=== PATIENT | female | born 1955 | race Caucasian/White ===

== ENCOUNTER → 2016-12-31 | Outpatient (CLI) | payer OTHER ==
[~2016-12-31] MED LIST: ALBUAER2 INH; ATOR-24 PO; CALC150C PO; CITA40TA12 PO; CMD5 PO; DULA1INJ INJ; ENAL20TA PO; INSU100I23 SQ; LSX20 PO; MAGN400T5 PO; MAGN500T15 PO; NVLG SQ; NVLGI SC; NVLGI SQ; OMEG10007 PO; OMEP40CA41 PO; OXYC-57 PO; PRED50TA PO; TRAM-10 PO; TRC145 PO; VNTHFA/IN INH; VST5 PO; WARF10TA4 PO; WARF5TAB7 PO
[2016-12-31 17:41] LABS: INR 2.6 (0.9-1.1); PROTHROMBIN TIME (PATIENT) 28.7 SECONDS (9.0-12.0)
== END | disposition home or self-care (01) ==
LOC: C.LABPBG 13:17
PROVIDERS: ATTEND Internal Medicine
DX: Z51.81 Encounter for therapeutic drug level monitoring (principal); Z79.01 Long term (current) use of anticoagulants

== ENCOUNTER → 2017-01-13 | Outpatient (CLI) | payer OTHER ==
--- NOTE | 2017-01-13 11:25 | DIAGNOSTIC IMAGING REPORT ---
THYROID ULTRASOUND HISTORY: E04.2 Multinodular [id number] COMPARISON: Thyroid ultrasound 09/07/2015. FINDINGS: Right lobe: 9.1 x 4.6 x 5.3 cm. Heterogeneous containing multiple nodules. Dominant nodule measures 5.7 x 6.6 x 4.2 cm. This is similar in size to the prior study. There is a second hyperechoic 3.4 x 4.2 x 3.3 cm nodule. Left lobe: 6.6 x 2.8 x 2.9 cm. Stable 17 x 16 x 15 mm hypoechoic nodule. This may contain a few cystic spaces rather than calcification. This is also similar in size compared to the prior study. IMPRESSION: Enlarged multinodular thyroid gland as described above. Bilateral thyroid nodules are similar to the prior study. Electronically signed by: Tylor Phillip M.D. 01/13/2017 11:24 AM Dictated Date/Time: 01/13/2017 11:20 AM
== END | disposition home or self-care (01) ==
LOC: C.ULTR 10:36
PROVIDERS: ATTEND Neuromusculoskeletal Medicine & OMM
DX: E04.2 Nontoxic multinodular goiter (principal); K11.20 Sialoadenitis, unspecified

== ENCOUNTER → 2017-01-14 | Outpatient (CLI) | payer OTHER ==
[2017-01-14 12:45] LABS: CHOLESTEROL/HDL RATIO 4.1
== END | disposition home or self-care (01) ==
LOC: C.LABPBG 08:53
PROVIDERS: ATTEND Neuromusculoskeletal Medicine & OMM
DX: E11.65 Type 2 diabetes mellitus with hyperglycemia (principal)

== ENCOUNTER → 2017-04-05 | Outpatient (CLI) | payer OTHER ==
[2017-04-05 17:34] LABS: BLOOD UREA NITROGEN 22 mg/dl (7-18); BUN/CREATININE RATIO 20.1 (10-20); CALCIUM 9.2 mg/dl (8.5-10.1); CARBON DIOXIDE 33 mmol/L (21-32); CHLORIDE 101 mmol/L (98-107); GLUCOSE 268 mg/dl (70-99); POTASSIUM 4.3 mmol/L (3.5-5.1); SODIUM 138 mmol/L (136-145)
[2017-04-05 18:32] LABS: RATIO 61.6 mcg/mg (0-30.0)
[2017-04-06 06:06] LABS: ESTIMATED AVERAGE GLUCOSE 209 mg/dl; HA1C FLAG Normal (Normal)
== END | disposition home or self-care (01) ==
LOC: C.LABPBG 14:03
PROVIDERS: ATTEND Nurse Practitioner Family
DX: E11.65 Type 2 diabetes mellitus with hyperglycemia (principal)

== ENCOUNTER → 2017-05-12 | Outpatient (CLI) | payer OTHER ==
--- NOTE | 2017-05-13 05:23 | PAP/PSG TECHNICIAN REPORT ---
[facility] Physical Chemist Polysomnogram Report Study name: None Report date: 05/13/2017 Study date: 05/12/2017 Referring Physician: Dr. Darren Van Name: URIEL ARMIJO Interpreting Physician: Andrae Baum M.D. Date of : 1955 Physical Chemist: KRISTIE Zepeda. Sex: Female Age: 61 StudyType: PSG PAP Weight: 298 lbs Height: 61 years, Height 5' 7" Neck Circum:21inches BMI: 46.67 Medications: Jantoven 10mg, Warfarin 10mg, Citalopram 40mg, Lantus 100unit/ml, Novolog 100unit/ml, Omeprazole 40mg, Enalapril 20mg, Furosemide 20mg, Clindamycin 300mg, Dexamethasone 0.75mg, Lipitor 40mg, Claritin 10mg, Patient History Study started on room air with 4cwp cpap in room #8. 61 yr old female here tonight for a new titration study. She had a HST that had an average CHEVY of 22. Her neck circ=21 inches. She failed cpap years ago but is willing to try again. Parameters Monitored NPSG: E1-M2, E2-M1, Fp1-M2, Fp2-M1, F3-M2, F4-M2, F4-M1, C3-M2, C4-M2, C4-M1, O1-M2, O2-M2, O2-M1, T3-M2, T4-M1, P3-M2, P4-M1, CHIN1, CHIN2, HR, EKG, Legs, PFLOW, SNOR, FLOW, CFLOW, Tidal Volume, THOR, ABDO, SpO2, PLTH, CPRESS, ETCO2 Wave, ETCO2, pH Sleep Architecture Sleep Stages Time at Lights Off 10:36:43 PM STAGES Time (min.) TST (%) Time at Lights On 5:00:13 AM Wake 109.5 -- Total Recording Time (TRT) 383.50 min. N1 17.0 6 Total Sleep Period (TSP) 324.0 min. N2 183.5 67 Total Sleep Time (TST) 274.0min. N3 73.5 27 Awake Time 109.5 min. REM 0.0 0 Wake after Sleep Onset 66.0 min. Sleep Efficiency (SE) 71 % Sleep Onset Latency (SALAS) 43.5 min. Number of Stage 1 Shifts None Awakenings 19 Stage Changes 76 Number of REM periods N/A REM 0.0 0 REM Latency NONE min. NREM 274.0 100 Body Position Analysis Supine Right Left Side Prone Vertical Total Sleep Time (min.) 99.8 0.0 239.5 239.50 0.0 0.0 Total Sleep Time (%) 13% 0% 87% 87 0% N/A% Total Sleep Time REM (min.) 0.0 0.0 0.0 None 0.0 0.0 Total Sleep Time NREM (min.) 34.5 0.0 239.5 None 0.0 0.0 Intermittent Wake (min.) 65.3 0.0 44.2 None 0.0 0.0 Total Sleep Period (%) 14% None None None None None Arousals Myoclonus (PLM) * Events Count Index Events Count Index Spontaneous 9 2 Events Awake (PLMW) 200 109.6 Respiratory 13 2.6 Events Asleep w/ Arousal (PLMA) 18 3.9 PLM 18 4 Events Asleep w/o Arousal (PLMS) 459 100.5 Snoring 8 2 Total Asleep 477 104.5 Total 47 10 Total 677 106 Respiratory Analysis * CA OA MA CH H RERA Total Count 0 5 0 0 25 0 30 Index 0.0 1.1 0.0 0 5.5 0 6.6 Mean Duration 0.0 25.9 0.0 0.00 24.2 0.0 24.5 Longest Duration 0.0 40.8 0.0 0.00 0.0 0.0 42.5 Respiratory Event Summary Total Supine ~Supine Right Left Prone REM NREM Apneas Count 5 1 4 N/A 4 N/A N/A 5 Index 1.1 2 1 N/A 1.0 N/A N/A 1 Hypopneas (4% Desat) Count 25 2 23 N/A 23 N/A N/A 25 Index 5.5 3.5 6 N/A 5.8 N/A N/A 5.5 Apneas & All Hypopneas Count 30 3 27 N/A 27 N/A N/A 30 Index 6.6 5 7 N/A 7 N/A N/A 6.6 Respiratory Events (Service Officer+All Hyp+RERA) Count 30 3 27 N/A 27 N/A N/A 30 Index 6.6 5 7 N/A 6.8 N/A N/A 6.6 Respiratory Related Arousal Count 13 3 10 N/A 10 N/A N/A 12 Index 2.6 3 3 N/A 3 N/A N/A 3 Snoring Analysis Supine Right Left Prone REM NREM Total Snore duration 8.6 min Snores count 147 N/A 223 N/A N/A 370 370 Snore mean duration 1.4 Sec Snores index 256 N/A 56 N/A N/A 81.0 81.0 TST with snoring (%) 3.1% Desaturation Event Summary: Minimum %SpO2 Event Count Mean/Min/Max Duration(sec.) Desaturation Index % Time In Bed > 90 85 26.1 / 8.0 / 58.8 14.6 93.0 86 - 90 2 8.5 / 8.0 / 9.0 4.7 6.8 81 - 85 0 N/A 0.0 0.1 76 - 80 0 N/A 0.0 0.0 71 - 75 0 N/A 0.0 0.0 66 - 70 0 N/A 0.0 0.0 61 - 65 0 N/A 0.0 0.0 56 - 60 0 N/A 0.0 0.0 51 - 55 0 N/A 0.0 0.0 < 50 0 N/A 0.0 0.0 Total REM NREM Awake <50% 0.0 min. 0.0 min. 0.0 min. 0.0 min. 51 - 60% 0.0 min. 0.0 min. 0.0 min. 0.0 min. 61 - 70% 0.0 min. 0.0 min. 0.0 min. 0.0 min. 71 - 80% 0.0 min. 0.0 min. 0.0 min. 0.0 min. 81 - 90% 26.1 min. 0.0 min. 11.7 min. 14.4 min. 91 - 100% 348.6 min. 0.0 min. 262.3 min. 86.3 min. Average 93 0 93 92 Minimum SpO2 81 N/A 87 81 Desaturation Event Index 13.3 0.0 8.8 25.2 # Desat. Events below 89% 19 N/A 8 11 Time(%) with Saturation below 89% 0.7 0.0 0.2 0.5 Time(min.) with Saturation below 89% 2.7 0.0 0.8 1.9 Time (mins) REM (mins) NREM (mins) % of TST SpO2 Below 90% 33 N/A N33 1.2 SpO2 Below 88% 3 0 0 0 Heart Rate Analysis Min (bpm) Max (bpm) Average (bpm) Awake 59 110 74 NREM 59 81 68 REM N/A N/A N/A Overall 59 81 68 Supplemental O2 Values Minimum O2 level: None Value Start Time End Time Physical Chemist Comments Mrs. Armijo slept in the left and supine positions. Cardiac arrhythmia and leg movements noted, please see print out. No bruxism noted. CPAP was initiated at +4 CMH2O and up-titrated to an optimal level of +10 CMH2O, which nearly eliminated all respiratory events and snoring. A small Quattro Air full face mask by [employer]umi was used during titration. She did not use the restroom during the night. She stated that she slept better than she thought she would. The final report will be interpreted and signed by a sleep physician. The completed physician report will then be placed in the patient medical record. Therapy Event: Therapy (cm H20) 4 5 6 7 8 9 10 Total Time at Pressure (min.) 55.4 48.4 8.5 14.9 138.0 53.7 64.5 TST at Pressure (min.) 9.5 35.8 8.5 14.9 113.0 46.2 46.0 # Periods 1 1 1 1 1 1 1 Sleep Onset (min.) 43.5 2.1 0.0 0.0 0.0 0.0 0.0 REM Onset (min.) N/A N/A N/A N/A N/A N/A N/A Sleep Efficiency % 17 73 100 100 81 86 71 Wakefulness (%) 82.8 26.1 0.0 0.0 18.1 14.0 28.7 Wakefulness (min.) 45.9 12.6 0.0 0.0 25.0 7.5 18.5 NREM 1 (%) 1.8 9.3 5.9 6.7 2.7 5.1 5.4 NREM 1 (min.) 1.0 4.5 0.5 1.0 3.8 2.7 3.5 NREM 2 (%) 15.4 64.6 94.1 81.7 33.7 64.2 65.9 NREM 2 (min.) 8.5 31.3 8.0 12.2 46.5 34.5 42.5 NREM 3 (%) 0.0 0.0 0.0 11.6 45.5 16.8 0.0 NREM 3 (min.) 0.0 0.0 0.0 1.7 62.8 9.0 0.0 REM (%) 0.0 0.0 0.0 0.0 0.0 0.0 0.0 REM (min.) 0.0 0.0 0.0 0.0 0.0 0.0 0.0 # Arousals 7 16 4 2 8 5 5 Arousal Index 44.2 26.8 28.3 8.0 4.2 6.5 6.5 # Snore 46 113 21 130 26 17 17 Snore Index 290.5 189.3 148.6 522.0 13.8 22.1 22.2 AHI 12.6 8.4 49.5 20.1 3.2 6.5 0.0 AHI Supine 12.6 2.4 N/A N/A N/A N/A N/A AHI Non-Supine N/A 22.2 49.5 20.1 3.2 6.5 0.0 NREM AHI 12.6 8.4 49.5 20.1 3.2 6.5 0.0 REM AHI N/A N/A N/A N/A N/A N/A N/A RDI 12.6 8.4 49.5 20.1 3.2 6.5 0.0 # Obstructive 0 1 0 0 3 1 0 # Central Ap 0 0 0 0 0 0 0 # Mixed 0 0 0 0 0 0 0 # Hypopneas 2 4 7 5 3 4 0 RERAS 0 0 0 0 0 0 0 Total Respiratory Events 2 5 7 5 6 5 0 Time Below SpO2 89.00% (min.) 0.0 0.1 0.2 0.0 0.3 0.2 0.0 Mean NREM SpO2 (%) 92 92 92 92 93 94 93 Mean REM SpO2 (%) N/A N/A N/A N/A N/A N/A N/A Mean Sleep SpO2 (%) 92 92 92 92 93 94 93 Min NREM SpO2 (%) 89 87 88 89 87 87 89 Min REM SpO2 (%) N/A N/A N/A N/A N/A N/A N/A Position Supine (min.) 9.5 25.0 0.0 0.0 0.0 0.0 0.0 Position Non-supine (min.) 0.0 10.8 8.5 14.9 113.0 46.2 46.0 LM Index Sleep 183.2 164.2 148.6 144.5 84.4 33.8 140.8 LM Index NREM 183.2 164.2 148.6 144.5 84.4 33.8 140.8 LM Index REM N/A N/A N/A N/A N/A N/A N/A Mean Heart Rate (bpm) 74 72 72 72 68 65 65 Min Heart Rate (bpm) 69 65 65 66 60 59 59
--- NOTE | 2017-05-17 06:57 | POLYSOMNOGRAPH REPORT ---
CLINICAL DATA: A 61-year-old female with BMI of 46.[address] Tal Van for a titration study. She had a home sleep study that showed moderate sleep apnea with an CHEVY of 22. She failed CPAP years ago, but was willing to try again. SLEEP ARCHITECTURE: Total sleep period was 324 minutes. Total sleep time was 274 minutes of all non-REM sleep. Sleep onset latency was delayed at 43.5 minutes. Sleep efficiency was 71%. Wake after sleep onset was 66 minutes. Sleep consisted of stage N1 6%, N2 67%, and N3 27%. AROUSAL DATA: 47 arousals were recorded for an index of 10 per hour. PERIODIC LIMB MOVEMENT DATA: Severely elevated limb movements during sleep were noted. There were 477 limb movements of sleep noted for an index of 104.5 per hour with arousal index of 3.9 per hour. RESPIRATORY DATA: The AHI was 6.6. There 5 obstructive apneic episodes. The longest apneic episode was 40.8 seconds. There were 25 hypopneic episodes. The mean duration of hypopnea was 24.2 seconds. OXIMETRY DATA: Transient hypoxemia was seen. Oxygen jamie was 87%. Mean saturation was 93%. Time below 88% was 3 minutes. EKG: Heart rates ranged from 59-81 beats per minute. No significant cardiac arrhythmias were noted. 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 Frequent leg movements were noted. The patient used a small Quattro Air full facemask by [employer]. She was titrated up to a final pressure of 10 cm water pressure. At that level, she slept for 46 minutes with an AHI of 0. IMPRESSION: Moderate sleep apnea corrected with CPAP 10 cm of water pressure, small Quattro full facemask by [employer]. RECOMMENDATIONS: The patient should be started on the above noted treatment regimen and seen back in followup within 90 days to document efficacy and compliance. [facility]
== END ==
LOC: C.NEUR 20:00
PROVIDERS: ATTEND Internal Medicine
DX: G47.30 Sleep apnea, unspecified (principal)

== ENCOUNTER → 2017-06-02 | Outpatient (CLI) | payer OTHER ==
[2017-06-02 17:22] LABS: BASO % 0.6 %; BASO ABS # 0.03 K/uL (0-0.2); COMPLETE YES; EOS % 2.8 %; HEMATOCRIT 44.3 % (37-47); IG% 0.2 %; LYMPH % 36.1 %; LYMPH ABS # 1.92 K/uL (1.2-3.4); MEAN CELL VOLUME 94.5 fL (80-100); MEAN CORPUSCULAR HEMOGLOBIN 31.3 pg (25-34); MEAN CORPUSCULAR HGB CONC 33.2 g/dl (32-36); MEAN PLATELET VOLUME 12.3 fL (7.4-10.4); MONO % 8.3 %; PLATELET COUNT 165 K/uL (130-400); RED BLOOD COUNT 4.69 M/uL (4.2-5.4); WHITE BLOOD COUNT 5.32 K/uL (4.8-10.8)
[2017-06-02 17:40] LABS: ALT/SGPT 44 U/L (12-78); AST/SGOT 35 U/L (15-37); BLOOD UREA NITROGEN 22 mg/dl (7-18); BUN/CREATININE RATIO 21.8 (10-20); CALCIUM 8.9 mg/dl (8.5-10.1); CARBON DIOXIDE 30 mmol/L (21-32); CHLORIDE 106 mmol/L (98-107); GLUCOSE 154 mg/dl (70-99); POTASSIUM 4.7 mmol/L (3.5-5.1); SODIUM 141 mmol/L (136-145)
[2017-06-02 17:43] LABS: ALB/GLOB RATIO 0.8 (0.9-2); ALKALINE PHOSPHATASE 54 U/L (45-117)
[2017-06-02 18:03] LABS: CHOLESTEROL/HDL RATIO 2.7
[2017-06-02 18:07] LABS: RATIO 38.1 mcg/mg (0-30.0)
[2017-06-02 18:49] LABS: ESTIMATED AVERAGE GLUCOSE 183 mg/dl; HA1C FLAG Normal (Normal)
== END | disposition home or self-care (01) ==
LOC: C.LABPBG 10:59
PROVIDERS: ATTEND Nurse Practitioner Family
DX: R06.02 Shortness of breath (principal); E11.65 Type 2 diabetes mellitus with hyperglycemia

== ENCOUNTER → 2017-07-14 | Outpatient (CLI) | payer OTHER ==
[2017-07-14 12:44] LABS: CHOLESTEROL/HDL RATIO 3.3
== END | disposition home or self-care (01) ==
LOC: C.LABPBG 09:50
PROVIDERS: ATTEND Internal Medicine
DX: M25.40 Effusion, unspecified joint (principal)

== ENCOUNTER 2017-07-24 09:59 | Emergency (ER) | payer OTHER ==
[~2017-07-24] VITALS: Ht 170.2 cm; Wt 136.7 kg
[~2017-07-24 09:59] MED LIST changes: -CALC150C PO; -DULA1INJ INJ; -ENAL20TA PO; -INSU100I23 SQ; -MAGN500T15 PO; -NVLG SQ; -OMEG10007 PO; -OMEP40CA41 PO; -OXYC-57 PO; -PRED50TA PO; -TRAM-10 PO; -TRC145 PO; -VNTHFA/IN INH; -WARF10TA4 PO; -WARF5TAB7 PO
[2017-07-24 10:04] VITALS: TEMP 36.4; Ht 170.2 cm; Wt 136.7 kg
[2017-07-24] MEDS ORDERED: CYCLOBENZAPRINE HCL 5 MG TAB PO STA (10:24)
[2017-07-24] MEDS ORDERED: METHYLPREDNISOLONE 125 MG VIAL IV STA (10:24)
[2017-07-24] MEDS ORDERED: ACETAMINOPHEN 500 MG TAB PO STA (10:24)
--- NOTE | 2017-07-24 10:28 | EMERGENCY ROOM VISIT NOTE ---
History Report prepared by Miranda: Giana Klein Under the Supervision of: Dr. Soto Petit M.D. 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 The patient states that she has been having right hip pain that radiates into her buttock and down her right leg. She notes that she was recently diagnosed with sciatica and has seen a chiropractor without relief of her symptoms. She reports that she has also been trying to use ice, heat, and Tylenol for her pain without relief as well. The patient states that her mother is sick and she has been doing more lifting to help her recently. Positive numbness in the right leg. She reports that she has been stumbling more recently secondary to the numbness. Negative groin numbness or tingling, SOB, fever, chills, weight loss, recent travel, recent trauma, alcohol use, drug use. She states that she is on Warfarin and her levels checked monthly have been good. Source of History: patient Onset: a few weeks ago Position: leg (right) Quality: numbness Timing: constant Modifying Factors (Relieving): other (none) Associated Symptoms: + numbness, No fevers, No chills, No SOB Note: Negative groin numbness or tingling, weight loss, recent travel, recent trauma, alcohol use, drug use. Review of Systems See HPI for pertinent positives and negatives. A total of ten systems were reviewed and were otherwise negative. Past Medical & Surgical Medical Problems: (1) Adrenal Disorder Nec (2) Celiac disease (3) Diab Kelsy Wo Compl, Type Ii Or Unspec Type, Not Uncntrld (4) Factor V disorder (5) Heart disease (6) HTN (hypertension) (7) Lyme disease (8) Pericarditis (9) Pulmonary embolism Surgical Problems: (1) H/O cardiac catheterization (2) H/O total adrenalectomy (3) History of hysterectomy (4) Pacemaker Family History Diabetes mellitus FH: cancer FH: gallbladder disease Hypertension Kidney disease Kidney stones Stroke Social History Smoking Status: Never Smoker Alcohol Use: none Drug Use: none Marital Status: Housing Status: lives with significant other Occupation Status: employed Current/Historical Medications Scheduled Albuterol (Ventolin Hfa), 2 PUFFS INH Q4 Atorvastatin (Lipitor), 40 MG PO DAILY Calcium Citrate (Angelo-Citrate), 600 MG PO TID Citalopram Hydrobromide (Celexa), 40 MG PO QPM Dulaglutide (Trulicity), 0.75 MG INJ WK Enalapril Maleate (Enalapril Maleate), 20 MG PO BID Fish Oil (Milton-3), 1 CAP PO DAILY Furosemide (Furosemide), 40 MG PO DAILY Insulin Aspart (Novolog), 30-45 UNITS SQ TID Insulin Glargine (Basaglar Kwikpen), 60 UNITS SQ QAM Insulin Glargine (Basaglar Kwikpen), 75 UNITS SQ QPM Magnesium (Magnesium), 500 MG PO DAILY Prednisone (Prednisone), 50 MG PO DAILY Warfarin Sod (Jantoven), 5 MG PO DIRECTED Warfarin Sod (Jantoven), 10 MG PO DIRECTED Scheduled PRN Tramadol (Ultram), 25 MG PO Q8H PRN for Pain Allergies Coded Allergies: Benzocaine (Verified Allergy, Unknown, water blisters, 07/24/17) Penicillins (Verified Allergy, Unknown, unknown, 07/24/17) Fenofibrate (Unverified Adverse Reaction, Unknown, diarrhea, 07/24/17) Morphine (Verified Adverse Reaction, Unknown, vomiting, 07/24/17) Physical Exam Vital Signs Date Time Temp Pulse Resp B/P (MAP) Pulse Ox O2 Delivery O2 Flow Rate FiO2 07/24/17 13:00 72 16 132/75 94 Room Air 07/24/17 12:00 89 16 137/77 94 Room Air 07/24/17 10:04 36.4 85 18 156/80 98 Room Air Physical Exam GENERAL: Awake, alert, obese, well-appearing, NAD HENT: Normocephalic, atraumatic. EYES: Normal conjunctiva. Sclera non-icteric. NECK: Supple. No nuchal rigidity. FROM. RESPIRATORY: CTAB, no rhonchi, wheezing, crackles CARDIAC: RRR, no MRG, distant sounds secondary to body habitus 2/2 ABDOMEN: Soft, NTND, BS+ MSK: No chest wall TTP, no LE edema, has some reproducible right lower back pain , lower lumbar vertical incisional scar, pain with internal and external rotation of hip. Mild right calf pain, no erythema, calor, or asymmetry NEURO: GCS 15, CN 2-12 intact, moves all 4s on command +SLR -opposite SLR - ROSE MARY test, neuro intact distally, no saddle anesthesia SKIN: No rash or jaundice noted. Medical Decision & Procedures ER Provider Diagnostic Interpretation: Radiology results as stated below per my review and radiologist interpretation: RIGHT LOWER EXTREMITY VENOUS DOPPLER FINDINGS: The right common femoral, superficial femoral and popliteal veins were compressible. Augmentation was normal. Flow was shown within the deep calf vessels. IMPRESSION: No evidence of deep venous thrombus within the right lower extremity. Electronically signed by: Gm Pittman M.D. 07/24/2017 11:46 AM Dictated Date/Time: 07/24/2017 11:46 AM Laboratory Results 07/24/17 10:50 Red Blood Count 4.79, Mean Corpuscular Volume 93.5, Mean Corpuscular Hemoglobin 30.3, Mean Corpuscular Hemoglobin Concent 32.4, Mean Platelet Volume 11.3, Neutrophils (%) (Auto) 56.4, Lymphocytes (%) (Auto) 32.3, Monocytes (%) (Auto) 7.2, Eosinophils (%) (Auto) 3.3, Basophils (%) (Auto) 0.6, Neutrophils # (Auto) 3.04, Lymphocytes # (Auto) 1.74, Monocytes # (Auto) 0.39, Eosinophils # (Auto) 0.18, Basophils # (Auto) 0.03 07/24/17 10:50 Test 07/24/17 10:50 White Blood Count 5.39 K/uL (4.8-10.8) Red Blood Count 4.79 M/uL (4.2-5.4) Hemoglobin 14.5 g/dL (12.0-16.0) Hematocrit 44.8 % (37-47) Mean Corpuscular Volume 93.5 fL (80-100) Mean Corpuscular Hemoglobin 30.3 pg (25-34) Mean Corpuscular Hemoglobin Concent 32.4 g/dl (32-36) Platelet Count 191 K/uL (130-400) Mean Platelet Volume 11.3 fL (7.4-10.4) Neutrophils (%) (Auto) 56.4 % Lymphocytes (%) (Auto) 32.3 % Monocytes (%) (Auto) 7.2 % Eosinophils (%) (Auto) 3.3 % Basophils (%) (Auto) 0.6 % Neutrophils # (Auto) 3.04 K/uL (1.4-6.5) Lymphocytes # (Auto) 1.74 K/uL (1.2-3.4) Monocytes # (Auto) 0.39 K/uL (0.11-0.59) Eosinophils # (Auto) 0.18 K/uL (0-0.5) Basophils # (Auto) 0.03 K/uL (0-0.2) RDW Standard Deviation 48.1 fL (36.4-46.3) RDW Coefficient of Variation 14.1 % (11.5-14.5) Immature Granulocyte % (Auto) 0.2 % Immature Granulocyte # (Auto) 0.01 K/uL (0.00-0.02) Prothrombin Time 23.9 SECONDS (9.0-12.0) Prothromb Time International Ratio 2.2 (0.9-1.1) Anion Gap 5.0 mmol/L (3-11) Est Creatinine Clear Calc Drug Dose 71.2 ml/min Estimated GFR () 56.5 Estimated GFR (Non- 48.7 BUN/Creatinine Ratio 21.0 (10-20) Calcium Level 9.4 mg/dl (8.5-10.1) Laboratory results reviewed by me Medications Administered Medications (Trade) Dose Ordered Sig/Juan David Route Start Time Stop Time Status Last Admin Dose Admin Methylprednisolone Sodium Succinate (Solu-Medrol IV) 125 mg NOW STAT IV 07/24/17 10:24 07/24/17 10:27 DC 07/24/17 10:32 125 MG Cyclobenzaprine HCl (Flexeril Tab) 10 mg QAM STAT PO 07/24/17 10:24 07/24/17 10:27 DC 07/24/17 10:32 10 MG Acetaminophen (Tylenol Tab) 1,000 mg NOW STAT PO 07/24/17 10:24 07/24/17 10:27 DC 07/24/17 10:33 1,000 MG Sodium Chloride 500 ml @ 999 mls/hr Q31M STAT IV 07/24/17 11:30 07/24/17 12:00 DC 07/24/17 12:08 999 MLS/HR ED Course 1009: The patient was evaluated in room A12B. A complete history and physical exam was performed. 1102: I reevaluated the patient. She is resting comfortably. 1209: I reevaluated and updated the patient. 1221: I reevaluated the patient. Discussed results and discharge instructions: She verbalized understanding and agreement. The patient is ready for discharge. 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 Differential diagnosis: Etiologies such as musculoskeletal, disc herniation, fracture, aortic disease, metastatic disease, cord compression, discitis, infection, renal colic, gastrointestinal, acute exacerbation of chronic back pain, sciatica, cauda equina, as well as others were entertained. Patient was seen and evaluated at the bedside. Patient had signs and symptoms concerning with a possible radiculopathy versus sciatica. Patient did not have any unexplained weight loss, bowel or bladder incontinence, saddle anesthesia or lower extremity weakness. Patient also did not have any history of IV drug abuse or chronic steroids or immunosuppressive therapy. Patient had blood work that was fairly unremarkable. Patient also had an ultrasound given her history of factor V Leiden which was negative for acute thrombus. Patient's INR was also therapeutic. Patient's pain mildly improved. Patient did have mild elevation compared to previous and her kidney functions issues given some fluids. Patient was given strict follow-up for discharge, return precautions as well as reasons to return emergently into the ER. Patient was also told she needs to continue physical therapy and exercises as well as diet and weight loss and more conservative therapy. Patient was told to return if she has numbness saddle anesthesia bowel or bladder incontinence or weakness. Patient agreed with plan of care and patient was safely discharged home. Medication Reconcilliation Current Medication List: was personally reviewed by me Blood Pressure Screening Patient's blood pressure: Elevated blood pressure Blood pressure disposition: Elevated BP felt to be situational Impression Primary Impression: Sciatica of right side Additional Impression: Back pain Scribe Attestation The scribe's documentation has been prepared under my direction and personally reviewed by me in its entirety. I confirm that the note above accurately reflects all work, treatment, procedures, and medical decision making performed by me. Departure Information Dispostion Home / Self-Care Prescriptions Tramadol (Ultram) 50 Mg Tab 25 MG PO Q8H Y for Pain, #14 TAB Prov: Soto Petit M.D. 07/24/17 Prednisone (Prednisone) 50 Mg Tab 50 MG PO DAILY for back pain for 4 Days, TAB Prov: Soto Petit M.D. 07/24/17 Referrals Tal Van M.D. (PCP) Forms HOME CARE DOCUMENTATION FORM, IMPORTANT VISIT INFORMATION Patient Instructions ED Sciatica, Exercises Back Release, Exercises Back Seated Rotation, Exercises Back Side Stretch, Exercises Lower Back Rotation, My [facility] [place] [employer] Additional Instructions Please return to the emergency department if you have worsening or recurrent symptoms not amenable to at-home treatment. Please call for a follow-up appointment with her primary care physician. Please take your medications as prescribed. If you have other concerns and/or complaints please feel free to also call your primary care physician's office or return the ED for further evaluation, management, and treatment. Please take Tylenol 1000mg every 6 hours over the next two days for pain. Please take your prednisone and tramadol as prescribed. Tramadol can make you sleepy so please take when not needing to be alert, operate heavy machinery, and /or drive. Please return if you have numbness to the groin, lower extremity weakness, or bowel/bladder incontinence. You have been examined and treated today on an emergency basis only. This is not a substitute for, or an effort to provide, complete comprehensive medical care. It is impossible to recognize and treat all injuries or illnesses in a single emergency department visit. It is therefore important that you follow up closely with [facility]. Call as soon as possible for an appointment. Problem Qualifiers Additional Impression: Back pain Back pain location: low back pain Chronicity: acute Back pain laterality: right Sciatica presence: with sciatica Sciatica laterality: sciatica of right side Qualified Codes: M54.41 - Lumbago with sciatica, right side
[2017-07-24] MEDS ORDERED: TRC145 PO (10:50)
[2017-07-24] MEDS ORDERED: DULA1INJ INJ (10:50)
[2017-07-24] MEDS ORDERED: OMEP40CA41 PO (10:50)
[2017-07-24 10:59] LABS: BASO % 0.6 %; BASO ABS # 0.03 K/uL (0-0.2); COMPLETE YES; EOS % 3.3 %; HEMATOCRIT 44.8 % (37-47); IG% 0.2 %; LYMPH % 32.3 %; LYMPH ABS # 1.74 K/uL (1.2-3.4); MEAN CELL VOLUME 93.5 fL (80-100); MEAN CORPUSCULAR HEMOGLOBIN 30.3 pg (25-34); MEAN CORPUSCULAR HGB CONC 32.4 g/dl (32-36); MEAN PLATELET VOLUME 11.3 fL (7.4-10.4); MONO % 7.2 %; NEUT % 56.4 %; PLATELET COUNT 191 K/uL (130-400); RED BLOOD COUNT 4.79 M/uL (4.2-5.4); WHITE BLOOD COUNT 5.39 K/uL (4.8-10.8)
[2017-07-24 11:07] LABS: INR 2.2 (0.9-1.1); PROTHROMBIN TIME (PATIENT) 23.9 SECONDS (9.0-12.0)
[2017-07-24 11:16] LABS: CALCIUM 9.4 mg/dl (8.5-10.1); CREATININE 1.2 mg/dl (0.60-1.20); POTASSIUM 4.5 mmol/L (3.5-5.1)
[2017-07-24] MEDS ORDERED: MAGN500T15 PO (11:22)
[2017-07-24] MEDS ORDERED: OMEG10007 PO (11:22)
[2017-07-24] MEDS ORDERED: ENAL20TA PO (11:22)
[2017-07-24] MEDS ORDERED: CALC150C PO (11:22)
[2017-07-24] MEDS ORDERED: INSU100I23 SQ ×2 (11:22)
[2017-07-24] MEDS ORDERED: NVLG SQ (11:22)
[2017-07-24] MEDS ORDERED: WARF10TA4 PO (11:25)
[2017-07-24] MEDS ORDERED: WARF5TAB7 PO (11:25)
[2017-07-24] MEDS ORDERED: SODIUM CHLORIDE 0.9% 500ML 500 ML IV STA (11:30)
--- NOTE | 2017-07-24 11:48 | DIAGNOSTIC IMAGING REPORT ---
RIGHT LOWER EXTREMITY VENOUS DOPPLER CLINICAL HISTORY: Factor V, on coumadin, leg pain. COMPARISON STUDY: Bilateral lower extremity venous Doppler September 19, 2015. TECHNIQUE: Sonography of the deep venous system of the right lower extremity was performed. Compression and augmentation were evaluated. FINDINGS: The right common femoral, superficial femoral and popliteal veins were compressible. Augmentation was normal. Flow was shown within the deep calf vessels. IMPRESSION: No evidence of deep venous thrombus within the right lower extremity. Electronically signed by: Gm Pittman M.D. 07/24/2017 11:46 AM Dictated Date/Time: 07/24/2017 11:46 AM
[2017-07-24] MEDS ORDERED: PRED50TA PO (12:24)
[2017-07-24] MEDS ORDERED: TRAM-10 PO (12:24)
[2017-07-24 13:00] VITALS: BP 132/75; PULSE 72; O2SAT 94
== END 2017-07-24 13:42 | disposition home or self-care (01) ==
LOC: C.EDB 10:00 → C.EDA 13:42
DX: M54.41 Lumbago with sciatica, right side (principal); E78.5 Hyperlipidemia, unspecified; I10 Essential (primary) hypertension; D68.51 Activated protein C resistance; E11.9 Type 2 diabetes mellitus without complications; Z86.711 Personal history of pulmonary embolism; Z95.0 Presence of cardiac pacemaker; K90.0 Celiac disease; Z79.01 Long term (current) use of anticoagulants; Z90.710 Acquired absence of both cervix and uterus; Z83.3 Family history of diabetes mellitus; Z82.49 Family history of ischemic heart disease and other diseases of the circulatory system; Z84.1 Family history of disorders of kidney and ureter; Z82.3 Family history of stroke; Z79.899 Other long term (current) drug therapy; Z79.4 Long term (current) use of insulin

== ENCOUNTER 2017-08-02 09:50 | Observation (INO) | payer OTHER ==
[~2017-08-02] VITALS: Ht 170.2 cm; Wt 140.5 kg
[~2017-08-02 09:50] MED LIST changes: +CALC150C PO; -CMD5 PO; +DULA1INJ INJ; +ENAL20TA PO; +INSU100I23 SQ; -MAGN400T5 PO; +MAGN500T15 PO; +NVLG SQ; -NVLGI SC; -NVLGI SQ; +OMEG10007 PO; +TRAM-10 PO; -VST5 PO; +WARF10TA4 PO; +WARF5TAB7 PO
[2017-08-02] MEDS ORDERED: VNTHFA/IN INH (10:30)
[2017-08-02] MEDS ORDERED: FENTANYL CITRATE INJ 50 MCG/1 ML 2 ML VIAL IV STA ×2 (10:56→12:16)
--- NOTE | 2017-08-02 11:57 | DIAGNOSTIC IMAGING REPORT ---
RIGHT HUMERUS MIN 2 VIEWS ROUTINE CLINICAL HISTORY: right arm pain, deformity s/p fall Right trauma COMPARISON: None. DISCUSSION: Several compromise exam is a patient had difficulty cooperating for the study. Potential linear fracture radial head. Mild deformity of right humeral head and neck. This may be degenerative although a posttraumatic etiology is not excluded. The humeral shaft is intact. There is no evidence for soft tissue swelling. IMPRESSION: 1. Somewhat limited exam with the humeral shaft appear intact. 2. Degenerative change versus a fracture humeral head. 3. Potential linear nondisplaced hairline fracture radial head The above report was generated using voice recognition software. It may contain grammatical, syntax or spelling errors. Electronically signed by: Prakash Cruz M.D. 08/02/2017 11:55 AM Dictated Date/Time: 08/02/2017 11:53 AM
--- NOTE | 2017-08-02 13:10 | DIAGNOSTIC IMAGING REPORT ---
RIGHT SHOULDER CT CT DOSE: 711.35 mGy.cm HISTORY: Right shoulder pain. humerus, radial head fracture, poor quality x-ray Right TECHNIQUE: Multiaxial CT images of the shoulder were performed and reformatted in the sagittal and coronal plane without the use of contrast. A dose lowering technique was utilized adhering to the principles of ALARA. COMPARISON: Right humerus 08/02/2017. FINDINGS: There is a slightly comminuted right humeral neck fracture which extends to the greater tuberosity of the humeral head. The humeral neck fracture slightly impacted. The greater tuberosity fracture is displaced/angulated laterally. No dislocation. As also a slightly depressed fracture within the anterior inferior glenoid consistent with an osseous Bankart lesion. This is also distracted up to 2 mm. The visualized clavicles intact. There is a small bone island at the base of the coracoid process. Mild surrounding soft tissue swelling within the right shoulder. IMPRESSION: 1. Slightly comminuted and impacted right humeral neck fracture which extends into the greater tuberosity of the humeral head. 2. There is also a slightly depressed and slightly distracted fracture at the anterior inferior glenoid consistent with an osseous Bankart lesion. 3. No dislocation. Electronically signed by: Tylor Phillip M.D. 08/02/2017 1:08 PM Dictated Date/Time: 08/02/2017 1:04 PM
[2017-08-02] MEDS ORDERED: HYDROmorphone INJ 1 MG/ML SYR IV STA (13:36)
--- NOTE | 2017-08-02 15:05 | EMERGENCY ROOM VISIT NOTE ---
History First contact with patient: 10:24 Chief Complaint: FALL Stated Complaint: ARM FRACTURE History of Present Illness The patient is a 61 year old female who presents to the Emergency Room, ALS, with complaints of right arm pain. The patient states she was getting things out of her vehicle this morning, when her foot slipped in the mud. She states she fell into the grass, landing on her right upper arm. The patient denies any loss consciousness, head injury, head, neck, back pain, or other associated symptoms. The patient complains of right upper arm pain from just distal to the shoulder to the proximal elbow. The patient denies any history of injury to the right arm or history of falls. Patient states she was on the ground for approximately 30 minutes prior to EMS arrival. The patient states while in route, she was given fentanyl 100 g, but states it did not help with the pain. EMS did place the arm and [place] splint and a sling. Patient is on warfarin, 5 mg daily for a history of blood clots and Factor V Leiden. The patient rates the pain 7/10, and describes it as sharp. She has been unable to tolerate movement of the arm, as this significantly worsens the pain. Review of Systems A complete 10 point review of systems was reviewed with the patient with pertinent positives and negatives as per history of present illness. All else were negative. Past Medical/Surgical History Medical Problems: (1) Adrenal Disorder Nec (2) Celiac disease (3) Diab Kelsy Wo Compl, Type Ii Or Unspec Type, Not Uncntrld (4) Factor V disorder (5) Heart disease (6) HTN (hypertension) (7) Lyme disease (8) Pericarditis (9) Pulmonary embolism Surgical Problems: (1) H/O cardiac catheterization (2) H/O total adrenalectomy (3) History of hysterectomy (4) Pacemaker Family History Diabetes mellitus FH: cancer FH: gallbladder disease Hypertension Kidney disease Kidney stones Stroke Social History Smoking Status: Never Smoker Alcohol Use: none Drug Use: none Marital Status: Housing Status: lives with significant other Occupation Status: employed Current/Historical Medications Scheduled Atorvastatin (Lipitor), 40 MG PO DAILY Calcium Citrate (Angelo-Citrate), 600 MG PO TID Citalopram Hydrobromide (Celexa), 40 MG PO QPM Dulaglutide (Trulicity), 0.75 MG INJ WK Enalapril Maleate (Enalapril Maleate), 20 MG PO BID Fish Oil (Etna-3), 1 CAP PO DAILY Furosemide (Furosemide), 40 MG PO DAILY Insulin Aspart (Novolog), 30-45 UNITS SQ TID Insulin Glargine (Basaglar Kwikpen), 60 UNITS SQ QAM Insulin Glargine (Basaglar Kwikpen), 75 UNITS SQ QPM Magnesium (Magnesium), 500 MG PO DAILY Warfarin Sod (Jantoven), 5 MG PO DIRECTED Warfarin Sod (Jantoven), 10 MG PO DIRECTED Scheduled PRN Albuterol Hfa (Ventolin Hfa), 2 PUFFS INH Q4H PRN for SOB/Wheezing Physical Exam Vital Signs Date Time Temp Pulse Resp B/P (MAP) Pulse Ox O2 Delivery O2 Flow Rate FiO2 08/02/17 14:22 77 18 141/77 98 Room Air 08/02/17 13:46 93 Room Air 08/02/17 13:03 76 18 153/82 96 Room Air 08/02/17 12:01 73 18 144/76 93 Room Air 08/02/17 10:07 36.7 80 20 183/90 94 Room Air Physical Exam VITALS: Vitals are noted on the nurse's note and reviewed by myself. Vital signs stable. GENERAL: This is a 61-year-old obese female, in no acute distress, but appears in pain, nondiaphoretic, well-developed well-nourished. SKIN: The skin was without rashes, erythema, edema, or bruising. There is no tenting of the skin. Capillary reflex less than 2 seconds. HEAD: Normocephalic atraumatic. EARS: External auditory canals clear, tympanic membranes pearly guzman without erythema or effusion bilaterally. EYES: Pupils equal round and reactive to light and accommodation. Conjunctivae without injection, sclerae without icterus. Extraocular movements intact. NOSE: Patent, turbinates without inflammation or discharge. No sinus tenderness. MOUTH: Mucous membranes moist. Tonsils are not enlarged. Pharynx without erythema or exudate. Uvula midline. Airway patent. Tongue does not deviate. NECK: Supple without nuchal rigidity. No lymphadenopathy. No thyromegaly. Cervical spine is nontender. No JVD. HEART: Regular rate and rhythm without murmurs gallops or rubs. LUNGS: Clear to auscultation bilaterally without wheezes, rales or rhonchi. No dullness to percussion. No retractions or accessory muscle use. ABDOMEN: Positive bowel sounds x 4. Normal tympanic percussion. Soft, nontender, without masses or organomegaly. Mendenhall sign negative. No guarding or rebound tenderness. MUSCULOSKELETAL: Very mild deformity of the right humerus. This could be positional. The patient has significant point tenderness on the proximal right humerus. The patient is unable to tolerate movement of the shoulder or elbow due to pain in the upper arm. The patient denies any elbow pain. She denies any numbness or tingling. Capillary refill less than 2 seconds. The patient is able to pronate and supinate, however this is significantly limited due to pain. Otherwise, no muscle atrophy, erythema, or edema noted. Full range of motion without joint tenderness in all extremities. No tenderness to palpation. Normal gait. Strength 5/5 throughout. NEURO: Patient was alert and oriented to person place and time. Normal sensation to light and sharp touch. Deep tendon reflexes 2+ throughout. No focal neurological deficits. Medical Decision & Procedures ER Provider Diagnostic Interpretation: X-Ray Right Humerus: DISCUSSION: Several compromise exam is a patient had difficulty cooperating for the study. Potential linear fracture radial head. Mild deformity of right humeral head and neck. This may be degenerative although a posttraumatic etiology is not excluded. The humeral shaft is intact. There is no evidence for soft tissue swelling. IMPRESSION: 1. Somewhat limited exam with the humeral shaft appear intact. 2. Degenerative change versus a fracture humeral head. 3. Potential linear nondisplaced hairline fracture radial head CT Scan Right Upper Arm: FINDINGS: There is a slightly comminuted right humeral neck fracture which extends to the greater tuberosity of the humeral head. The humeral neck fracture slightly impacted. The greater tuberosity fracture is displaced/angulated laterally. No dislocation. As also a slightly depressed fracture within the anterior inferior glenoid consistent with an osseous Bankart lesion. This is also distracted up to 2 mm. The visualized clavicles intact. There is a small bone island at the base of the coracoid process. Mild surrounding soft tissue swelling within the right shoulder. IMPRESSION: 1. Slightly comminuted and impacted right humeral neck fracture which extends into the greater tuberosity of the humeral head. 2. There is also a slightly depressed and slightly distracted fracture at the anterior inferior glenoid consistent with an osseous Bankart lesion. 3. No dislocation. Medications Administered Medications (Trade) Dose Ordered Sig/Juan David Route Start Time Stop Time Status Last Admin Dose Admin Fentanyl Citrate (Fentanyl Inj) 100 mcg NOW STAT IV 08/02/17 10:56 08/02/17 10:57 DC 08/02/17 11:06 100 MCG Fentanyl Citrate (Fentanyl Inj) 100 mcg NOW STAT IV 08/02/17 12:16 08/02/17 12:17 DC 08/02/17 12:36 100 MCG Hydromorphone HCl (Dilaudid Inj) 1 mg NOW STAT IV 08/02/17 13:36 08/02/17 13:38 DC 08/02/17 13:46 1 MG Medical Decision The patient presented status post mechanical fall with right upper arm injury. X-ray was unclear due to the patient's hesitation regarding movement of the arm. CT scan did show humeral neck fracture into the greater tuberosity as well as a displaced, distracted fracture of the anterior inferior glenoid. The patient has received 300 g of fentanyl total, 2 doses by me, one dose by EMS, as well as 1 mg of Dilaudid. Her pain has not been easily controlled, and she states the narcotic pain medications have not helped much. Patient does not feel comfortable going home and managing her pain, as she does live approximately one hour from the hospital. The pain finally let up when the arm is placed in a sling and she was given the Dilaudid. I did discuss the case with Beto Silva, who did speak with his attending. He states that the fracture is not surgical, and requested that if the patient needed to be admitted, with her comorbidities, that she be admitted under the medicine service. He said he would consult with the patient tomorrow. I spoke with Dr. Conde, who will accept the admission. Differential Diagnosis includes: Fracture, contusion, hemorrhage, dislocation, and others. Medication Reconcilliation Current Medication List: was personally reviewed by me Blood Pressure Screening Patient's blood pressure: Elevated blood pressure Blood pressure disposition: Elevated BP felt to be situational Impression Primary Impression: Fall Additional Impressions: Fracture of neck of humerus Glenoid fracture of shoulder Radial head fracture Departure Information Dispostion Admitted as an inpatient Condition GOOD Referrals Tal Van M.D. (PCP) Forms HOME CARE DOCUMENTATION FORM, IMPORTANT VISIT INFORMATION Patient Instructions My [facility] Health Problem Qualifiers Primary Impression: Fall Encounter type: initial encounter Qualified Codes: W19.XXXA - Unspecified fall, initial encounter Additional Impressions: Fracture of neck of humerus Encounter type: initial encounter Fracture type: closed Laterality: right Qualified Codes: S42.211A - Unspecified displaced fracture of surgical neck of right humerus, initial encounter for closed fracture Glenoid fracture of shoulder Encounter type: initial encounter Fracture type: closed Laterality: right Qualified Codes: S42.141A - Displaced fracture of glenoid cavity of scapula, right shoulder, initial encounter for closed fracture; S42.151A - Displaced fracture of neck of scapula, right shoulder, initial encounter for closed fracture Radial head fracture Encounter type: initial encounter Fracture type: closed Fracture alignment : nondisplaced Laterality: right Qualified Codes: S52.124A - Nondisplaced fracture of head of right radius, initial encounter for closed fracture
[2017-08-02] MEDS ORDERED: ALBUTEROL HFA 8 GM INHALER INH PRN (15:45)
[2017-08-02] MEDS ORDERED: MAGNESIUM HYDROXIDE SUSP 30 ML UDC PO PRN (15:45)
[2017-08-02] MEDS ORDERED: ACETAMINOPHEN 325 MG TAB PO PRN (15:45)
--- NOTE | 2017-08-02 15:52 | History and Physical ---
History & Physical Date & Time of Service: Aug 02, 2017 at 15:44 Chief Complaint: Arm Fracture Primary Care Physician: Tal Van M.D. History of Present Illness Source: patient 61 y/o F c/o R arm pain. Pt states she was having a usual day for herself when she slipped and fell in the mud while getting into her car. Pt was evaluated in the ED and found to have a R humeral fracture. Ortho was contacted by the ED physician and based upon imaging does not feel that pt will require OR. Pt was offered d/c to home, however she feels that her pain is too intense and she does not feel comfortable to d/c to home as she lives an hour away. Dilauded has helped somewhat, but pain is back to a 7/10 already. Pt denies fever, SOB, chest pain, abd pain, n/v/c/d, LE pain or swelling. Past Medical/Surgical History Medical Problems: (1) Adrenal Disorder Nec Status: Resolved (2) Celiac disease Status: Chronic (3) Diab Kelsy Wo Compl, Type Ii Or Unspec Type, Not Uncntrld Status: Chronic (4) Factor V disorder Status: Chronic (5) Heart disease Status: Chronic (6) HTN (hypertension) Status: Chronic (7) Lyme disease Status: Chronic (8) Pericarditis Status: Resolved (9) Pulmonary embolism Status: Chronic Surgical Problems: (1) H/O cardiac catheterization Status: Resolved (2) H/O total adrenalectomy Status: Resolved (3) History of hysterectomy Status: Resolved (4) Pacemaker Status: Resolved Family History Diabetes mellitus FH: cancer FH: gallbladder disease Hypertension Kidney disease Kidney stones Stroke Denies [place], CVA Social History Smoking Status: Never Smoker Alcohol Use: none Drug Use: none Marital Status: Housing status: lives with significant other Occupational Status: employed Multi-Drug Resistant Organisms History of MDRO: No Allergies Coded Allergies: Benzocaine (Verified Allergy, Unknown, water blisters, 08/02/17) Penicillins (Verified Allergy, Unknown, unknown, 08/02/17) Fenofibrate (Unverified Adverse Reaction, Unknown, diarrhea, 08/02/17) Morphine (Verified Adverse Reaction, Unknown, vomiting, 08/02/17) Home Medications Scheduled Atorvastatin (Lipitor), 40 MG PO DAILY Calcium Citrate (Angelo-Citrate), 600 MG PO TID Citalopram Hydrobromide (Celexa), 40 MG PO QPM Dulaglutide (Trulicity), 0.75 MG INJ WK Enalapril Maleate (Enalapril Maleate), 20 MG PO BID Fish Oil ([place]annister-3), 1 CAP PO DAILY Furosemide (Furosemide), 40 MG PO DAILY Insulin Aspart (Novolog), 30-45 UNITS SQ TID Insulin Glargine (Basaglar Kwikpen), 60 UNITS SQ QAM Insulin Glargine (Basaglar Kwikpen), 75 UNITS SQ QPM Magnesium (Magnesium), 500 MG PO DAILY Warfarin Sod (Jantoven), 5 MG PO DIRECTED Warfarin Sod (Jantoven), 10 MG PO DIRECTED Scheduled PRN Albuterol Hfa (Ventolin Hfa), 2 PUFFS INH Q4H PRN for SOB/Wheezing Physical Exam Vital Signs Date Time Temp Pulse Resp B/P (MAP) Pulse Ox O2 Delivery O2 Flow Rate FiO2 08/02/17 14:22 77 18 141/77 98 Room Air 08/02/17 13:46 93 Room Air 08/02/17 13:03 76 18 153/82 96 Room Air 08/02/17 12:01 73 18 144/76 93 Room Air 08/02/17 10:07 36.7 80 20 183/90 94 Room Air General Appearance: no apparent distress, + obese Head: normocephalic, atraumatic Eyes: normal inspection, EOMI ENT: hearing grossly normal Neck: supple Respiratory/Chest: normal breath sounds, no respiratory distress Cardiovascular: regular rate, rhythm, no edema Abdomen/GI: non tender, soft Extremities/Musculoskelatal: no calf tenderness, no pedal edema, + pertinent finding (R UE in sling) Neurologic/Psych: alert, normal mood/affect Skin: normal color, warm/dry Diagnostics Diagnostic Radiology Humeral XR: IMPRESSION: 1. Somewhat limited exam with the humeral shaft appear intact. 2. Degenerative change versus a fracture humeral head. 3. Potential linear nondisplaced hairline fracture radial head UE CT: IMPRESSION: 1. Slightly comminuted and impacted right humeral neck fracture which extends into the greater tuberosity of the humeral head. 2. There is also a slightly depressed and slightly distracted fracture at the anterior inferior glenoid consistent with an osseous Bankart lesion. 3. No dislocation. Impression Assessment and Plan 61 y/o F who was admitted for observation on 08/02 for uncontrolled pain s/p R humeral fx R humeral fx: non-operative per ortho Encouraged pt to try PO pain meds first, but dilaudid will be available if pain is ongoing Other management as per ortho, c/s pending DM: stable, continue home regimen Factor V with hx of PE: continue home coumadin dosing Pt states she rotates between 10, 10, 5mg. She is due for 10mg tonight, 5mg tomorrow, 10mg the next day Will continue coumadin given no OR status and with Factor V and hx of PE, pt is high risk for holding this medication HTN: continue home meds Labile in the setting of pain, monitor Level of Care Med/Surg Resuscitation Status FULL RESUSCITATION VTE Prophylaxis VTE Risk Assessment Done? Y/N: Yes Risk Level: Low
[2017-08-02] MEDS ORDERED: IV FLUIDS COMPLETED PRN (16:00)
[2017-08-02 18:17] VITALS: BP 150/70; PULSE 76; TEMP 36.7; O2SAT 91; Ht 170.2 cm; Wt 140.5 kg
[2017-08-02 18:20] VITALS: BP 150/80; PULSE 76; TEMP 36.7; O2SAT 91
[2017-08-02] MEDS ORDERED: GLUCOSE 10 TABS/TUBE PO PRN (18:30)
[2017-08-02] MEDS ORDERED: GLUCAGON FOR INJ 1 MG VIAL SQ PRN (18:30)
[2017-08-02] MEDS ORDERED: DEXTROSE 50% 50 ML SYR IV PRN (18:30)
[2017-08-02] MEDS ORDERED: GLUCOSE 40% GEL 15 GM TUBE PO PRN (18:30)
[2017-08-02 18:51] LABS: INR 2.2 (0.9-1.1); PROTHROMBIN TIME (PATIENT) 24.8 SECONDS (9.0-12.0)
[2017-08-02] MEDS: OXYCODONE/ACETAMINOPHEN 5-325 TAB PO PRN ×2 (18:55→23:28)
[2017-08-02] MEDS ORDERED: NURSING VERBAL MED ORDER ONE (19:00)
[2017-08-02] MEDS: TRULICITY~ORDER AWAITING ACTION SCH ×2 (20:20→23:29)
[2017-08-02] MEDS: INSULIN ASPART 100 UNITS/ML 3 ML PEN SQ SCH (20:23)
[2017-08-02] MEDS: WARFARIN SOD 10 MG TAB PO SCH (20:29)
[2017-08-02] MEDS: CITALOPRAM 40 MG TAB PO SCH (21:57)
[2017-08-02] MEDS: ENALAPRIL MALEATE 10 MG TAB PO SCH (21:57)
[2017-08-02] MEDS: INSULIN GLARGINE SQ SCH (22:06)
[2017-08-02 23:03] VITALS: BP 120/67; PULSE 74; TEMP 36.9; O2SAT 94
[2017-08-03] MEDS: HYDROmorphone INJ 0.5 MG/0.5 ML SYR IV PRN ×3 (02:36→20:49)
[2017-08-03] MEDS ORDERED: COUGH DROP (SUGAR FREE) LOZ 24 LOZ/1 BOX PO PRN (06:45)
[2017-08-03] MEDS ORDERED: NURSING DECISION MEDICATION ORDER SCH (06:45)
[2017-08-03 06:52] VITALS: BP 160/67; PULSE 88; TEMP 36.7; O2SAT 90
[2017-08-03 07:27] LABS: INR 2.3 (0.9-1.1)
[2017-08-03] MEDS: OXYCODONE/ACETAMINOPHEN 5-325 TAB PO PRN ×3 (07:31→17:56)
[2017-08-03] MEDS: TRULICITY~ORDER AWAITING ACTION SCH ×2 (08:00→16:00)
[2017-08-03] MEDS: MAGNESIUM OXIDE 400 MG TAB PO SCH (08:32)
[2017-08-03] MEDS: OMEGA-3 (PURIFIED FISH OIL) 1 GM CAP PO SCH (08:32)
[2017-08-03] MEDS: ATORVASTATIN 40 MG TAB PO SCH (08:32)
[2017-08-03] MEDS: CALCIUM CARBONATE 1250MG TAB PO SCH ×3 (08:32→17:09)
[2017-08-03] MEDS: FUROSEMIDE 20 MG TAB PO SCH (08:33)
[2017-08-03] MEDS: ENALAPRIL MALEATE 10 MG TAB PO SCH ×2 (08:34→20:50)
[2017-08-03] MEDS: INSULIN ASPART 100 UNITS/ML 3 ML PEN SQ SCH ×3 (08:42→18:39)
[2017-08-03] MEDS: INSULIN GLARGINE SQ SCH ×2 (08:43→21:44)
[2017-08-03] MEDS ORDERED: OXYC-57 PO ×2 (14:32→15:18)
--- NOTE | 2017-08-03 14:36 | Discharge Instructions ---
Discharge Instructions Date of Service Aug 03, 2017. Admission Reason for Admission: Fracture Of Neck Of Humerus Discharge Discharge Diagnosis / Problem: R Humerus Fracture Discharge Goals Goal(s): Decrease discomfort, Improve function, Increase independence Activity Recommendations Activity Limitations: as noted below Lifting Limitations: until after follow-up appointment Exercise/Sports Limitations: until after follow-up appointment Shower/Bathe: no limitations Driving or Machine Use: resume 3 days after discharge (do not drive when using pain medication) . Instructions / Follow-Up Instructions / Follow-Up Right Arm Fracture: - Continue to utilize the sling to support your arm. Avoid lifting objects with that arm - You will be provided pain medication and please take as prescribed. - Follow-up with orthopedics for further recommendations and monitoring. Current Hospital Diet Patient's current hospital diet: Diabetes Type 2 Diet, AHA Diet (Heart Healthy) , Gluten Free Diet Discharge Diet Recommended Diet: Diabetes Type 2 Diet, Gluten Free Diet Pending Studies Studies pending at discharge: no Laboratory Results Hemoglobin A1c Test 06/02/17 11:03 Range/Units Estimated Average Glucose 183 mg/dl Hemoglobin A1c 8.0 H 4.5-5.6 % Lipid Panel Test 07/14/17 09:54 Range/Units Triglycerides Level 218 H 0-150 mg/dl Cholesterol Level 133 0-200 mg/dl HDL Cholesterol 40 mg/dl Cholesterol/HDL Ratio 3.3 LDL Cholesterol, Calculated 49 mg/dl Medical Emergencies . Who to Call and When: Medical Emergencies: If at any time you feel your situation is an emergency, please call 911 immediately. . Non-Emergent Contact Non-Emergency issues call your: Primary Care Provider Call Non-Emergent contact if: you have a fever, your pain is concerning you, you have any medication questions . . "Provider Documentation" section prepared by Belinda Krishna. . VTE Core Measure Inpt VTE Proph given/why not?: [facility] Drug Monitoring Program Search Results: patient reviewed within database, no issues identified
[2017-08-03 15:15] VITALS: BP 128/58; PULSE 82; TEMP 36.7; O2SAT 91
[2017-08-03] MEDS: WARFARIN SOD 10 MG TAB PO SCH (17:09)
[2017-08-03 17:13] VITALS: O2SAT 90
--- NOTE | 2017-08-03 17:24 | Hospitalist Progress Note ---
Hospitalist Progress Note Date of Service Aug 03, 2017. (Belinda Krishna PA-C) Subjective Pt evaluation today including: conversation w/ patient, physical exam, chart review, lab review, review of studies, review of inpatient medication list Patient seen and evaluated. Still having pain that is helped by oral medications but still requiring additional IV dosing. Verbalizes no other needs or complaints. Will continue to adequately control her pain overnight. Plan for D/C in AM Constitutional: No fever, No chills Respiratory: No shortness of breath Cardiovascular: No chest pain Abdomen: No pain, No nausea, No vomiting Musculoskeletal: + joint pain (R arm) Female : No dysuria Heme: No abnormal bleeding/bruising (Belinda Krishna PA-C) Medications Current Inpatient Medications Medications (Trade) Dose Ordered Sig/Juan David Route Start Time Stop Time Status Last Admin Dose Admin Acetaminophen (Tylenol Tab) 650 mg Q4H PRN PO 08/02/17 15:45 09/01/17 15:44 Magnesium Hydroxide (Milk Of Magnesia Susp) 30 ml Q6H PRN PO 08/02/17 15:45 09/01/17 15:44 Ondansetron HCl (Zofran Inj) 4 mg Q6H PRN IV 08/02/17 15:45 09/01/17 15:44 Oxycodone/ Acetaminophen (Percocet 5-325mg Tab) 2 tab Q4H PRN PO 08/02/17 15:45 08/16/17 15:44 08/03/17 11:29 2 TAB Hydromorphone HCl (Dilaudid Inj) 0.5 mg Q4H PRN IV 08/02/17 15:45 08/16/17 15:44 08/03/17 13:14 0.5 MG Albuterol (Ventolin Hfa Inhaler) 2 puffs Q4H PRN INH 08/02/17 15:45 09/01/17 15:44 Atorvastatin Calcium (Lipitor Tab) 40 mg DAILY PO 08/03/17 09:00 09/02/17 08:59 08/03/17 08:32 40 MG Citalopram Hydrobromide (celeXA TAB) 40 mg QPM PO 08/02/17 21:00 09/01/17 20:59 9/12/17 21:57 40 MG Fish Oil ([place]-3 (Purified Fish Oil) Cap) 1 gm DAILY PO 08/03/17 09:00 09/02/17 08:59 08/03/17 08:32 1 GM Furosemide (Lasix Tab) 40 mg DAILY PO 08/03/17 09:00 09/02/17 08:59 08/03/17 08:33 40 MG Insulin Aspart (novoLOG ASPART) TIDM SQ 08/02/17 19:00 09/01/17 18:59 08/03/17 13:22 6 UNITS Insulin Glargine (Lantus Vial) 60 units QAM SQ 08/03/17 09:00 09/02/17 08:59 08/03/17 08:43 60 UNITS Insulin Glargine (Lantus Vial) 75 units QPM SQ 08/02/17 21:00 09/01/17 20:59 08/02/17 22:06 75 UNITS Calcium Carbonate (oS-Angelo 500 TAB) 1,250 mg TIDM PO 08/03/17 08:30 09/02/17 08:29 08/03/17 13:15 1,250 MG Miscellaneous Information (Order Awaiting Action) 1 ea QS N/A 08/02/17 18:30 09/01/17 18:29 Enalapril Maleate (Vasotec Tab) 20 mg BID PO 08/02/17 21:00 09/01/17 20:59 08/03/17 08:34 20 MG Magnesium Oxide (Mag-Ox Tab) 400 mg DAILY PO 08/03/17 09:00 09/02/17 08:59 08/03/17 08:32 400 MG Warfarin Sodium (Coumadin Tab) 10 mg DAILY@16 PO 08/02/17 19:30 09/01/17 19:29 08/02/17 20:29 10 MG Miscellaneous (Iv Fluids Completed) 1 ea PRN PRN N/A 08/02/17 16:00 08/02/18 15:59 Glucose (Glucose 40% Gel) 15-30 GRAMS 15 GRAMS... UD PRN PO 08/02/17 18:30 09/01/17 18:29 Glucose (Glucose Chew Tab) 4-8 Tablets 4 Tabl... UD PRN PO 08/02/17 18:30 09/01/17 18:29 Dextrose (Dextrose 50% 50ML Syringe) 25-50ML OF 50% DW IV FOR... UD PRN IV 08/02/17 18:30 09/01/17 18:29 Glucagon (Glucagon Inj) 1 mg UD PRN SQ 08/02/17 18:30 09/01/17 18:29 Menthol (Nice Meghan) 1 meghan PRN PRN PO 08/03/17 06:45 09/02/17 06:44 08/03/17 06:38 1 MEHGAN (Belinda Krishna PA-C) Objective Vital Signs Date Time Temp Pulse Resp B/P (MAP) Pulse Ox O2 Delivery O2 Flow Rate FiO2 08/03/17 15:15 36.7 82 18 128/58 (81) 91 Room Air 08/03/17 08:00 Room Air 08/03/17 06:52 36.7 88 18 160/67 (98) 90 Room Air 08/02/17 23:30 Room Air 08/02/17 23:03 36.9 74 16 120/67 (84) 94 Room Air 08/02/17 18:20 36.7 76 16 150/80 (103) 91 Room Air 08/02/17 18:17 36.7 76 18 150/70 91 Room Air 08/02/17 17:28 36.7 78 20 141/80 91 (Belinda Krishna, PA-C) Physical Exam General Appearance: WD/WN, no apparent distress Eyes: sclerae normal ENT: hearing grossly normal Neck: supple, no JVD, trachea midline Respiratory/Chest: lungs clear, normal breath sounds, no respiratory distress, no accessory muscle use Cardiovascular: regular rate, rhythm, no gallop, no murmur Abdomen: normal bowel sounds, non tender, soft Extremities: no pedal edema, no calf tenderness, + pertinent finding (R arm in sling; pulses 2+; cap refill immediate; motor function of hand/fingers intact) Neurologic/Psychiatric: alert, oriented x 3 Skin: normal color, warm/dry (Belinda Krishna, PA-C) Laboratory Results Last 24 Hours Test 08/02/17 18:05 08/02/17 18:26 08/02/17 20:57 08/03/17 06:32 Bedside Glucose 156 mg/dl 157 mg/dl Prothrombin Time 24.8 SECONDS 25.0 SECONDS Prothromb Time International Ratio 2.2 2.3 Test 08/03/17 08:06 08/03/17 12:18 Bedside Glucose 170 mg/dl 205 mg/dl (Belinda Krishna PA-C) Assessment and Plan 61 y/o F who was admitted for observation on 08/02 for uncontrolled pain s/p R humeral fx R Humeral Fx: Non-Operative - Pain management with Percocet with IV medication for breakthrough pain - encourage oral intake - Orthopedics following - recommendations appreciated and outpatient follow-up DM: stable, continue home regimen 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 Will continue coumadin given no OR status and with Factor V and hx of PE, pt is high risk for holding this medication HTN: Wax and Wanes - Continue Lasix and Enalapril Disposition: - Appreciate orthopedics recommendations and follow-up - Plan for D/C tomorrow morning Continued [facility] stay due to: multiple IV medications needed Discharge planning: home (Belinda Krishna PA-C) Reviewed: Pt Seen/Exam by Me (Scarlet Hou DO) History Ongoing pain control. Hesitant to leave hospital without seeing ortho due to distance between hospital and her home. Tolerating PO. Feels her breathing is a bit tight. She generally uses an inhaler at home and forgot to report this on admission. Agree with HPI/ROS as noted. (Scarlet Hou, ) General Appearance: no apparent distress, obese Respiratory: normal breath sounds, no respiratory distress Cardiovascular: normal peripheral pulses, regular rate, rhythm Gastrointestinal: non tender, soft Extremities: non-tender, no pedal edema Neurologic/Psychiatric: alert, oriented x 3 Skin Characteristics: normal color, warm/dry (Scarlet Hou DO) Assessment/Plan 61 y/o F who was admitted for observation on 08/02 for uncontrolled pain s/p R humeral fx R humeral fx: non-operative per ortho Encouraged pt to try PO pain meds first, but dilaudid will be available if pain is ongoing Other management as per ortho, c/s pending as ortho had several add-on cases today and could not see pt prior to family leaving for the night DM: stable, continue home regimen Factor V with hx of PE: continue home coumadin dosing HTN: continue home meds Labile in the setting of pain, monitor Add inhaler (Scarlet Hou, DO)
[2017-08-03] MEDS: ONDANSETRON INJ 2 MG/ML 2 ML VIAL IV PRN (20:49)
[2017-08-03] MEDS: CITALOPRAM 40 MG TAB PO SCH (20:50)
[2017-08-03 20:54] VITALS: BP 132/65; PULSE 82
[2017-08-03 23:14] VITALS: BP 145/78; PULSE 87; TEMP 37.2; O2SAT 92
[2017-08-04] VITALS (7 sets, daily range): BP systolic 115–171; BP diastolic 61–81; PULSE 83–85; TEMP 36.9–37.4; O2SAT 82–98
--- NOTE | 2017-08-04 00:55 | ORTHOPEDIC CONSULTATION ---
DATE OF CONSULTATION: 08/03/2017 HISTORY OF PRESENT ILLNESS: The patient is a 61-year-old female, who slipped and fell and injured her right humerus. She is admitted for pain control. She has multiple medical problems, including adrenal disorder, celiac disease, diabetes, factor V disorder, heart disease, hypertension, Lyme disease, pericarditis, pulmonary embolism, history of cardiac catheterization, total duodenectomy, hysterectomy, pacemaker, bilateral carpal tunnel surgery. MEDICATIONS: Multiple medicines including insulin, furosemide, enalapril, Trulicity, Celexa calcium citrate, Lipitor, magnesium and warfarin. She also has Ventolin p.r.n. PHYSICAL EXAMINATION: GENERAL: Demonstrates she is morbidly obese. EXTREMITIES: The right shoulder does not have any present ecchymosis. Does have some swelling, no major deformity. NEUROLOGICAL: Distal neurological exam is intact. She is in a sling. IMAGING DATA: X-rays demonstrate a proximal humerus fracture with a valgus impacted humeral articular surface that goes into the femoral neck type fracture, but has some fracturing of the greater tuberosity and lesser tuberosity without significant displacement on plain films. On the CT scan, there is a comminution of the greater tuberosity in 2 fragments, a fracture of the lesser tuberosity neck fracture that extends up into the tuberosities and with some valgus impaction of that fracture and also a minimally displaced, comminuted, anterior glenoid fracture. The elbow had a questionable nondisplaced hairline fracture of the radius, which was felt likely not to be true fracture based on clinical evaluation. ASSESSMENT: Complex humerus and glenoid fracture of the shoulder and possible radial head fracture. With regard to the radial head fracture, this will be treated in a sling with early range of motion, so it would not affect any of our treatment for that with the treatment plan for the shoulder. In regards to the shoulder, she has a very complex fracture. To try to go in, and then do an ORIF may result in inability to anatomically reduce the fracture due to significant comminution requiring replacement surgery and this replacement surgery could be compromised by the comminuted glenoid fracture and fixation there could be compromised. Due to this fact and the fact that she has multiple medical problems including a pacemaker, and on anticoagulation, she is very high risk for any surgery, so the best treatment at this time would be to treat her in a sling immobilizer. She is in a standard sling at this time, but the sling with a swathe around her belly will be helpful, but her belly is quite large and this may not be feasible, but may give her more stability if it is able to get the appropriate size sling for her. Other than that, I would have her just be in immobilized. She can take her arm out of the sling to dress and bath only, but keep her arm at the side. She can extend and flex her elbow periodically to prevent elbow stiffness as comfort allows with the humerus at the side only. She can do no weightbearing with that extremity. She can do no lifting with that extremity. PLAN: Will be to check x-rays on a weekly basis and if there is significant displacement, then surgical treatment could be considered. At this time, I am going to recommend conservative management. I would recommend she come back to my clinic 1 week from Tuesday, at which time, we will obtain x-rays. Otherwise, she can be discharged on Percocet for pain and would hold off on OxyContin or any other medication due to potential respiratory issues. Thank you for this consultation. FRANKLIN
[2017-08-04] MEDS: OXYCODONE/ACETAMINOPHEN 5-325 TAB PO PRN (07:41)
[2017-08-04] MEDS: TRULICITY~ORDER AWAITING ACTION SCH ×3 (08:00→16:00)
[2017-08-04] MEDS: ATORVASTATIN 40 MG TAB PO SCH (10:37)
[2017-08-04] MEDS: ENALAPRIL MALEATE 10 MG TAB PO SCH ×2 (10:37→20:18)
[2017-08-04] MEDS: OMEGA-3 (PURIFIED FISH OIL) 1 GM CAP PO SCH (10:38)
[2017-08-04] MEDS: CALCIUM CARBONATE 1250MG TAB PO SCH ×3 (10:39→17:55)
[2017-08-04] MEDS: FUROSEMIDE 20 MG TAB PO SCH (10:40)
[2017-08-04] MEDS: MAGNESIUM OXIDE 400 MG TAB PO SCH (10:40)
[2017-08-04] MEDS: INSULIN ASPART 100 UNITS/ML 3 ML PEN SQ SCH ×3 (10:45→18:46)
[2017-08-04] MEDS: INSULIN GLARGINE SQ SCH ×2 (10:46→21:35)
[2017-08-04] MEDS: ONDANSETRON INJ 2 MG/ML 2 ML VIAL IV PRN (10:47)
[2017-08-04] MEDS: HYDROmorphone INJ 0.5 MG/0.5 ML SYR IV PRN (10:47)
--- NOTE | 2017-08-04 16:24 | Hospitalist Progress Note ---
Hospitalist Progress Note Date of Service Aug 04, 2017. (Belinda Krishna, ISHANC) Subjective Pt evaluation today including: conversation w/ patient, physical exam, chart review, lab review, review of studies, review of inpatient medication list Patient seen and evaluated. Reporting better control on pain but reporting feeling stiff and hurting all over. Orthopedics planning for weekly XR and conservative treatment at this time. Will obtain PT/OT evaluations given patients fear of limited functionality. Is to remain non-weightbearing and no lifting with R arm. Will adjust medication and emphasize oral medication and D/C Dilaudid Constitutional: No fever, No chills Respiratory: No shortness of breath Cardiovascular: No chest pain Abdomen: + nausea, No pain, No vomiting, No diarrhea, No constipation Musculoskeletal: + joint pain (R shoulder) Female : No dysuria (Belinda Krishna, ISHANC) Medications Current Inpatient Medications Medications (Trade) Dose Ordered Sig/Juan David Route Start Time Stop Time Status Last Admin Dose Admin Acetaminophen (Tylenol Tab) 650 mg Q4H PRN PO 08/02/17 15:45 09/01/17 15:44 Magnesium Hydroxide (Milk Of Magnesia Susp) 30 ml Q6H PRN PO 08/02/17 15:45 09/01/17 15:44 Ondansetron HCl (Zofran Inj) 4 mg Q6H PRN IV 08/02/17 15:45 09/01/17 15:44 08/04/17 10:47 4 MG Albuterol (Ventolin Hfa Inhaler) 2 puffs Q4H PRN INH 08/02/17 15:45 09/01/17 15:44 08/03/17 17:08 2 PUFFS Atorvastatin Calcium (Lipitor Tab) 40 mg DAILY PO 08/03/17 09:00 09/02/17 08:59 08/04/17 10:37 40 MG Citalopram Hydrobromide (celeXA TAB) 40 mg QPM PO 08/02/17 21:00 09/01/17 20:59 08/03/17 20:50 40 MG Fish Oil ([place]-3 (Purified Fish Oil) Cap) 1 gm DAILY PO 08/03/17 09:00 09/02/17 08:59 08/04/17 10:38 1 GM Furosemide (Lasix Tab) 40 mg DAILY PO 08/03/17 09:00 09/02/17 08:59 08/04/17 10:40 40 MG Insulin Aspart (novoLOG ASPART) TIDM SQ 08/02/17 19:00 09/01/17 18:59 08/04/17 13:23 2 UNITS Insulin Glargine (Lantus Vial) 60 units QAM SQ 08/03/17 09:00 09/02/17 08:59 08/04/17 10:46 60 UNITS Insulin Glargine (Lantus Vial) 75 units QPM SQ 08/02/17 21:00 09/01/17 20:59 08/03/17 21:44 75 UNITS Calcium Carbonate (oS-Angelo 500 TAB) 1,250 mg TIDM PO 08/03/17 08:30 09/02/17 08:29 08/04/17 13:24 1,250 MG Miscellaneous Information (Order Awaiting Action) 1 ea QS N/A 08/02/17 18:30 09/01/17 18:29 Enalapril Maleate (Vasotec Tab) 20 mg BID PO 08/02/17 21:00 09/01/17 20:59 08/04/17 10:37 20 MG Magnesium Oxide (Mag-Ox Tab) 400 mg DAILY PO 08/03/17 09:00 09/02/17 08:59 08/04/17 10:40 400 MG Miscellaneous (Iv Fluids Completed) 1 ea PRN PRN N/A 08/02/17 16:00 08/02/18 15:59 Glucose (Glucose 40% Gel) 15-30 GRAMS 15 GRAMS... UD PRN PO 08/02/17 18:30 09/01/17 18:29 Glucose (Glucose Chew Tab) 4-8 Tablets 4 Tabl... UD PRN PO 08/02/17 18:30 09/01/17 18:29 Dextrose (Dextrose 50% 50ML Syringe) 25-50ML OF 50% DW IV FOR... UD PRN IV 08/02/17 18:30 09/01/17 18:29 Glucagon (Glucagon Inj) 1 mg UD PRN SQ 08/02/17 18:30 09/01/17 18:29 Menthol (Nice Meghan) 1 meghan PRN PRN PO 08/03/17 06:45 09/02/17 06:44 08/03/17 06:38 1 MEGHAN Warfarin Sodium (Coumadin Tab) 5 mg DAILY@16 PO 08/04/17 16:00 08/05/17 16:30 Oxycodone/ Acetaminophen (Percocet 5-325mg Tab) 3 tab Q4H PRN PO 08/04/17 19:45 08/16/17 15:44 UNV (Belinda Krishna PA-C) Objective Vital Signs Date Time Temp Pulse Resp B/P (MAP) Pulse Ox O2 Delivery O2 Flow Rate FiO2 08/04/17 15:44 37.1 84 18 130/67 (88) 96 Nasal Cannula 3.0 08/04/17 07:30 Room Air 08/04/17 06:56 36.9 85 17 131/72 (91) 98 Room Air 08/03/17 23:14 37.2 87 18 145/78 (100) 92 Nasal Cannula 2.0 08/03/17 20:54 82 132/65 (87) 08/03/17 20:27 Room Air 2.0 Nasal Cannula 08/03/17 17:13 90 Room Air (Belinda Krishna, PA-C) Physical Exam General Appearance: WD/WN, no apparent distress, + obese Eyes: sclerae normal ENT: hearing grossly normal Respiratory/Chest: lungs clear, normal breath sounds, no respiratory distress, no accessory muscle use Cardiovascular: regular rate, rhythm, no gallop, no murmur Abdomen: normal bowel sounds, non tender, soft Extremities: + pertinent finding (pulses 2+; motor function intact; sensation intact; cap refill immediate in RUE) Neurologic/Psychiatric: alert, oriented x 3 Skin: normal color, warm/dry (Belinda Krishna, ANTONIA-C) Laboratory Results Last 24 Hours Test 08/03/17 17:09 08/03/17 21:01 08/04/17 07:56 Bedside Glucose 135 mg/dl 206 mg/dl 188 mg/dl (Belinda Krishna PA-C) Assessment and Plan 61 y/o F who was admitted for observation on 08/02 for uncontrolled pain s/p R humeral fx R Humeral Fx: Non-Operative - Pain management with Percocet - will increase to Percocet 15 mg PRN - Orthopedics following - recommending conservative therapy with weekly XR - wants to follow up TuesdayAug 12 with XR DM: stable, continue home regimen 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 -- Did get 10 mg yesterday instead of 5 mg - to compensate she will get 5 mg today and would be due for 5 mg tomorrow (08/05) and resume normal rotation HTN: Wax and Wanes - Continue Lasix and Enalapril Disposition: - Await PT/OT evaluations - Likely D/C tomorrow with outpatient services - will need Rx Continued [facility] stay due to: inadequate oral pain control Discharge planning: home (Belinda Krishna, PA-C) I examined patient. Physical Exam General Appearance: WD/WN, no apparent distress, + obese Eyes: sclerae normal ENT: hearing grossly normal Respiratory/Chest: lungs clear, normal breath sounds, no respiratory distress, no accessory muscle use Cardiovascular: regular rate, rhythm, no gallop, no murmur Abdomen: normal bowel sounds, non tender, soft Extremities: + pertinent finding (pulses 2+; motor function intact; sensation intact; cap refill immediate in RUE) Neurologic/Psychiatric: alert, oriented x 3 Skin: normal color, warm/dry I agree with analysis and plan after reviewing case with [facility]. (Saran Hernandez M.D.)
[2017-08-04] MEDS: WARFARIN SOD 5 MG TAB PO SCH (17:55)
[2017-08-04] MEDS: CITALOPRAM 40 MG TAB PO SCH (20:17)
[2017-08-04] MEDS: OXYCODONE HCL IR 5 MG TAB (IMMEDIATE RELEASE) PO PRN (20:21)
[2017-08-05] VITALS: O2SAT 93
[2017-08-05] MEDS: TRULICITY~ORDER AWAITING ACTION SCH ×3 (07:29→17:53)
[2017-08-05 07:30] VITALS: BP 133/66; PULSE 68; TEMP 36.7; O2SAT 100
[2017-08-05] MEDS: ENALAPRIL MALEATE 10 MG TAB PO SCH (09:12)
[2017-08-05] MEDS: MAGNESIUM OXIDE 400 MG TAB PO SCH (09:12)
[2017-08-05] MEDS: ATORVASTATIN 40 MG TAB PO SCH (09:12)
[2017-08-05] MEDS: CALCIUM CARBONATE 1250MG TAB PO SCH ×3 (09:13→17:45)
[2017-08-05] MEDS: OMEGA-3 (PURIFIED FISH OIL) 1 GM CAP PO SCH (09:13)
[2017-08-05] MEDS: FUROSEMIDE 20 MG TAB PO SCH (09:13)
[2017-08-05] MEDS: INSULIN ASPART 100 UNITS/ML 3 ML PEN SQ SCH ×3 (09:18→18:40)
[2017-08-05] MEDS: INSULIN GLARGINE SQ SCH (09:18)
[2017-08-05] MEDS: OXYCODONE HCL IR 5 MG TAB (IMMEDIATE RELEASE) PO PRN ×2 (13:02→17:53)
[2017-08-05 15:40] VITALS: BP 146/65; PULSE 87; TEMP 36.8; O2SAT 92
[2017-08-05] MEDS: WARFARIN SOD 5 MG TAB PO SCH (16:03)
[2017-08-05 16:30] VITALS: O2SAT 92
--- NOTE | 2017-08-05 16:51 | Discharge Instructions ---
Discharge Instructions Date of Service Aug 05, 2017. Admission Reason for Admission: Fracture Of Neck Of Humerus Discharge Discharge Diagnosis / Problem: Fracture of neck of humerus Discharge Goals Goal(s): Decrease discomfort, Improve function Activity Recommendations Activity Limitations: per Instructions/Follow-up section Lifting Limitations: none (right arm in sling), no more than 5 pounds Exercise/Sports Limitations: none May Resume Sexual Activity: when tolerated Shower/Bathe: no limitations KEEP RIGHT ARM IN SLING; OK TO REMOVE FOR SHOWERING. KEEP IT DRY. If arm becomes irritated ok to use baby powder . Instructions / Follow-Up Instructions / Follow-Up at 1:20pm with Prakash at [facility] Tuesday at 11:00 with PCP Current Hospital Diet Patient's current hospital diet: Diabetes Type 2 Diet, AHA Diet (Heart Healthy) , Gluten Free Diet Discharge Diet Recommended Diet: AHA Diet (Heart Healthy), Low Sodium Diet (2gm Na) Pending Studies Studies pending at discharge: no Laboratory Results Hemoglobin A1c Test 06/02/17 11:03 Range/Units Estimated Average Glucose 183 mg/dl Hemoglobin A1c 8.0 H 4.5-5.6 % Lipid Panel Test 07/14/17 09:54 Range/Units Triglycerides Level 218 H 0-150 mg/dl Cholesterol Level 133 0-200 mg/dl HDL Cholesterol 40 mg/dl Cholesterol/HDL Ratio 3.3 LDL Cholesterol, Calculated 49 mg/dl Medical Emergencies . Who to Call and When: Medical Emergencies: If at any time you feel your situation is an emergency, please call 911 immediately. . Non-Emergent Contact Non-Emergency issues call your: Primary Care Provider Call Non-Emergent contact if: your pain is not controlled . Past History Medical & Surgical History: (1) Glenoid fracture of shoulder (2) Fracture of neck of humerus (3) HTN (hypertension) (4) Diab Kelsy Wo Compl, Type Ii Or Unspec Type, Not Uncntrld . "Provider Documentation" section prepared by Saran Hernandez. . VTE Core Measure Inpt VTE Proph given/why not?: Ryan [facility]NIGHT Drug Monitoring Program Search Results: no issues identified Drug Monitoring Findings: will prescribe 21 tabs of tramadol 50 mg po qhprn for moderate pain oxycodone 15 mg PO Q6HPRN FOR SEVERE PAIN 21 TABS
[2017-08-05 17:55] VITALS: BP 146/65; PULSE 87; TEMP 36.8; O2SAT 92
--- NOTE | 2017-08-05 22:43 | Discharge Summary ---
Discharge Summary Date of Service Aug 05, 2017. Discharge Summary Admission Date: Aug 02, 2017 at 15:43 Discharge Date: Aug 04, 2017 Discharge Disposition: Home Principal Diagnosis: R humeral fracture Medication Reconciliation Continued Medications: Albuterol Hfa (Ventolin Hfa) 200 Puffs/85609 Mcg Aers 2 PUFFS INH Q4H PRN for SOB/Wheezing, #1 INHALER Atorvastatin (Lipitor) 40 Mg Tab 40 MG PO DAILY, TAB Calcium Citrate (Angelo-Citrate) 150 Mg Cap 600 MG PO TID Citalopram Hydrobromide (Celexa) 40 Mg Tab 40 MG PO QPM, TAB Dulaglutide (Trulicity) 0.75 Mg/0.5 Ml Inj 0.75 MG INJ WK, #2 Enalapril Maleate (Enalapril Maleate) 20 Mg Tab 20 MG PO BID, #60 Fish Oil ([place]-3) 1 Ea Cap 1 CAP PO DAILY, CAP Furosemide (Furosemide) 20 Mg Tab 40 MG PO DAILY, #60 Insulin Aspart (Novolog) 100 Units/Ml Inj 30-45 UNITS SQ TID, #50 35 UNITS IN AM, 40 UNITS AT NOON, AND 45 UNITS IN THE EVENING Insulin Glargine (Basaglar Kwikpen) 100 Unit/Ml Inj 60 UNITS SQ QAM, #45 Insulin Glargine (Basaglar Kwikpen) 100 Unit/Ml Inj 75 UNITS SQ QPM Magnesium (Magnesium) 500 Mg Tab 500 MG PO DAILY Warfarin Sod (Jantoven) 5 Mg Tab 5 MG PO DIRECTED, TAB Discontinued Medications: Warfarin Sod (Jantoven) 10 Mg Tab 10 MG PO DIRECTED, TAB TAKE 10MG TWO DAYS IN A ROW, THEN 5MG AND REPEAT Discharge Exam Review of Systems: Constitutional: No fever, No chills ENT: No hearing loss, No unusual epistaxis Respiratory: No cough, No sputum, No wheezing Cardiovascular: No chest pain, No orthopnea, No PND Abdomen: No pain Musculoskeletal: + joint pain, + muscle pain Genitourinary - Female: No dysuria, No urinary frequency, No urinary urgency Neurologic: No memory loss Endocrine: No fatigue, No excessive thirst Hematologic / Lymphatic: No abnormal bleeding/bruising, No clotting problems Integumentary: No rash, No itch Physical Exam: General Appearance: WD/WN, no apparent distress Neck: supple, no adenopathy Respiratory/Chest: chest non-tender, lungs clear, normal breath sounds Cardiovascular: regular rate, rhythm, no edema, no gallop, no JVD Abdomen / GI: normal bowel sounds, non tender, soft, no organomegaly Extremities: normal inspection, no calf tenderness Skin: normal color, warm/dry Hospital Course 61 y/o F c/o R arm pain. Pt states she was having a usual day for herself when she slipped and fell in the mud while getting into her car. Pt was evaluated in the ED and found to have a R humeral fracture. Ortho was contacted by the ED physician and based upon imaging does not feel that pt will require OR. Pt was offered d/c to home, however she feels that her pain is too intense and she does not feel comfortable to d/c to home as she [place] hour away. Dilaudid has helped somewhat, but pain is back to a 7/10 already. Pt denies fever, SOB, chest pain, abd pain, n/v/c/d, LE pain or swelling. Hospital Course After controlling her medication by oral pain medication, patient was discharged home. She had no complications during this hospital stay. Patient will f/u with ortho as an outpatient. Fractire care instructions were given to patient by ortho. Total Time Spent: Greater than 30 minutes This includes examination of the patient, discharge planning, medication reconciliation, and communication with other providers. Discharge Instructions Please refer to the electronic Patient Visit Report (Discharge Instructions) for additional information. Follow-Up F/U with ortho in one week F/U with PCP within next 2 weeks.
== END 2017-08-05 20:23 | disposition home or self-care (01) ==
LOC: EDBD 09:50 → C.EDB 09:52 → C.MSW 15:43 → ENRESERV 16:03
PROVIDERS: ADMIT Family Medicine; ATTEND Family Medicine
DX: S42.211A Unspecified displaced fracture of surgical neck of right humerus, initial encounter for closed fracture (principal); S42.141A Displaced fracture of glenoid cavity of scapula, right shoulder, initial encounter for closed fracture; S42.151A Displaced fracture of neck of scapula, right shoulder, initial encounter for closed fracture; S52.124A Nondisplaced fracture of head of right radius, initial encounter for closed fracture; W01.0XXA Fall on same level from slipping, tripping and stumbling without subsequent striking against object, initial encounter; G89.21 Chronic pain due to trauma; Z79.01 Long term (current) use of anticoagulants; Z79.4 Long term (current) use of insulin; Z79.899 Other long term (current) drug therapy; A69.20 Lyme disease, unspecified; K90.0 Celiac disease; D68.51 Activated protein C resistance; Z86.711 Personal history of pulmonary embolism

== ENCOUNTER → 2018-03-23 | Outpatient (CLI) | payer OTHER ==
[~2018-03-23] MED LIST changes: -ALBUAER2 INH; -TRAM-10 PO; +VNTHFA/IN INH; -WARF10TA4 PO
--- NOTE | 2018-03-23 16:42 | DIAGNOSTIC IMAGING REPORT ---
CT SCAN OF THE ABDOMEN AND PELVIS WITHOUT IV CONTRAST CLINICAL HISTORY: Right lower quadrant abdominal pain. COMPARISON STUDY: Abdominal CT dated 08/16/2016. TECHNIQUE: CT scan of the abdomen and pelvis is performed from the lung bases to the proximal femora. Images are reviewed in the axial, sagittal, and coronal planes. IV contrast was not administered for this examination as per the referring clinician. Note that the examination was performed in suboptimal fashion without IV contrast. Oral contrast was utilized. The examination is degraded by large body habitus, and streak artifact from the body wall abutting the CT gantry. A dose lowering technique was utilized adhering to the principles of ALARA. CT DOSE: 1830.11 mGy.cm FINDINGS: Lung bases: The heart is top normal in size and without pericardial effusion. Pacemaker leads are observed. There is a small hiatal hernia. Hyperdense pleural thickening is seen at the right lung base and suggests previous pleurodesis. No airspace consolidation or pleural effusion is identified. Suture material is noted at the anterior right lung base. Liver: The unenhanced liver is enlarged and steatotic. Nodularity of the hepatic surface contour suggests early change of cirrhosis. There is no intrahepatic biliary ductal dilatation. 9 mm cyst is noted in the left lobe. Gallbladder: Unremarkable. Spleen: Normal in size and attenuation. Pancreas: The unenhanced pancreas is mildly atrophic and grossly unremarkable. Adrenal glands: Unremarkable. Kidneys: The unenhanced kidneys are atrophic and without hydronephrosis. There are no renal calculi identified. A 4.2 cm cyst is noted in the right kidney. Abdominal vasculature: The abdominal aorta is normal in course and caliber noting moderate to advanced atherosclerotic calcification. Bowel: There is mild colonic diverticulosis without CT evidence of acute diverticulitis. No bowel obstruction is seen. There is laxity of the ventral abdominal wall with protrusion of abdominal contents. The appendix is well-visualized and normal. Peritoneum: There is no intraperitoneal free air or abdominal ascites. Lymphadenopathy: None. Pelvic viscera: The bladder is normal as visualized. The uterus is atrophic versus surgically absent. No adnexal lesion is seen. Skeletal structures: The skeletal structures are osteopenic. Advanced lumbosacral spondylosis is observed. A minimal superior end a compression deformity is suggested in L2. Findings suggest previous hemilaminectomy in the lower lumbar spine. No lytic or blastic lesions are seen. IMPRESSION: 1. There are no acute infectious or inflammatory findings in the abdomen or pelvis. 2. Mild colonic diverticulosis without CT evidence of acute diverticulitis. 3. Hyperdense pleural thickening and nodularity at the right lung base suggests previous pleurodesis. Clinical correlation will be required. 4. The liver is enlarged and steatotic. Nodularity of the hepatic surface contour suggests early change of cirrhosis. 5. Additional findings as above. Electronically signed by: Eron Modi M.D. 03/23/2018 4:41 PM Dictated Date/Time: 03/23/2018 4:33 PM
== END | disposition home or self-care (01) ==
LOC: C.CTS 15:51
PROVIDERS: ATTEND Family Medicine Adult Medicine
DX: R10.31 Right lower quadrant pain (principal); K57.92 Diverticulitis of intestine, part unspecified, without perforation or abscess without bleeding; R16.0 Hepatomegaly, not elsewhere classified; K76.0 Fatty (change of) liver, not elsewhere classified

== ENCOUNTER → 2018-04-07 | Outpatient (CLI) | payer OTHER ==
--- NOTE | 2018-04-07 10:11 | DIAGNOSTIC IMAGING REPORT ---
RIBS BILATERAL WITH PA CHEST CLINICAL HISTORY: 62 years-old Female presenting with R10.9 Right flank pain, right-sided flank pain, possible muscle spasm. TECHNIQUE: Frontal and oblique views of the bilateral ribs as well as PA view of the chest were obtained. COMPARISON: Chest x-ray from 10/05/2016. FINDINGS: Left subclavian pacer with leads to the right atrium and right ventricular apex. Atherosclerosis of the aortic arch. Cardiac silhouette mildly enlarged, unchanged. Prominence of pulmonary vasculature. No focal opacity. Blunting of the right costophrenic angle with pleural thickening on the right is unchanged. No large pneumothorax or pleural effusion. Degenerative changes of the spine. Surgical clip projects over the epigastrium. No displaced rib fracture. IMPRESSION: 1. Chronic pleural thickening on the right, unchanged. 2. No acute cardiopulmonary disease. 3. No displaced rib fracture. 4. Mild cardiomegaly. Electronically signed by: Tal Bal M.D. 04/07/2018 10:10 AM Dictated Date/Time: 04/07/2018 10:07 AM
== END | disposition home or self-care (01) ==
LOC: C.RADBC 09:48
PROVIDERS: ATTEND Nurse Practitioner Adult Health
DX: R10.9 Unspecified abdominal pain (principal); J92.9 Pleural plaque without asbestos; I51.7 Cardiomegaly

== ENCOUNTER → 2018-06-09 | Outpatient (CLI) | payer OTHER ==
[~2018-06-09] MED LIST changes: +BECL80AE7 INH; +ENOX1INJ11 SC; +FLUT1INH5 INH; +INSU100I SQ; +MAGN400T6 PO; -MAGN500T15 PO; -NVLG SQ
--- NOTE | 2018-06-10 06:27 | SPLIT NIGHT TECHNICIAN REPORT ---
[facility] Split Night Polysomnogram - Preschool Teacher Report Study date: 06/09/2018 Referring Physician: Dr. Darren Van Name: ANDREWURIEL MCPHERSON Preschool Teacher: KRISTIE Zepeda. Date of : 1955 Height: 62 years, Height 5' 7" Sex: Female Weight: 305 lbs Age: 62 Neck Circum:20.75in. BMI: Medications: 47.76 Warfarin 10mg, Budesonide 0.25mg/2ml, Qvar 80mcg/act, Ventolin , Citalopram 40mg, Basaglar Kwil Pen 100unit/ml, Humalog 100unit/ml, Trulicity 0.75mg/0.5ml, Enalapril 20mg, Furosemide 40mg, Lipitor 40mg, Warfarin 5mg Patient History Study started on room air with no ETCO2 monitoring in room #6. 62 yr old female here tonight for a possible split night study per protocol. She has a history of severe DAVID, HTN, diabetes and obesity. Her ESS=12/24. Neck circ=20.75inches Parameters Monitored NPSG: E1-M2, E2-M1, Fp1-M2, Fp2-M1, F3-M2, F4-M2, F4-M1, C3-M2, C4-M2, C4-M1, O1-M2, O2-M2, O2-M1, T3-M2, T4-M1, P3-M2, P4-M1, CHIN1, CHIN2, HR, EKG, Legs, PFLOW, SNOR, FLOW, CFLOW, Tidal Volume, THOR, ABDO, SpO2, PLTH, CPRESS, ETCO2 Wave, ETCO2, pH SLEEP SUMMARY DATA DIAGNOSTIC TREATMENT Lights Out: 10:16:09 PM 12:30:39 AM Lights On: 12:17:39 AM 6:04:09 AM Total Recording Time (TRT): 121.5 min. 333.5 min. Total Sleep Time (TST): 89.0 min. 288.0 min. NREM Time: 89.0 min. 243.0 min. REM Time: 0.0 min. 45.0 min. Sleep Period Time (SPT): 92.0 min. 299.5 min. Sleep Efficiency (SE): 73 % 86 % Sleep Latency: 29.5 min. 34.0 min. Arousal Index: 31.7 5.6 PAP Treatment Levels: 4, 6, 8, 10, 12, 14 * Optimal Pressure(s) SLEEP STAGING DATA DIAGNOSTIC TREATMENT Duration (min) TST % Duration (min) TST % Stage Wake: 32.5 min. -- 45.5 min. -- WASO: 3.0 min. -- 11.5 min. -- NREM: 89.0 min. 100 % 243.0 min. 84 % Stage N1: 10.5 min. 12 % 4.0 min. 1 % Stage N2: 78.5 min. 88 % 148.0 min. 51 % Stage N3: 0.0 min. 0 % 91.0 min. 32 % REM: 0.0 min. 0 % 45.0 min. 16 % POSITIONAL DATA Event Count Index Event Count Index Supine: N/A N/A N/A N/A Supine NREM: N/A N/A N/A N/A Supine REM: N/A N/A N/A N/A Non-Supine: 94 62.7 59 11.9 Non-Supine NREM: 94 62.7 58 13.8 Non-Supine REM: N/A N/A 1 1.3 AROUSAL SUMMARY DATA: Event Count Index Event Count Index Apnea Arousals: 3 2.0 3 1.7 Hypopnea Arousals: 22 14.8 11 2.3 Snore Arousals: 10 6.7 4 0.8 PLM Arousals: 4 2.7 2 0.4 Non-Specific Arousals: 11 7.4 4 0.8 Total Arousals: 47 31.7 27 5.6 MYOCLONUS (PLM) Event Count Index Event Count Index PLM: 72 48.5 71 14.8 PLM AROUSAL: 4 2.7 2 0.4 PLM W/O AROUSAL 72 48.5 69 14.4 PLM W/RESP EVENT 11 0.0 0 0.0 MYOCLONUS (PLM) Event Count Index Event Count Index LM: 1 14.8 34 7.1 LM AROUSAL: 1 0.7 1 0.2 LM W/O AROUSAL LM W/RESP EVENT LM NON SPECIFIC 67 45.2 89 18.5 HEART RATE DATA DIAGNOSTIC TREATMENT Sleep (bpm): 68 60 REM (bpm): N/A 95 NREM (bpm): 91 93 Tachycardia Count: 0 0 Tachycardia Duration: 0.00 0 Bradycardia Count: 0 0 Bradycardia Duration: 0.00 0 DIAGNOSTIC PORTION TREATMENT PORTION RESPIRATORY DATA Event Count Index Event Count Index AHI: -- 62.7 -- 11.9 RDI: -- 63.4 -- 12 Obstructive Apnea: 3 2.0 7 1.5 Central Apnea: 0 0.0 1 0.2 Mixed Apnea: 0 0.0 0 0.0 Hypopnea: 90 60.7 49 10.2 RERA: 1 0.7 2 0.4 Total Apneas: 3 2.0 8 1.7 RESPIRATORY DATA REM NREM SLEEP REM NREM SLEEP Supine Position: Obstructive Apneas: N/A N/A N/A N/A N/A N/A Central Apneas: N/A N/A N/A N/A N/A N/A Mixed Apneas: N/A N/A N/A N/A N/A N/A Hypopneas: N/A N/A N/A N/A N/A N/A RERA N/A N/A N/A N/A N/A N/A Total Supine Events: N/A N/A N/A N/A N/A N/A Supine AHI: N/A N/A N/A N/A N/A N/A Supine RDI: N/A N/A N/A N/A N/A N/A REM NREM SLEEP REM NREM SLEEP Non-Supine Position: Obstructive Apneas: N/A 3 3 0 7 7 Central Apneas: N/A 0 0 1 0 1 Mixed Apneas: N/A 0 0 0 0 0 Hypopneas: N/A 90 90 0 49 49 RERA N/A 1 1 0 2 2 Total Supine Events: N/A 94 94 1 58 59 Supine AHI: N/A 62.7 62.7 1.3 13.8 11.9 Supine RDI: N/A 63.4 63.4 1.3 14.3 12.3 OXYGEN DESTAURATION DATA: Event Count Index Event Count Index REM Desaturations: N/A N/A 0 0.0 NREM Desaturations: 132 89.0 49 12.1 SNORE DATA DIAGNOSTIC TREATMENT Snore Time: 16.8 1:04:39 AM Snore TST%: 11 3 Snore Arousal Count: 10 4 Snore Arousal Index: 6.7 0.8 Desaturation Event Summary: Minimum %SpO2 Event Count Mean/Min/Max Duration(sec.) Desaturation Index % Time In Bed > 90 190 17.4 / 6.5 / 50.5 31.6 79.9 86 - 90 28 13.6 / 7.0 / 35.3 18.9 19.7 81 - 85 0 N/A 0.0 0.4 76 - 80 0 N/A 0.0 0.0 71 - 75 0 N/A 0.0 0.0 66 - 70 0 N/A 0.0 0.0 61 - 65 0 N/A 0.0 0.0 56 - 60 0 N/A 0.0 0.0 51 - 55 0 N/A 0.0 0.0 < 50 0 N/A 0.0 0.0 OXYGEN SATURATION DATA DIAGNOSTIC TREATMENT SpO2 Mean Sleep: 91 % 93 % SpO2 Mean REM: N/A % 95 % SpO2 Mean NREM: 91 % 93 % SpO2 Minimum Sleep: 84 % 88 % SpO2 Minimum REM: N/A % 91 % SpO2 Minimum NREM: 84 % 88 % Time Below 90% (TST): 26.3 5.9 Time Below 88% (TST): 7.9 0.0 Total REM NREM Awake <50% 0.0 min. 0.0 min. 0.0 min. 0.0 min. 51 - 60% 0.0 min. 0.0 min. 0.0 min. 0.0 min. 61 - 70% 0.0 min. 0.0 min. 0.0 min. 0.0 min. 71 - 80% 0.0 min. 0.0 min. 0.0 min. 0.0 min. 81 - 90% 90.6 min. 0.0 min. 59.3 min. 31.3 min. 91 - 100% 361.0 min. 45.0 min. 271.9 min. 44.1 min. Average 92 95 92 91 Minimum SpO2 84 91 84 85 Desaturation Event Index 25.5 0.0 32.7 9.2 # Desat. Events below 89% 110 N/A 106 4 Time(%) with Saturation below 89% 4.7 0.0 3.7 1.0 Time(min.) with Saturation below 89% 21.3 0.0 16.7 4.6 Recording Preschool Teacher Comments: Mrs. Armijo slept in the left and supine positions. No cardiac arrhythmia noted. PLM's were noted. No bruxism noted. Snoring was noted and scored as a 4 on a scale of 1 through 5. (0=no snoring, 5=snoring loud enough to be heard through a closed door or down the [address]) At 12:30 AM she had met specific Split-Night criteria during the diagnostic portion of this study. CPAP was initiated at +4 CMH2O and up-titrated to a level of +14 CMH2O. A small Quattro Air full face mask by [employer] was used during titration. She did not use the restroom during the night. She stated that she slept well. The final report will be interpreted and signed by a sleep physician. The completed physician report will then be placed in the patient medical record. Therapy Event: Therapy (cm H20) 0 4 6 8 10 12 14 Total Time at Pressure (min.) 121.5 42.0 6.9 10.3 11.9 30.3 232.1 TST at Pressure (min.) 89.0 7.0 6.9 10.3 11.9 30.3 221.6 # Periods 1 1 1 1 1 1 1 Sleep Onset (min.) 29.5 34.0 0.0 0.0 0.0 0.0 0.0 REM Onset (min.) N/A N/A N/A N/A N/A N/A 187.1 Sleep Efficiency % 73 16 100 100 100 100 95 Wakefulness (%) 26.7 83.3 0.0 0.0 0.0 0.0 4.5 Wakefulness (min.) 32.5 35.0 0.0 0.0 0.0 0.0 10.5 NREM 1 (%) 8.6 2.4 0.0 9.7 0.0 0.0 0.9 NREM 1 (min.) 10.5 1.0 0.0 1.0 0.0 0.0 2.0 NREM 2 (%) 64.6 14.3 100.0 90.3 100.0 4.6 48.5 NREM 2 (min.) 78.5 6.0 6.9 9.3 11.9 1.4 112.5 NREM 3 (%) 0.0 0.0 0.0 0.0 0.0 95.4 26.8 NREM 3 (min.) 0.0 0.0 0.0 0.0 0.0 28.9 62.1 REM (%) 0.0 0.0 0.0 0.0 0.0 0.0 19.4 REM (min.) 0.0 0.0 0.0 0.0 0.0 0.0 45.0 # Arousals 47 4 2 8 2 1 10 Arousal Index 31.7 34.2 17.4 46.7 10.1 2.0 2.7 # Snore 512 7 14 49 110 108 82 Snore Index 345.2 59.9 121.9 286.0 552.9 213.9 22.2 AHI 62.7 34.2 121.9 110.9 45.2 5.9 2.2 AHI Supine N/A N/A N/A N/A N/A N/A N/A AHI Non-Supine 62.7 34.2 121.9 110.9 45.2 5.9 2.2 NREM AHI 62.7 34.2 121.9 110.9 45.2 5.9 2.4 REM AHI N/A N/A N/A N/A N/A N/A 1.3 RDI 63.4 34.2 121.9 116.8 50.3 5.9 2.2 # Obstructive 3 0 0 7 0 0 0 # Central Ap 0 0 0 0 0 0 1 # Mixed 0 0 0 0 0 0 0 # Hypopneas 90 4 14 12 9 3 7 RERAS 1 0 0 1 1 0 0 Total Respiratory Events 94 4 14 20 10 3 8 Time Below SpO2 89.00% (min.) 15.9 0.0 0.0 0.1 0.4 0.1 0.2 Mean NREM SpO2 (%) 91 92 92 92 92 92 93 Mean REM SpO2 (%) N/A N/A N/A N/A N/A N/A 95 Mean Sleep SpO2 (%) 91 92 92 92 92 92 93 Min NREM SpO2 (%) 84 89 89 88 88 88 88 Min REM SpO2 (%) N/A N/A N/A N/A N/A N/A 91 Position Supine (min.) 0.0 0.0 0.0 0.0 0.0 0.0 0.0 Position Non-supine (min.) 89.0 7.0 6.9 10.3 11.9 30.3 221.6 LM Index Sleep 63.4 17.1 26.1 29.2 55.3 71.3 13.0 LM Index NREM 63.4 17.1 26.1 29.2 55.3 71.3 16.0 LM Index REM N/A N/A N/A N/A N/A N/A 1.3 Mean Heart Rate (bpm) 68 61 62 63 63 61 60 Min Heart Rate (bpm) 58 60 60 60 59 60 59
--- NOTE | 2018-06-13 12:22 | POLYSOMNOGRAPH REPORT ---
CLINICAL DATA: A 62-year-old female with BMI of 47.8, referred by Dr. Tal Van for a possible split night study. She has a history of severe sleep apnea and obesity. Her Jay Em sleepiness score was 12/24. This was a split night study. SLEEP ARCHITECTURE: For the diagnostic portion of the study, sleep period time was 92 minutes. Total sleep time was 89 minutes, all non-REM sleep. Sleep latency was delayed at 29.5 minutes. Sleep efficiency was 73%. Sleep consisted of stage N1 12% and stage N2 88%. For the treatment portion of the study, sleep period time was 299.5 minutes. Total sleep time was 288 minutes divided between 243 minutes of non-REM sleep and 45 minutes of REM sleep. Sleep latency was 34 minutes. Sleep efficiency was 86%. Sleep consisted of stage N1 1%, stage N2 51%, stage N3 32%, and REM 16%. AROUSAL DATA: Prior to treatment, 47 arousals were recorded for an index of 31.7 per hour. During treatment, 27 arousals were recorded for an index of 5.6 per hour. PLM DATA: Prior to treatment, 72 limb movements during sleep were noted for an index of 48.5 per hour. During treatment, 89 limb movements during sleep were noted for an index of 18.5 per hour. EKG: Heart rates ranged from 60-95 beats per minute. No arrhythmias were noted. RESPIRATORY DATA: Severe sleep apnea was documented prior to treatment. The diagnostic AHI was 62.7. There were 3 obstructive apneic episodes and 90 hypopneic episodes prior to treatment. The average AHI with treatment was 11.9. There were 7 obstructive and 1 central apneic episodes and 49 hypopneic episodes during treatment. OXIMETRY DATA: Nocturnal hypoxemia was seen prior to treatment. Oxygen jamie was 84% during non-REM sleep prior to treatment. Mean saturation with treatment was 93%. CHECK EXAMINER'S COMMENTS AND TREATMENT SUMMARY: The patient slept in the left and supine position. Snoring was severe, rated 4 on a scale of 1-5. At 12:30 a.m., the patient met split night criteria. She used a small Quattro Air full facemask by [employer]. CPAP was started and was titrated up to 14 cm of water pressure. At her final pressure setting, she slept for 221.6 minutes with an AHI of 2.2. IMPRESSION: Severe sleep apnea/hypopnea with a diagnostic AHI of 62.7 corrected with CPAP 14 cm of water pressure, small Quattro full facemask by [employer] with a residual AHI of 2.2 and improvement in sleep architecture. RECOMMENDATIONS: The patient should be started on the above noted treatment regimen and seen back in followup within 90 days to document efficacy and compliance. MTDD
== END | disposition home or self-care (01) ==
LOC: C.NEUR 20:00
PROVIDERS: ATTEND Internal Medicine
DX: G47.30 Sleep apnea, unspecified (principal)

== ENCOUNTER → 2018-06-12 | Outpatient (CLI) | payer OTHER | END | disposition home or self-care (01) | LOC: C.LABPBG 09:52 | PROVIDERS: ATTEND Internal Medicine | DX: Z79.01 Long term (current) use of anticoagulants (principal); Z86.718 Personal history of other venous thrombosis and embolism; Z95.0 Presence of cardiac pacemaker ==

== ENCOUNTER → 2018-07-06 | Outpatient (CLI) | payer OTHER ==
[~2018-07-06] MED LIST changes: -ENOX1INJ11 SC
[2018-07-06 17:22] LABS: BLOOD UREA NITROGEN 29 mg/dl (7-18); CALCIUM 8.5 mg/dl (8.5-10.1); CARBON DIOXIDE 28 mmol/L (21-32); CHOLESTEROL 144 mg/dl (0-200); CREATININE 1.07 mg/dl (0.60-1.20); GLUCOSE 185 mg/dl (70-99); LDL CHOLESTEROL CALCULATED 58 mg/dl; POTASSIUM 4.7 mmol/L (3.5-5.1); SODIUM 139 mmol/L (136-145)
[2018-07-07 06:17] LABS: HEMOGLOBIN A1C 8.2 % (4.5-5.6)
== END | disposition home or self-care (01) ==
LOC: C.LABPBG 11:43
PROVIDERS: ATTEND Nurse Practitioner Family
DX: E11.65 Type 2 diabetes mellitus with hyperglycemia (principal); E55.9 Vitamin D deficiency, unspecified

== ENCOUNTER → 2018-07-13 | Outpatient (CLI) | payer OTHER ==
--- NOTE | 2018-07-13 10:41 | DIAGNOSTIC IMAGING REPORT ---
CT SCAN OF THE LUMBAR SPINE WITHOUT IV CONTRAST CLINICAL HISTORY: Lumbago. Chronic low back pain. COMPARISON STUDY: Radiographs of the lumbar spine dated 06/03/2016. Abdominal CT dated 05/28/2018. TECHNIQUE: CT scan of the lumbar spine is performed from the lower thoracic spine to the sacrum. Images are reviewed in the axial, sagittal, and coronal planes. IV contrast was not administered for this examination. A dose lowering technique was utilized adhering to the principles of ALARA. CT DOSE: 875.00 mGy.cm FINDINGS: The skeletal structures are osteopenic. There is no evidence of acute fracture or malalignment involving the lumbar spine. There is a mild chronic superior endplate compression deformity of L2, unchanged from prior studies. Vertebral body height is otherwise maintained throughout the lumbar spine. Alignment is preserved. Minimal lumbar levocurvature is noted centered at L3. Findings indicate previous right hemilaminectomy at L4-L5 and L5-S1. There are large anterior and lateral marginal osteophytes seen throughout. The transverse and spinous processes appear intact. There is no spondylolysis. No lytic or blastic lesion is seen. Moderate to advanced facet arthropathy is noted in the lower lumbar region. This causes bilateral neural foraminal stenosis at L4-L5 and L5-S1. There is advanced disc space narrowing at L3-L4 with vacuum phenomenon and significant endplate sclerosis. Moderate to advanced disc space narrowing is seen at the remaining lumbar levels. Large posterior disc-osteophyte complexes are seen at L2-L3, L3-L4, L4-L5, and L5-S1. There is likely mild multilevel acquired compromise of the central canal. There is no evidence of large disc herniation by CT. The visualized sacrum and bony pelvis appear intact. Degenerative change and vacuum phenomenon are noted in the sacroiliac joints. A bone island is partially imaged in the left ilium. The paraspinous soft tissues are normal in appearance. There is fatty atrophy of the paraspinous muscular tear. Moderate to advanced atherosclerotic calcification is noted in the abdominal aorta which is normal in caliber. IMPRESSION: 1. No acute bony abnormality is identified involving the lumbar spine. 2. Osteopenia with lumbosacral spondylosis, scoliosis, and postoperative change as detailed above. 3. There is a mild chronic compression deformity of L2, similar to prior studies. Dictated: 07/13/2018 9:35 AM Transcribed: 07/13/2018 10:41 AM [email or web address] Electronically signed by: Eron Modi M.D. 07/13/2018 10:45 AM Dictated Date/Time: 07/13/2018 9:35 AM
== END | disposition home or self-care (01) ==
LOC: C.CTS 09:05
PROVIDERS: ATTEND Physician Assistant
DX: M85.88 Other specified disorders of bone density and structure, other site (principal); M47.897 Other spondylosis, lumbosacral region; M41.26 Other idiopathic scoliosis, lumbar region; Z98.890 Other specified postprocedural states

== ENCOUNTER 2023-03-01 14:58 | Inpatient (IN) ==
--- NOTE | 2023-03-01 15:30 | ED Triage Note ---
Date of Service March 01, 2023 History of Present Illness This patient was briefly evaluated while in triage. An abbreviated physical exam was performed. This patient is a 67-year-old Female with PMHx of PE currently anticoagulated on Coumadin who presents to the ED for evaluation of shortness of breath for one month. She states it is worse with exertion. She has been seeing her PCP and had a chest x-ray which was negative. They have been treating her for asthma but her PCP referred her here today for further testing. Nebulizers have not helped. She has history of a PE but is on Coumadin. She states she has not had her levels checked in a while. Physical Exam VITALS: Vitals are noted on the nurse's note and reviewed by myself. GENERAL: This is a 67-year-old female, sitting up in a chair, appears slightly sob. NECK: Supple without nuchal rigidity. HEART: Regular rate and rhythm without murmurs gallops or rubs. LUNGS: Decreased breath sounds throughout. No retractions or accessory muscle use. NEURO: Patient was alert and oriented to person place and time. Initial orders for labs and / or imaging were placed and patient was placed in the waiting area until a bed is available. Please see further documentation for the full ED course. MDM / Impression Impression Impression: Fluid overload, RACHEL (acute kidney injury)
[2023-03-01 16:28] LABS: Basophils # (auto) 0.06 K/uL (0-0.2); Eosinophils # (auto) 0.35 K/uL (0-0.50); Eosinophils % (auto) 5.9 %; Hemoglobin 14.2 g/dl (12.0-16.0); Immature Granulocytes # (auto) 0.01 K/uL (0.01-0.20); Immature Granulocytes % (auto) 0.2 %; Lymphocytes # (auto) 1.64 K/uL (1.2-3.4); Lymphocytes % (auto) 27.6 %; Mean Corpuscular Hemoglobin 30.3 pg (25.0-34.0); Mean Corpuscular Hgb Conc 33.8 g/dL (32.0-36.0); Mean Corpuscular Volume 89.7 fL (80.0-100.0); Mean Platelet Volume 12.3 fL (9.4-12.4); Monocytes % (auto) 10.1 %; Neutrophils # (auto) 3.29 K/uL (1.40-6.50); Neutrophils % (auto) 55.2 %; Platelet Count 184 K/uL (130-400); RDW Coefficient of Variation 13.6 % (11.5-14.5); RDW Standard Deviation 44.5 fL (36.4-46.3); Red Blood Count 4.68 M/uL (4.20-5.40); White Blood Count 5.95 K/ul (4.8-10.8)
--- NOTE | 2023-03-01 16:28 | XRay Report ---
SINGLE VIEW CHEST CLINICAL HISTORY: Dyspnea. FINDINGS: 2 AP, portable, upright chest radiographs are compared to study dated 05/15/2020 and correla preston with chest CT dated 04/15/2016. A 2-lead cardiac pacemaker is unchanged in position and partially obscures the left upper chest. The heart is enlarged and noting atherosclerotic calcification of the thoracic aorta. There is pulmonary vascular congestion. Scarring/atelectasis is noted at the lung bas es. No large pleural effusion or pneumothorax is seen. The skeletal structures are osteopenic. The emery ny thorax is grossly intact. IMPRESSION: 1. Cardiomegaly and cardiac pacemaker with pulmonary vascular congestion. 2. No airspace consolidation or large pleural effusion is identified. ACT 112: Negative or not required by law. Electronically signed by: Eron Modi M.D. 03/01/2023 4:26 PM
[2023-03-01 16:50] LABS: Alanine Aminotransferase 21 U/L (7-52); Albumin Globulin Ratio 1.1 (0.9-2); Albumin Level 3.8 gm/dl (3.4-5.0); Alkaline Phosphatase 62 U/L (34-104); Anion Gap 5 (3-11); BUN Creatinine Ratio 18.7 (10-20); Blood Urea Nitrogen 34 mg/dl (6-23); Carbon Dioxide 27 mmol/L (21-32); Chloride 104 mmol/L (98-107); Creatinine Clr Calc Pharmacy 44.8 ml/min; Est GFR (African American) 32.7 ml/min; Est GFR (Non-African American) 28.2 ml/min; Globulin 3.4 gm/dl (2.5-4.0); Glucose 204 mg/dl (70-99(Fasting)); Sodium 136 mmol/L (136-145); Total Protein 7.2 gm/dl (6.0-8.3); Troponin I High Sensitivity 10.2 pg/ml (0-14)
[2023-03-01 19:47] LABS: iSTAT Creatinine 1.6 mg/dl (0.6-1.3); iSTAT Hemoglobin 15.3 g/dl (12.0-16.0); iSTAT Ionized Calcium 1.19 mmol/l (1.12-1.32); iSTAT Potassium 4.1 mmol/L (3.3-5.0)
[2023-03-01 20:17] LABS: INR 2.2 (0.9-1.1); Partial Thromboplastin Ratio 1.4; Partial Thromboplastin Time 37.4 Seconds (21.0-31.0); Prothrombin Time 22.2 Seconds (9.0-12.0)
[2023-03-01] MEDS ORDERED: FUROSEMIDE 40 MG/4 ML VIAL IV ONE (21:09)
--- NOTE | 2023-03-01 22:20 | History & Physical Report ---
Date of Service March 01, 2023 Assessment & Plan (1) Dyspnea on exertion: Plan: 67-year-old woman with history of type 2 diabetes with diabetic neuropathy, well-controlled asthma, and prior pulmonary embolism who presented to the hospital with worsening shortness of breath x1 month. Now admitted for further management of dyspnea on exertion. Dyspnea on exertion -1 month old. No prior episodes. No recent infections. Asthma is well controlled on as needed inhalers. -Afebrile, no leukocytosis, no evidence of hypoxia or hypercapnia, breathing comfortably on room air. -Troponin, BNP, within normal limits. * Admit to MedSurg * IV Lasix 40 mg daily * Nitro-Bid 2% paste x1 * Serial a.m. CXR * Daily I's & O's * TTE echocardiogram pending. * Nighttime CPAP * Continue home as needed inhalers RACHEL -Creatinine of 1.82 on admission (baseline 1.0-1.2). -Enalapril, amlodipine held on admission. -Now s/p IV Lasix 40 mg in the ED * Trend creatinine * IV Lasix 40 mg daily as above DM2 -Chronically managed on 100 units of Lantus daily, with mealtime NovoLog * SQ Lantus 65 units daily * SSI NovoLog per protocol (CF-15; CR 5) * ACHS glucose checks Hypertension -Chronically managed on amlodipine 10 mg, enalapril 20 mg twice daily, Lasix 40 mg p.o daily. -Held amlodipine (pedal edema), enalapril (RACHEL) on admission. * Continue holding amlodipine, enalapril * IV Lasix as above * I's & O's as above, monitor vitals GERD * IV Protonix 40 mg twice daily Asthma -Well managed, on as needed inhalers. Last flare years ago. * Continue home as needed inhalers History of pulmonary embolus, chronic use of anticoagulation -Chronically on warfarin. INR at goal range on admission. * Continue home regimen. Anxiety * Home citalopram 40 mg daily Hyperlipidemia * Home atorvastatin 40 mg daily. Code: Full code Dispo: Med-Surg FEN/GI: Carb consistent DVT Prophylaxis: Coumadin PT/OT: Yes Consults: None (2) RACHEL (acute kidney injury): (3) Type 2 diabetes mellitus: (4) HTN (hypertension): (5) Asthma: (6) GERD without esophagitis: (7) halfway (current) use of anticoagulants: (8) Pulmonary embolism: (9) Sleep apnea with use of continuous positive airway pressure (CPAP): History of Present Illness Primary Care Provider: RONNIE Torres Sofia is a 67-year-old woman with a past medical history of asthma (as needed rescue inhalers, no daily maintenance therapy), T2DM, diabetic neuropathy, and previous pulmonary embolism who presented to the emergency room today from clinic with worsening dyspnea on exertion x1 month. Patient was initially treated outpatient for cough and shortness of breath but continued to report dyspnea on exertion (with walking) at outpatient follow-up this afternoon. She was then sent to the emergency room. She denies any incidence of chest pain, shortness of breath at rest, recent illness, abdominal pain, dizziness, or syncope. ROS + paroxysmal nocturnal dyspnea x1 month, and bilateral pedal edema. In the ED, vitals were notable for BPs in the 140s-160s systolic/70s-90s diastolic. Labs are notable for PT-22.2, INR-2.2 (patient is chronically on Coumadin, INR within goal range), PTT-37.4. CBC completely normal. CMP revealed creatinine of 1.82, which improved to 1.64 hours later. Glucose elevated at 204, but improved to 136. Transaminases, LFTs all within normal limits. Initial troponin negative. BNP-31. CXR showed cardiomegaly with pulmonary vascular congestion. She received a dose of IV Lasix 40 mg x 1 and attending hospitalist was contacted for admission. On admission, patient is resting comfortably on room air. She continues to report dyspnea with walking to and from the restroom, which is about 10 to 12 feet away from bedside. She continues to deny shortness of breath at rest. Though she has a history of asthma, she has not used any of her as needed inhalers for several years now. She admits to history of smoking but stopped almost 40 years ago. She denies med nonadherence. Allergies Allergy/AdvReac Type Severity Reaction Status Date / Time Penicillins Allergy Intermediate HIVES Verified 03/01/23 19:49 benzocaine Allergy Mild water Verified 03/01/23 19:49 blisters fenofibrate AdvReac Intermediate diarrhea Verified 03/01/23 19:49 morphine AdvReac Intermediate vomiting Verified 04/11/23 19:49 WHEAT/GLUTEN Allergy Intermediate CELIAC Uncoded 03/01/23 19:49 DISEASE--GI UPSET Home Medications Medication Instructions Recorded Confirmed Type lancets 33 gauge ([facility] #100 ea 07/02/19 03/01/23 Rx Lancets) ipratropium 0.5 mg-albuterol 3 mg 3 ml inhalation Q6H PRN Shortness 09/13/19 03/01/23 History (2.5 mg base)/3 mL nebulization Of Breath #180 mL soln calcium citrate 200 mg (950 mg) 200 mg PO DAILY 11/02/21 03/01/23 History tablet amlodipine 10 mg tablet 10 mg PO PM #90 tabs 12/30/21 03/01/23 Rx vitamin B complex 1 tab PO DAILY 01/25/22 03/01/23 History insulin syringes (disposable) 1 mL #300 ea 01/26/22 03/01/23 Rx blood sugar diagnostic ([facility] #100 ea 04/01/22 03/01/23 Rx Verio test strips) enalapril maleate 20 mg tablet 20 mg PO BID #180 tabs 06/28/22 03/01/23 Rx cetirizine 10 mg tablet 10 mg PO DAILY #30 tabs 08/30/22 03/01/23 Rx fluticasone propionate 50 2 spray intranasal DAILY #48 grams 09/20/22 03/01/23 Rx mcg/actuation nasal spray,suspension furosemide 40 mg tablet 40 mg PO DAILY #90 tabs 10/04/22 03/01/23 Rx atorvastatin 40 mg tablet (Lipitor) 40 mg PO DAILY #90 tabs 10/21/22 03/01/23 Rx citalopram 40 mg tablet (Celexa) 40 mg PO DAILY #90 tabs 11/24/22 03/01/23 Rx pantoprazole 40 mg tablet,delayed 40 mg PO DAILY #90 tabs 12/10/22 03/01/23 Rx release (Protonix) insulin glargine 100 unit/mL (3 100 unit subcut DAILY 90 days #90 01/28/23 03/01/23 Rx mL) subcutaneous pen (Basaglar mL KwikPen U-100 Insulin) albuterol sulfate 90 mcg/actuation 2 puff inhalation Q4H PRN 02/21/23 03/01/23 Rx aerosol inhaler (Ventolin HFA) Shortness Of Breath #18 grams insulin aspart U-100 100 unit/mL 120 unit (1.2 mL) subcut DAILY 30 02/23/23 03/01/23 Rx subcutaneous solution (Novolog days #40 mL U-100 Insulin aspart) levalbuterol HCl 0.63 mg/3 mL 0.63 mg (3 mL) inhalation TID PRN 02/23/23 03/01/23 Rx solution for nebulization shortness of breath or wheezing #75 mL albuterol sulfate 1.25 mg/3 mL 1.25 mg (3 mL) inhalation QID PRN 02/24/23 03/01/23 Rx solution for nebulization shortness of breath or wheezing #75 mL omega-3 fatty acids 1,000 mg 1,000 mg PO DAILY 03/01/23 03/01/23 History capsule warfarin 10 mg tablet 5 mg PO 2XWK 03/01/23 03/01/23 History warfarin 7.5 mg tablet 7.5 mg PO 5XWK 03/01/23 03/01/23 History zinc gluconate 50 mg tablet 50 mg PO DAILY 03/01/23 03/01/23 History Past Med/Surg History Medical History Carpal tunnel syndrome Chronic venous insufficiency Diabetic neuropathy Factor V Leiden mutation Frequent UTI Hepatic steatosis Lumbago Lyme disease Microalbuminuria due to type 2 diabetes mellitus Morbid obesity Multinodular goiter Other specified disorders of adrenal glands Pulmonary embolism Renal cyst Secondary hyperparathyroidism Type 2 diabetes mellitus Surgical History H/O cardiac catheterization H/O total adrenalectomy History of carpal tunnel release of both wrists History of hysterectomy History of lumbar laminectomy Pacemaker Status post laser ablation of incompetent vein (07/16/20) Family History Father Diabetes Hypertension Lung disease Sister Lung cancer Denies family history of Ovarian cancer Prostate cancer Coronary heart disease Heart disease Myocardial infarction Breast cancer Colorectal cancer Social History Smoking Status: Former smoker Tobacco Type: Cigarettes Age Started Using Tobacco: 16; Age Quit Using Tobacco: 28; packs per day: 0.5; Second Hand Exposure: No; Hx Alcohol Use: No Hx Substance Use: No Preferred Language: Guyanese Communication Ability: Effective Visual Impairment: No Limitations Hearing Ability: Normal Study Manager Required: No Beliefs That Will Affect Care: None marital status: Current Living Situation: Spouse current occupational status: retired 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 Normal conjunctiva, anicteric sclera. Oropharynx normal. Respiratory: Diminished breath sounds bilaterally. End expiratory wheeze heard bilaterally. Cardiovascular: RRR without murmurs, gallops, or rubs. 3+ bilateral pitting edema to below the knee. GI: Large abdomen with normal bowel sounds heard on auscultation. Nontender x4 quadrants Neuro: Alert and oriented x3. Results & Data Results & Data Vital Signs (Past 12 Hours) Vital Signs Temp Pulse Pulse Resp BP BP Pulse Ox 03/01/23 22:10 68 23 175/83 H 96 03/01/23 22:00 71 24 96 03/01/23 21:50 61 28 H 95 03/01/23 21:40 70 23 95 03/01/23 21:36 79 17 93 03/01/23 21:20 61 15 95 03/01/23 21:10 61 16 95 03/01/23 21:00 61 17 95 03/01/23 21:00 157/77 H 03/01/23 20:50 66 24 96 03/01/23 20:40 66 14 97 03/01/23 20:30 61 17 96 03/01/23 20:30 144/78 H 03/01/23 20:20 63 11 L 96 03/01/23 20:10 78 21 96 04/11/23 20:00 77 17 96 03/01/23 20:00 158/90 H 03/01/23 19:50 73 21 94 03/01/23 20:39 03/01/23 20:39 64 13 144/78 H 96 03/01/23 19:42 72 20 179/99 H 95 03/01/23 19:45 94 03/01/23 19:38 77 03/01/23 15:27 36.5 C 80 28 H 142/82 H 94 O2 Del Method 03/01/23 22:10 03/01/23 22:00 03/01/23 21:50 03/01/23 21:40 03/01/23 21:36 03/01/23 21:20 03/01/23 21:10 03/01/23 21:00 03/01/23 21:00 03/01/23 20:50 03/01/23 20:40 03/01/23 20:30 03/01/23 20:30 03/01/23 20:20 03/01/23 20:10 03/01/23 20:00 03/01/23 20:00 03/01/23 19:50 03/01/23 20:39 Room Air 03/01/23 20:39 Room Air 03/01/23 19:42 03/01/23 19:45 Room Air 03/01/23 19:38 03/01/23 15:27 Room Air Code Status & VTE Plan VTE Prophylaxis Plan VTE Prophylaxis will be ordered: Yes Supervising Physician Co-Signing Physician Notes Attending addendum: I have physically seen this patient, have supervised the medical residents activities, and agree with the H&P unless as otherwise noted. Assessment and Plan: CHF/hypertension/pacemaker presence/CAD- The patient will be admitted to telemetry for serial cardiac enzymes, serial EKG's, cardiac rhythm monitoring and a 2-D echocardiogram with Dopplers. Given Lasix 40 mg IV in ED, and continue every morning Nitropaste 1 inch to anterior chest wall every 6 hours Holding enalapril and amlodipine Acute kidney injury- Creatinine 1.82 on admission, with base 1-1.2 Hold enalapril Continue with IV Lasix as noted above Follow serial BMP and magnesium levels Diabetes mellitus- Lantus adjustment as noted Place on Accu-Cheks before meals and at bedtime with NovoLog coverage SSI Remaining orders and notations as noted Resident Activity Tracking Resident Involvement: Resident Care Provided Care Provided: Adult Hospital Medicine (4) HTN (hypertension) Hypertension type: unspecified Qualified Code(s): I10 - Essential (primary) hypertension (5) Asthma Asthma complication type: uncomplicated Asthma persistence: intermittent Asthma severity: mild Qualified Code(s): J45.20 - Mild intermittent asthma, uncomplicated
[2023-03-02] MEDS ORDERED: GLUCAGON FOR INJ 1 MG VIAL SQ PRN (01:11)
[2023-03-02] MEDS ORDERED: LEVALBUTEROL HCL 0.63 MG/3 ML NEB INH PRN (01:11)
[2023-03-02] MEDS ORDERED: GLUCOSE 40% GEL 15 GM TUBE PO PRN (01:11)
[2023-03-02] MEDS ORDERED: GLUCOSE 10 TAB/TUBE PO PRN (01:11)
[2023-03-02] MEDS ORDERED: DEXTROSE 50% 50 ML SYRINGE IV PRN (01:11)
[2023-03-02] MEDS ORDERED: CARBOHYDRATES FOR HYPOGLYCEMIA PO PRN (01:11)
[2023-03-02] MEDS ORDERED: NON-FORMULARY MEDICATION (Albuterol Sulfate 1.25 mg/3 mL solution for nebulization) INH PRN (01:11)
[2023-03-02] MEDS ORDERED: ALBUTEROL HFA 8 GM INHALER INH PRN (01:11)
--- NOTE | 2023-03-02 01:59 | Emergency Department Note ---
History of Present Illness General Chief Complaint: Shortness of Breath/Dyspnea Stated Complaint: SOB,CHEST PAIN,COUGH,DOC REF Time Seen by Provider: 03/01/23 19:16 History of Present Illness Provider Complaint: shortness of breath Onset (ago): week(s) (3) Severity: moderate Consistency/Duration: + progressively worsening Maximum Pain Intensity: 4 Relieved By: + nothing Exacerbated By: + exertion Context: + occurred during exertion Known history of: asthma Associated symptoms: + orthopnea; no chest pain, no fever, no cough, no sputum production, no abdominal pain or no chest congestion Treatment prior to arrival: none Home Medications Medication Instructions Recorded Confirmed Type lancets 33 gauge [facility] 03/01/23 Rx Lancets) ipratropium 0.5 mg-albuterol 3 mg 3 ml inhalation Q6H PRN Shortness 09/13/19 03/01/23 History (2.5 mg base)/3 mL nebulization Of Breath #180 mL soln calcium citrate 200 mg (950 mg) 200 mg PO DAILY 11/02/21 03/01/23 History tablet amlodipine 10 mg tablet 10 mg PO PM #90 tabs 12/30/21 03/01/23 Rx vitamin B complex 1 tab PO DAILY 01/25/22 03/01/23 History insulin syringes (disposable) 1 mL #300 ea 01/26/22 03/01/23 Rx blood sugar diagnostic ([facility] #100 ea 04/01/22 03/01/23 Rx Verio test strips) enalapril maleate 20 mg tablet 20 mg PO BID #180 tabs 06/28/22 03/01/23 Rx cetirizine 10 mg tablet 10 mg PO DAILY #30 tabs 08/30/22 03/01/23 Rx fluticasone propionate 50 2 spray intranasal DAILY #48 grams 09/20/22 03/01/23 Rx mcg/actuation nasal spray,suspension furosemide 40 mg tablet 40 mg PO DAILY #90 tabs 10/04/22 03/01/23 Rx atorvastatin 40 mg tablet (Lipitor) 40 mg PO DAILY #90 tabs 10/21/22 03/01/23 Rx citalopram 40 mg tablet (Celexa) 40 mg PO DAILY #90 tabs 11/24/22 03/01/23 Rx pantoprazole 40 mg tablet,delayed 40 mg PO DAILY #90 tabs 12/10/22 03/01/23 Rx release (Protonix) insulin glargine 100 unit/mL (3 100 unit subcut DAILY 90 days #90 01/28/2303/01 Rx mL) subcutaneous pen (Basaglar mL KwikPen U-100 Insulin) albuterol sulfate 90 mcg/actuation 2 puff inhalation Q4H PRN 02/21/23 03/01/23 Rx aerosol inhaler (Ventolin HFA) Shortness Of Breath #18 grams insulin aspart U-100 100 unit/mL 120 unit (1.2 mL) subcut DAILY 30 02/23/23 03/01/23 Rx subcutaneous solution (Novo days #40 mL U-100 Insulin aspart) levalbuterol HCl 0.63 mg/3 mL 0.63 mg (3 mL) inhalation TID PRN 02/23/23 03/01/23 Rx solution for nebulization shortness of breath or wheezing #75 mL albuterol sulfate 1.25 mg/3 mL 1.25 mg (3 mL) inhalation QID PRN 02/24/23 03/01/23 Rx solution for nebulization shortness of breath or wheezing #75 mL omega-3 fatty acids 1,000 mg 1,000 mg PO DAILY 03/01/23 03/01/23 History capsule warfarin 10 mg tablet 5 mg PO [id number] 03/01/23 03/01/23 History warfarin 7.5 mg tablet 7.5 mg PO [id number] 03/01/23 03/01/23 History zinc gluconate 50 mg tablet 50 mg PO DAILY 03/01/23 03/01/23 History Allergies Allergy/AdvReac Type Severity Reaction Status Date / Time Penicillins Allergy Intermediate HIVES Verified 03/01/23 19:49 benzocaine Allergy Mild water Verified 03/01/23 19:49 blisters fenofibrate AdvReac Intermediate diarrhea Verified 03/01/23 19:49 morphine AdvReac Intermediate vomiting Verified 03/01/23 19:49 WHEAT/GLUTEN Allergy Intermediate CELIAC Uncoded 03/01/23 19:49 DISEASE--GI UPSET Past Med/Surg History Medical History Carpal tunnel syndrome Chronic venous insufficiency Diabetic neuropathy Factor V Leiden mutation Frequent UTI Hepatic steatosis Lumbago Lyme disease Microalbuminuria due to type 2 diabetes mellitus Morbid obesity Multinodular goiter Other specified disorders of adrenal glands Pulmonary embolism Renal cyst Secondary hyperparathyroidism Type 2 diabetes mellitus Surgical History H/O cardiac catheterization H/O total adrenalectomy History of carpal tunnel release of both wrists History of hysterectomy History of lumbar laminectomy Pacemaker Status post laser ablation of incompetent vein (07/16/20) L GSV ablation w/ VenaSeal closure Family History Father Diabetes Hypertension Lung disease Sister Lung cancer Denies family history of Ovarian cancer Prostate cancer Coronary heart disease Heart disease Myocardial infarction Breast cancer Colorectal cancer Social History Smoking Status: Former smoker Tobacco Type: Cigarettes Age Started Using Tobacco: 16; Age Quit Using Tobacco: 28; packs per day: 0.5; Second Hand Exposure: No; Hx Alcohol Use: No Hx Substance Use: No Preferred Language: Albanian Communication Ability: Effective Visual Impairment: No Limitations Hearing Ability: Normal Data Systems Analyst Required: No Beliefs That Will Affect Care: None marital status: Current Living Situation: Spouse 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 How many Children do You have: 2 Feels Safe at Home: Yes Childhood Exposure to Second-Hand Smoke: Yes caffeine: Yes during the past year weight has: remained stable Dental Care, Regularly: No Physical Activity Frequency: Does not Exercise Seatbelt Use: always Sunscreen Use: Yes Physical Exam Vital Signs: Vital Signs - 24 hr 03/01/23 15:27 03/01/23 19:38 03/01/23 19:45 Temperature 36.5 C Temperature Source Temporal Artery Sc an Pulse Rate 80 77 Pulse Rate [Right Finger] Pulse Rate from Sp O2 Sensor Pulse Rhythm Regular Pulse Rhythm [Righ t Finger] Pulse Strength [Ri ght Finger] Respiratory Rate 28 H Respiratory Effort / Characteristics Non-Labored Sponta neous Respiratory Depth Normal Respiratory Patter n Regular Blood Pressure 142/82 H Blood Pressure [Ri ght Arm] Blood Pressure Sheron n 102 Blood Pressure Sheron n [Right Arm] Blood Pressure Pos ition [Right Arm] Pulse Oximetry 94 94 Oxygen Delivery Me thod Room Air Room Air Sepsis Recent Feve r Within 48 Hours No Sepsis New/Unexpla ined Change in Men jenae Status N/A Sepsis Action Take n by Nursing No Action Required 03/01/23 19:42 03/01/23 20:39 03/01/23 20:39 Temperature Temperature Source Pulse Rate 72 Pulse Rate [Right Finger] 64 Pulse Rate from Sp O2 Sensor Pulse Rhythm Pulse Rhythm [Righ t Finger] Regular Pulse Strength [Ri ght Finger] Normal Respiratory Rate 20 13 Respiratory Effort / Characteristics Non-Labored Sponta neous Respiratory Depth Normal Respiratory Patter n Regular Blood Pressure 179/99 H Blood Pressure [Ri ght Arm] 144/78 H Blood Pressure Sheron n 125 Blood Pressure Sheron n [Right Arm] 100 Blood Pressure Pos ition [Right Arm] Lying Pulse Oximetry 95 96 Oxygen Delivery Me thod Room Air Room Air Sepsis Recent Feve r Within 48 Hours Sepsis New/Unexpla ined Change in Men jenae Status Sepsis Action Take n by Nursing 03/01/23 19:50 03/01/23 20:00 03/01/23 20:00 Temperature Temperature Source Pulse Rate 73 77 Pulse Rate [Right Finger] Pulse Rate from Sp O2 Sensor 73 73 Pulse Rhythm Pulse Rhythm [Righ t Finger] Pulse Strength [Ri ght Finger] Respiratory Rate 21 17 Respiratory Effort / Characteristics Respiratory Depth Respiratory Patter n Blood Pressure 158/90 H Blood Pressure [Ri ght Arm] Blood Pressure Sheron n 112 Blood Pressure Sheron n [Right Arm] Blood Pressure Pos ition [Right Arm] Pulse Oximetry 94 96 Oxygen Delivery Me thod Sepsis Recent Feve r Within 48 Hours Sepsis New/Unexpla ined Change in Men jenae Status Sepsis Action Take n by Nursing 03/01/23 20:10 03/01/23 20:20 03/01/23 20:30 Temperature Temperature Source Pulse Rate 78 63 Pulse Rate [Right Finger] Pulse Rate from Sp O2 Sensor 77 63 Pulse Rhythm Pulse Rhythm [Righ t Finger] Pulse Strength [Ri ght Finger] Respiratory Rate 21 11 L Respiratory Effort / Characteristics Respiratory Depth Respiratory Patter n Blood Pressure 144/78 H Blood Pressure [Ri ght Arm] Blood Pressure Sheron n 100 Blood Pressure Sheron n [Right Arm] Blood Pressure Pos ition [Right Arm] Pulse Oximetry 96 96 Oxygen Delivery Me thod Sepsis Recent Feve r Within 48 Hours Sepsis New/Unexpla ined Change in Men jenae Status Sepsis Action Take n by Nursing 03/01/23 20:30 03/01/23 20:40 03/01/23 20:50 Temperature Temperature Source Pulse Rate 61 66 66 Pulse Rate [Right Finger] Pulse Rate from Sp O2 Sensor 63 67 68 Pulse Rhythm Pulse Rhythm [Righ t Finger] Pulse Strength [Ri ght Finger] Respiratory Rate 17 14 24 Respiratory Effort / Characteristics Respiratory Depth Respiratory Patter n Blood Pressure Blood Pressure [Ri ght Arm] Blood Pressure Sheron n Blood Pressure Sheron n [Right Arm] Blood Pressure Pos ition [Right Arm] Pulse Oximetry 96 97 96 Oxygen Delivery Me thod Sepsis Recent Feve r Within 48 Hours Sepsis New/Unexpla ined Change in Men jenae Status Sepsis Action Take n by Nursing 03/01/23 21:00 03/01/23 21:00 03/01/23 21:10 Temperature Temperature Source Pulse Rate 61 61 Pulse Rate [Right Finger] Pulse Rate from Sp O2 Sensor 61 60 Pulse Rhythm Pulse Rhythm [Righ t Finger] Pulse Strength [Ri ght Finger] Respiratory Rate 17 16 Respiratory Effort / Characteristics Respiratory Depth Respiratory Patter n Blood Pressure 157/77 H Blood Pressure [Ri ght Arm] Blood Pressure Sheron n 103 Blood Pressure Sheron n [Right Arm] Blood Pressure Pos ition [Right Arm] Pulse Oximetry 95 95 Oxygen Delivery Me thod Sepsis Recent Feve r Within 48 Hours Sepsis New/Unexpla ined Change in Men jenae Status Sepsis Action Take n by Nursing 03/01/23 21:20 Temperature Temperature Source Pulse Rate 61 Pulse Rate [Right Finger] Pulse Rate from Sp O2 Sensor 62 Pulse Rhythm Pulse Rhythm [Righ t Finger] Pulse Strength [Ri ght Finger] Respiratory Rate 15 Respiratory Effort / Characteristics Respiratory Depth Respiratory Patter n Blood Pressure Blood Pressure [Ri ght Arm] Blood Pressure Sheron n Blood Pressure Sheron n [Right Arm] Blood Pressure Pos ition [Right Arm] Pulse Oximetry 95 Oxygen Delivery Me thod Sepsis Recent Feve r Within 48 Hours Sepsis New/Unexpla ined Change in Men jenae Status Sepsis Action Take n by Nursing Physical Exam: Physical Exam HENT: Exam performed. -Head: Normocephalic and atraumatic. -Right Ear: External ear normal. No mastoid erythema -Left Ear: External ear normal. No mastoid erythema EYES: Conjunctivae and EOM are normal. Pupils are equal, round, and reactive to light. Right eye exhibits no discharge. Left eye exhibits no discharge. No scleral icterus. NECK: Normal range of motion. Neck supple. No JVD present. No spinous process tenderness present. No tracheal deviation and normal range of motion present. CV: Normal rate, regular rhythm, normal heart sounds and intact distal pulses. There is 2+ pitting edema of the bilateral lower extremities. Palpable radial pulses bue. PULM/CHEST: Inspiratory rales bilaterally. NEURO: Motor and sensation grossly intact. SKIN: Skin is warm and dry. She is not diaphoretic. PSYCH: She has a normal mood and affect. Behavior is normal. Judgment and thought content normal. Course Course 1915: The patient was evaluated in room C2. A complete history and physical exam was performed Administered Medications Discontinued Medications Furosemide (Furosemide 40 Mg/4 Ml Vial) 40 mg IV ONE ONE Stop: 03/01/23 21:10 Last Admin: 03/01/23 22:10 Dose: 40 mg Documented By: JUNE Medical Decision Making Laboratory Data Attestation: I reviewed the patient's lab results. 03/01/23 15:45 03/01/23 19:13 Lab Results 03/01/23 03/01/23 03/01/23 Range/Units 15:31 15:45 15:45 WBC 5.95 (4.8-10.8) K/ul RBC 4.68 (4.20-5.40) M/uL Hgb 14.2 (12.0-16.0) g/dl POC Hgb (12.0-16.0) g/dl Hct 42.0 (37.0-47.0) % POC Hct (37-47) % MCV 89.7 (80.0-100.0) fL MCH 30.3 (25.0-34.0) pg MCHC 33.8 (32.0-36.0) g/dL RDW Std Deviation 44.5 (36.4-46.3) fL RDW Coeff of Tyler 13.6 (11.5-14.5) % Plt Count 184 (130-400) K/uL MPV 12.3 (9.4-12.4) fL Immature Gran % (Auto) 0.2 % Neut % (Auto) 55.2 % Lymph % (Auto) 27.6 % [place] % (Auto) 10.1 % Eos % (Auto) 5.9 % Baso % (Auto) 1.0 % Neut # (Auto) 3.29 (1.40-6.50) K/uL Lymph # (Auto) 1.64 (1.2-3.4) K/uL [place] # (Auto) 0.60 H (0.11-0.59) K/uL Eos # (Auto) 0.35 (0-0.50) K/uL Baso # (Auto) 0.06 (0-0.2) K/uL Immature Gran # (Auto) 0.01 (0.01-0.20) K/uL PT Cancelled INR Cancelled APTT Cancelled PTT Ratio Cancelled POC Sodium (135-144) mmol/L Sodium (136-145) mmol/L POC Potassium (3.3-5.0) mmol/L Potassium POC Chloride (101-112) mmol/L Chloride (98-107) mmol/L Carbon Dioxide (21-32) mmol/L POC Total CO2 (24-31) mmol/L Anion Gap (3-11) POC Anion Gap (16-25) mmol/L POC BUN (7-18) mg/dl BUN (6-23) mg/dl Creatinine (0.6-1.2) mg/dl POC Creatinine (0.6-1.3) mg/dl Est Cr Clr Drug Dosing ml/min Est GFR ( Amer) ml/min Est GFR (Non-Af Amer) ml/min BUN/Creatinine Ratio (10-20) Glucose (70-99(Fasting)) mg/dl POC Glucose (70-99) mg/dl POC Glucose (other) (70-99) mg/dl Calcium (8.6-10.3) mg/dl POC Ioniz Calcium Isadora (1.12-1.32) mmol/l Total Bilirubin (0.2-1.0) mg/dl AST ALT (7-52) U/L Alkaline Phosphatase (34-104) U/L Troponin I High Sens Cancelled B-Natriuretic Peptide (0-100) pg/ml Total Protein (6.0-8.3) gm/dl Albumin (3.4-5.0) gm/dl Globulin (2.5-4.0) gm/dl Albumin/Globulin Ratio (0.9-2) 03/01/23 03/01/23 03/01/23 Range/Units 15:45 19:13 19:13 WBC (4.8-10.8) K/ul RBC (4.20-5.40) M/uL Hgb (12.0-16.0) g/dl POC Hgb (12.0-16.0) g/dl Hct (37.0-47.0) % POC Hct (37-47) % MCV (80.0-100.0) fL MCH (25.0-34.0) pg MCHC (32.0-36.0) g/dL RDW Std Deviation (36.4-46.3) fL RDW Coeff of Tyler (11.5-14.5) % Plt Count (130-400) K/uL MPV (9.4-12.4) fL Immature Gran % (Auto) % Neut % (Auto) % Lymph % (Auto) % [place] % (Auto) % Eos % (Auto) % Baso % (Auto) % Neut # (Auto) (1.40-6.50) K/uL Lymph # (Auto) (1.2-3.4) K/uL [place] # (Auto) (0.11-0.59) K/uL Eos # (Auto) (0-0.50) K/uL Baso # (Auto) (0-0.2) K/uL Immature Gran # (Auto) (0.01-0.20) K/uL PT 22.2 H INR 2.2 H APTT 37.4 H PTT Ratio 1.4 POC Sodium (135-144) mmol/L Sodium 136 (136-145) mmol/L POC Potassium (3.3-5.0) mmol/L Potassium TNP 4.0 POC Chloride (101-112) mmol/L Chloride 104 (98-107) mmol/L Carbon Dioxide 27 (21-32) mmol/L POC Total CO2 (24-31) mmol/L Anion Gap 5 (3-11) POC Anion Gap (16-25) mmol/L POC BUN (7-18) mg/dl BUN 34 H (6-23) mg/dl Creatinine 1.82 H (0.6-1.2) mg/dl POC Creatinine (0.6-1.3) mg/dl Est Cr Clr Drug Dosing 44.8 ml/min Est GFR ( Amer) 32.7 ml/min Est GFR (Non-Af Amer) 28.2 ml/min BUN/Creatinine Ratio 18.7 (10-20) Glucose 204 H (70-99(Fasting)) mg/dl POC Glucose (70-99) mg/dl POC Glucose (other) (70-99) mg/dl Calcium 9.0 (8.6-10.3) mg/dl POC Ioniz Calcium Isadora (1.12-1.32) mmol/l Total Bilirubin 1.0 (0.2-1.0) mg/dl AST TNP 26 ALT 21 (7-52) U/L Alkaline Phosphatase 62 (34-104) U/L Troponin I High Sens 10.2 B-Natriuretic Peptide (0-100) pg/ml Total Protein 7.2 (6.0-8.3) gm/dl Albumin 3.8 (3.4-5.0) gm/dl Globulin 3.4 (2.5-4.0) gm/dl Albumin/Globulin Ratio 1.1 (0.9-2) 03/01/23 03/01/23 03/01/23 Range/Units 19:29 19:34 20:13 WBC (4.8-10.8) K/ul RBC (4.20-5.40) M/uL Hgb (12.0-16.0) g/dl POC Hgb 15.3 (12.0-16.0) g/dl Hct (37.0-47.0) % POC Hct 45 (37-47) % MCV (80.0-100.0) fL MCH (25.0-34.0) pg MCHC (32.0-36.0) g/dL RDW Std Deviation (36.4-46.3) fL RDW Coeff of [place] (11.5-14.5) % Plt Count (130-400) K/uL MPV (9.4-12.4) fL Immature Gran % (Auto) % Neut % (Auto) % Lymph % (Auto) % [place] % (Auto) % Eos % (Auto) % Baso % (Auto) % Neut # (Auto) (1.40-6.50) K/uL Lymph # (Auto) (1.2-3.4) K/uL [place] # (Auto) (0.11-0.59) K/uL Eos # (Auto) (0-0.50) K/uL Baso # (Auto) (0-0.2) K/uL Immature Gran # (Auto) (0.01-0.20) K/uL PT INR APTT PTT Ratio POC Sodium 139 (135-144) mmol/L Sodium (136-145) mmol/L POC Potassium 4.1 (3.3-5.0) mmol/L Potassium POC Chloride 102 (101-112) mmol/L Chloride (98-107) mmol/L Carbon Dioxide (21-32) mmol/L POC Total CO2 27 (24-31) mmol/L Anion Gap (3-11) POC Anion Gap 15.0 L (16-25) mmol/L POC BUN 32 H (7-18) mg/dl BUN (6-23) mg/dl Creatinine (0.6-1.2) mg/dl POC Creatinine 1.6 H (0.6-1.3) mg/dl Est Cr Clr Drug Dosing ml/min Est GFR ( Amer) ml/min Est GFR (Non-Af Amer) ml/min BUN/Creatinine Ratio (10-20) Glucose (70-99(Fasting)) mg/dl POC Glucose 130 H (70-99) mg/dl POC Glucose (other) 136 H (70-99) mg/dl Calcium (8.6-10.3) mg/dl POC Ioniz Calcium Isadora 1.19 (1.12-1.32) mmol/l Total Bilirubin (0.2-1.0) mg/dl AST ALT (7-52) U/L Alkaline Phosphatase (34-104) U/L Troponin I High Sens B-Natriuretic Peptide 31 (0-100) pg/ml Total Protein (6.0-8.3) gm/dl Albumin (3.4-5.0) gm/dl Globulin (2.5-4.0) gm/dl Albumin/Globulin Ratio (0.9-2) Imaging Data Attestation: I personally reviewed and interpreted this imaging study as follows: My Impression: Cardiomegaly with cephalization Radiologist's Impression: Chest X-Ray 03/01/23 15:30 SINGLE VIEW CHEST CLINICAL HISTORY: Dyspnea. FINDINGS: 2 AP, portable, upright chest radiographs are compared to study dated 05/15/2020 and correlated with chest CT dated 04/15/2016. A 2-lead cardiac pacemaker is unchanged in position and partially obscures the left upper chest. The heart is enlarged and noting atherosclerotic calcification of the thoracic aorta. There is pulmonary vascular congestion. Scarring/atelectasis is noted at the lung bases. No large pleural effusion or pneumothorax is seen. The skeletal structures are osteopenic. The bony thorax is grossly intact. IMPRESSION: 1. Cardiomegaly and cardiac pacemaker with pulmonary vascular congestion. 2. No airspace consolidation or large pleural effusion is identified. ACT 112: Negative or not required by law. Electronically signed by: Eron Modi M.D. 03/01/2023 4:26 PM ECG Data Attestation: I personally reviewed and interpreted this ECG as follows: Interpretation: Sinus rhythm with rate of 70. OR QRS and QTc intervals within normal limits. No ST elevation or ST depression. MDM Narrative Cardiac monitoring: An order was placed for continuous cardiac monitoring. The monitor shows a rate of 60 with sinus rhythm interpreted by sc Labs show therapeutic INR. Creatinine is elevated at 1.82, patient's baseline is usually around 1.1. Troponin negative. Chest x-ray shows cardiomegaly with pulmonary edema. Discussed case with [facility] hospitalist Dr. Esparza we feel that the patient's RACHEL is most likely due to to her enalapril usage. Enalapril will be held. Dr. Esparza recommends Lasix 40 mg IV push for diuresis of the patient. Patient has no history of CHF. Patient will be admitted by Dr. Esparza's team for diuresis echo and evaluation by cardiology. Impression & Plan Fluid overload, RACHEL (acute kidney injury) Discharge Plan Visit Data Chief Complaint: Shortness of Breath/Dyspnea Stated Complaint: SOB,CHEST PAIN,COUGH,DOC REF ED Provider: Osman Grider Discharge Problem: Fluid overload, RACHEL (acute kidney injury) Patient Disposition: Admitted As Inpatient Discharge Instructions Interventions: ED Discharge Assessment Last Done: 03/01/23 23:29
[2023-03-02] MEDS: INSULIN ASPART PER UNIT CHARGE SC SCH ×5 (02:33→21:17)
[2023-03-02] MEDS ORDERED: PNEUMOCOCCAL POLYSACCHARIDES 25 MCG/0.5 ML VIAL/SYR IM ONE (03:19)
[2023-03-02] MEDS ORDERED: NITROGLYCERIN 2% OINTMENT 30GM TUBE EXT ONE (04:53)
[2023-03-02] MEDS: ALBUT/IPRATROP 3MG/0.5MG NEB 3 ML VIAL INH PRN (05:55)
[2023-03-02] MEDS ORDERED: PERFLUTREN LIPID MICROSPHERE (DEFINITY) IV ONE (07:36)
--- NOTE | 2023-03-02 07:42 | Hospitalist Progress Note ---
Date of Service March 02, 2023 Assessment & Plan (1) Dyspnea on exertion: Plan: 67-year-old woman with history of type 2 diabetes with diabetic neuropathy, well-controlled asthma, and prior pulmonary embolism who presented to the hospital with worsening shortness of breath x1 month. Now admitted for further management of dyspnea on exertion. Dyspnea on exertion 1 month old. No prior episodes. No recent infections. Asthma is well controlled on as needed inhalers. Afebrile, no leukocytosis, no evidence of hypoxia or hypercapnia, breathing comfortably on room air. Troponin, BNP, within normal limits. Echo done on 03/02/2023 showed an EF of 60 to 65% and no significant change from prior study from 2016. May be related to patient's underlying asthma? Will order PFTs to confirm diagnosis. Most likely has a restrictive lung disease, does require CPAP at night for obstructive sleep apnea. Chest x-ray showed cardiomegaly and moderate pulmonary edema which was increased from chest x-ray on the day prior. Started IV Lasix 40 mg daily. Daily I's and O's. We will continue home inhalers. RACHEL Creatinine of 1.82 on admission (baseline 1.0-1.2). Enalapril, amlodipine held on admission. Now s/p IV Lasix 40 mg in the ED. Creatinine improved to 1.3 on 03/02. Daily BMPs. DM2 Chronically managed on 100 units of Lantus daily, with mealtime NovoLog SQ Lantus 65 units daily SSI NovoLog per protocol (CF-15; CR 5) ACHS glucose checks Hemoglobin A1c of 7.5 on 03/02. Recommend patient follow-up with PCP as outpatient to discuss further manage ment of her diabetes given not at goal currently. Hypertension Chronically managed on amlodipine 10 mg, enalapril 20 mg twice daily, Lasix 40 mg p.o daily. Held amlodipine (pedal edema), enalapril (RACHEL) on admission. Patient's high blood pressure most likely due to fluid overload, will reassess once properly diuresed. GERD IV Protonix 40 mg twice daily Asthma Well managed, on as needed inhalers. Last flare years ago. PFTs ordered to establish severity. Given Pneumovax. History of pulmonary embolus, chronic use of anticoagulation Chronically on warfarin. INR at goal range on admission. We will continue monitoring PT/INR during admission. Anxiety Continue home citalopram 40 mg daily Hyperlipidemia Continue home atorvastatin 40 mg daily. Code: Full code Dispo: Med-Surg FEN/GI: Carb consistent DVT Prophylaxis: Coumadin PT/OT: Yes Consults: None (2) RACHEL (acute kidney injury): (3) Type 2 diabetes mellitus: (4) HTN (hypertension): (5) Asthma: (6) GERD without esophagitis: (7) correction (current) use of anticoagulants: (8) Pulmonary embolism: (9) Sleep apnea with use of continuous positive airway pressure (CPAP): Admission and Anticipated Discharge Date Admission Date: March 01, 2023 Supervising Physician Co-Signing Physician Notes I personally examined the patient and verified all reeder points of history and exam, discussed case, and agree with decision making with Dr Rahman No shortness of breath at restjust dyspnea on exertion. Worse over the last month. Has gotten to where she cannot do laundry anymore (the laundry is in the basement she cannot walk up the steps due to dyspnea). No orthopnea. Does have a little bit of a dry cough that has been going on for about the same time per iod. Vitals noted, in general she is awake and alert pleasant no distress. HEENT normocephalic atraumatic mucous membranes moist. Breathing unlabored no accessory muscle use good effort. She does have faint diffuse wheezing and diminished air entry right worse than left. Skin shows no rashes no pallor or icterus. CBC, basic metabolic panel, chest x-ray, BNP noted Dyspnea on exertiondoubt decompensated CHF, suspect chest x-ray is false positive due to AP film and her body habitus, certainly is still on the differential, but more concerned from a cardiac standpoint about atypical angina, and from a pulmonary standpoint about truly pulmonary disease/OHS. Echocardiogram, spirometry, consider CT chest, consider stress testingcontinue to work this up stepwise but quickly. Is stable. Prior PEanticoagulated. Subjective Patient was seen bedside this morning. She states that she is feeling well at this time and is not currently having shortness of breath, though states that normally her shortness of breath happens when she is exerting herself. She does not fully exerted herself at this time so she is unsure if the shortness of breath has completely resolved. She states that she is no longer having orthopnea. In terms of reviewing past medical history, patient unsure if she truly has asthma but she is never officially been diagnosed. Review of Systems Review of Systems: All systems reviewed & are unremarkable except as noted in Subjective Physical Exam Constitutional: + morbidly obese; no acute distress Eyes: PERRL, conjunctivae normal, anicteric sclerae Respiratory: normal respiratory effort, lungs clear to auscultation Cardiovascular: Rate/Rhythm: regular rate Extremities: + edema (+2 pitting edema lower extremity) Gastrointestinal (Abdomen): normal bowel sounds, soft, nontender, no hepa tosplenomegaly Skin: no rashes, warm and dry Psychiatric: A+Ox3, euthymic affect Results & Data Results & Data Vital Signs (Past 12 Hours) Vital Signs Temp Pulse Pulse Resp BP BP Pulse Ox 03/02/23 05:55 20 03/02/23 05:41 148/79 H 03/02/23 03:35 22 91 03/01/23 23:43 03/01/23 23:43 36.3 C L 68 18 177/83 H 94 03/01/23 23:20 66 11 L 93 03/01/23 23:18 64 15 94 03/01/23 23:18 144/75 H 03/01/23 23:10 71 18 93 03/01/23 23:00 64 25 H 94 03/01/23 22:50 64 18 94 03/01/23 22:40 66 12 94 03/01/23 22:30 71 19 03/01/23 22:20 82 15 95 03/01/23 22:10 175/83 H 03/01/23 22:10 68 23 175/83 H 96 03/01/23 22:00 71 24 96 03/01/23 21:50 61 28 H 95 03/01/23 21:40 70 23 95 03/01/23 21:36 79 17 93 03/01/23 21:20 61 15 95 03/01/23 21:10 61 16 95 03/01/23 21:00 61 17 95 03/01/23 21:00 157/77 H 03/01/23 20:50 66 24 96 03/01/23 20:40 66 14 97 03/01/23 20:30 61 17 96 03/01/23 20:30 144/78 H 03/01/23 20:20 63 11 L 96 03/01/23 20:10 78 21 96 03/01/23 20:00 77 17 96 03/01/23 20:00 158/90 H 03/01/23 19:50 73 21 94 03/01/23 20:39 03/01/23 20:39 64 13 144/78 H 96 03/01/23 19:42 72 20 179/99 H 95 03/01/23 19:45 94 O2 Del Method 03/02/23 05:55 Room Air 03/02/23 05:41 03/02/23 03:35 03/01/23 23:43 Room Air 03/01/23 23:43 Room Air 03/01/23 23:20 03/01/23 23:18 03/01/23 23:18 03/01/23 23:10 03/01/23 23:00 03/01/23 22:50 03/01/23 22:40 03/01/23 22:30 03/01/23 22:20 03/01/23 22:10 03/01/23 22:10 03/01/23 22:00 03/01/23 21:50 03/01/23 21:40 03/01/23 21:36 03/01/23 21:20 03/01/23 21:10 03/01/23 21:00 03/01/23 21:00 03/01/23 20:50 03/01/23 20:40 03/01/23 20:30 03/01/23 20:30 03/01/23 20:20 03/01/23 20:10 03/01/23 20:00 03/01/23 20:00 03/01/23 19:50 03/01/23 20:39 Room Air 03/01/23 20:39 Room Air 03/01/23 19:42 03/01/23 19:45 Room Air (4) HTN (hypertension) Hypertension type: unspecified Qualified Code(s): I10 - Essential (primary) hypertension (5) Asthma Asthma complication type: uncomplicated Asthma persistence: intermittent Asthma severity: mild Qualified Code(s): J45.20 - Mild intermittent asthma, uncomplicated
[2023-03-02] MEDS: PANTOprazole 40 MG TAB PO SCH (08:13)
[2023-03-02] MEDS: ATORVASTATIN 40 MG TAB PO SCH (08:13)
[2023-03-02] MEDS: CETIRIZINE HCL 10 MG TABLET PO SCH (08:13)
[2023-03-02] MEDS: CALCIUM CITRATE 950 MG TAB PO SCH (08:13)
[2023-03-02] MEDS: CITALOPRAM 40 MG TAB PO SCH (08:13)
[2023-03-02] MEDS: ZINC SULFATE 220 MG CAPSULE PO SCH (08:13)
[2023-03-02] MEDS: FUROSEMIDE 40 MG/4 ML VIAL IV SCH (08:14)
[2023-03-02] MEDS: FLUTICASONE PROPIONATE NA SPR 16 GM BTL SCH (08:14)
[2023-03-02 08:36] LABS: Hematocrit (blood only) 42.7 % (37.0-47.0); Hemoglobin 14.4 g/dl (12.0-16.0); Mean Corpuscular Hemoglobin 29.8 pg (25.0-34.0); Mean Corpuscular Hgb Conc 33.7 g/dL (32.0-36.0); Mean Corpuscular Volume 88.2 fL (80.0-100.0); Platelet Count 166 K/uL (130-400); RDW Coefficient of Variation 13.7 % (11.5-14.5); Red Blood Count 4.84 M/uL (4.20-5.40); White Blood Count 5.66 K/ul (4.8-10.8)
[2023-03-02 08:50] LABS: Estimated Average Glucose 169 mg/dl; Hemoglobin A1C 7.5 % (4.5-5.6)
[2023-03-02] MEDS: LANTUS PER UNIT CHARGE SQ SCH (08:58)
[2023-03-02 08:59] LABS: BUN Creatinine Ratio 23.5 (10-20); Creatinine Clr Calc Pharmacy 61.8 ml/min; Est GFR (African American) 48.3 ml/min; Est GFR (Non-African American) 41.6 ml/min; Magnesium 1.8 mg/dl (1.7-2.4); Phosphorus 3.8 mg/dl (2.5-4.9); Potassium 4.4 mmol/L (3.5-5.1)
--- NOTE | 2023-03-02 11:03 | XRay Report ---
XR chest 1V portable CLINICAL HISTORY: Pleural effusion TECHNIQUE: Single frontal radiograph of the chest was obtained. Comparison: Comparison is made to chest radiograph 03/01/2023 FINDINGS: Exam is limited by underpenetration. Pacemaker is seen. Cardiomegaly is noted. There is prominence an d cephalization of the vasculature with Parminder B lines seen. No evidence of pleural effusion or pneum othorax. IMPRESSION: Cardiomegaly and moderate pulmonary edema. This appears somewhat increased from prior exam. ACT 112: Negative or not required by law. Electronically signed by: Nas Horton M.D. 03/02/2023 11:02 AM
--- NOTE | 2023-03-02 16:45 | XCELERA ---
[id number]
[2023-03-02] MEDS: WARFARIN SOD 7.5 MG TAB PO SCH (16:47)
--- NOTE | 2023-03-02 19:32 | Billing Data ---
Date of Service March 02, 2023 Coding Level of Care Code 31066 SUB INP/OBS CARE MIN
--- NOTE | 2023-03-02 21:11 | CT Scan Report ---
CT SCAN OF THE CHEST WITHOUT IV CONTRAST CLINICAL HISTORY: Dyspnea on exertion. COMPARISON STUDY: Chest CT dated 04/15/2016. Chest x-ray dated 03/02/2023. TECHNIQUE: CT scan of the thorax was performed from the thoracic inlet to the upper abdomen. Images are reviewed in the axial, sagittal, and coronal planes. IV contrast was not administered for this ex amination as per the referring clinician. A dose lowering technique was utilized adhering to the feliciano reddy of SHERRI. The examination is degraded by motion artifact, large body habitus, and by streak a rtifact from the body wall abutting the CT gantry. CT DOSE: 1226.96 mGy.cm FINDINGS: Thyroid: Markedly enlarged an heterogeneous thyroid goiter is similar to previous. Thoracic aorta: There is moderate atherosclerotic calcification of the thoracic aorta, which is lidia l in caliber and demonstrates 4-vessel variant arch anatomy. Heart: A pacemaker is present in the left chest wall. The heart is top normal in size and without per icardial effusion. Lungs and pleural spaces: Evaluation of the lung parenchyma is degraded by motion artifact. There is no airspace consolidation or pleural effusion. The trachea and central airways are clear. Hyperdense nodular pleural thickening is again seen throughout the right lung. This suggests previous pleurodesi s. Mediastinum: There is no mediastinal lymphadenopathy. Sara: Not well assessed without IV contrast. Axillae: There is no axillary lymphadenopathy. Upper abdomen: Partially visualized upper abdominal viscera is within normal limits. Skeletal structures: The skeletal structures are osteopenic. Degenerative change is noted throughout the thoracic spine. Arthritic change is seen in the shoulders. No lytic or blastic bony lesions are s een. IMPRESSION: 1. There is no airspace consolidation or pleural effusion. 2. Findings suggest previous right-sided pleurodesis. Correlate clinically. 3. Additional findings as above. ACT 112: Negative or not required by law. Electronically signed by: Eron Modi M.D. 03/02/2023 9:09 PM
[2023-03-03] MEDS: ALBUT/IPRATROP 3MG/0.5MG NEB 3 ML VIAL INH PRN (02:20)
--- NOTE | 2023-03-03 05:40 | Electrocardiogram Report ---
Test Reason : Blood Pressure : / mmHG Vent. Rate : 070 BPM Atrial Rate : 070 BPM P-R Int : 174 ms QRS Dur : 092 ms QT Int : 410 ms P-R-T Axes : 047 -46 096 degrees QTc Int : 442 ms Normal sinus rhythm Left axis deviation Low voltage QRS Anterior infarct T wave abnormality, consider lateral ischemia Abnormal ECG When compared with ECG of 31-MAR-2022 10:05, QRS axis Shifted left Confirmed by Zain Waterman ([id number]) on 03/03/2023 5:39:25 AM Referred By: REFERRED SELF Confirmed By:Zain Waterman
--- NOTE | 2023-03-03 06:16 | Billing Data ---
Date of Service March 03, 2023 Coding Level of Care Code 23062 INT INP/OBS CARE
--- NOTE | 2023-03-03 06:44 | Hospitalist Progress Note ---
Date of Service March 03, 2023 Assessment & Plan (1) Dyspnea on exertion: Plan: 67-year-old woman with history of type 2 diabetes with diabetic neuropathy, well-controlled asthma, and prior pulmonary embolism who presented to the hospital with worsening shortness of breath x1 month. Now admitted for further management of dyspnea on exertion. Dyspnea on exertion 1 month old. No prior episodes. No recent infections. Asthma is well controlled on as needed inhalers. Afebrile, no leukocytosis, no evidence of hypoxia or hypercapnia, breathing comfortably on room air. Troponin, BNP, within normal limits. Echo done on 03/02/2023 showed an EF of 60 to 65% and no significant change from prior study from 2016. May be related to patient's underlying asthma? Will order PFTs to confirm diagnosis. Most likely has a restrictive lung disease, does require CPAP at night for obstructive sleep apnea. Chest x-ray showed cardiomegaly and moderate pulmonary edema which was increased from chest x-ray on the day prior. CT of the chest did not show any pulmonary edema or pleural effusion. Did show thickening of the right lung. Initially started on IV Lasix 40 mg. We will switch back to 40 mg p.o. daily. Given the patient is most likely not in congestive heart failure. Daily I's and O's. We will continue home inhalers. PFTs ordered which showed a possible mixed or obstructive pattern. We will consult pulmonary to have evaluation of proper diagnosis and management. RACHEL Creatinine of 1.82 on admission (baseline 1.0-1.2). Enalapril, amlodipine held on admission. Has gone Lasix during this admission. Lasix DC'd on 03/03. Creatinine improved to 1.3 on 03/02. Daily BMPs. DM2 Chronically managed on 100 units of Lantus daily, with mealtime NovoLog SQ Lantus 65 units daily SSI NovoLog per protocol (CF-15; CR 5) ACHS glucose checks Hemoglobin A1c of 7.5 on 03/02. Recommend patient follow-up with PCP as outpatient to discuss further m anagement of her diabetes given not at goal currently. Hypertension Chronically managed on amlodipine 10 mg, enalapril 20 mg twice daily, Lasix 40 mg p.o daily. We will restart hypertensive meds at this time. GERD IV Protonix 40 mg twice daily Asthma Well managed, on as needed inhalers. Last flare years ago. Pulmonary consulted Given Pneumovax. History of pulmonary embolus, chronic use of anticoagulation Chronically on warfarin. INR at goal range on admission. We will continue monitoring PT/INR during admission. Anxiety Continue home citalopram 40 mg daily Hyperlipidemia Continue home atorvastatin 40 mg daily. 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 Discussed updates and findings. Vitals noted, in general she is in no distress. HEENT normocephalic atraumatic mucous membranes moist. Breathing unlabored no accessory muscle use good effort. Skin shows no rashes no pallor or icterus. CBC, INR, BMP, spirometry, chest CT all personally reviewed. Dyspnea on exertioneverything pointing far more towards pulmonary sourceI suspect a mixed picture restrictive from OHS, as well as may be a degree of obstructive given the obstructive pattern of her flow-volume loop and her FEV1/FVC ratio, as well as her wheezingbut that part is not entirely clear. We will ask pulmonary for their input on the exact etiology of her breathingi.e. is it purely OHS, or is there a degree of an asthmatic/obstructive component? Additionally, I will appreciate their expertise on reviewing her CPAPwhether or not it is set adequately. Otherwise as above Subjective Patient seen bedside this morning. States that she has been wheezing and coughing. States that when she lays down her wheezing gets worse. She does state that the nebulizer helped her for a bit but then the wheezing returned. She also states that she is having some dark urine as well. Review of Systems Review of Systems: All systems reviewed & are unremarkable except as noted in Subjective Physical Exam Constitutional: + morbidly obese; no acute distress Eyes: PERRL, conjunctivae normal, anicteric sclerae Respiratory: normal respiratory effort Auscultation: + wheezes; no rales and no rhonchi Cardiovascular: Rate/Rhythm: regular rate Extremities: + edema (+2 pitting edema lower extremity) Gastrointestinal (Abdomen): normal bowel sounds, soft, nontender, no hepatosplenomegaly Skin: no rashes, warm and dry Psychiatric: A+Ox3, euthymic affect Results & Data Results & Data Vital Signs (Past 12 Hours) Vital Signs Temp Pulse Resp BP Pulse Ox O2 Del Method 03/03/23 02:20 89 22 91 Room Air 03/02/23 23:00 36.6 C 73 18 147/72 H 92 Room Air 03/02/23 22:19 Room Air Resident Activity Tracking Resident Involvement: Resident Care Provided Care Provided: Adult Hospital Medicine (4) HTN (hypertension) Hypertension type: unspecified Qualified Code(s): I10 - Essential (primary) hypertension (5) Asthma Asthma complication type: uncomplicated Asthma persistence: intermittent Asthma severity: mild Qualified Code(s): J45.20 - Mild intermittent asthma, uncomplicated
[2023-03-03] MEDS: CALCIUM CITRATE 950 MG TAB PO SCH (08:27)
[2023-03-03] MEDS: CETIRIZINE HCL 10 MG TABLET PO SCH (08:27)
[2023-03-03] MEDS: ATORVASTATIN 40 MG TAB PO SCH (08:27)
[2023-03-03] MEDS: PANTOprazole 40 MG TAB PO SCH (08:27)
[2023-03-03] MEDS: ZINC SULFATE 220 MG CAPSULE PO SCH (08:27)
[2023-03-03] MEDS: CITALOPRAM 40 MG TAB PO SCH (08:27)
[2023-03-03] MEDS: FLUTICASONE PROPIONATE NA SPR 16 GM BTL SCH (08:28)
[2023-03-03] MEDS: LANTUS PER UNIT CHARGE SQ SCH (08:28)
[2023-03-03] MEDS: FUROSEMIDE 40 MG/4 ML VIAL IV SCH (08:28)
[2023-03-03] MEDS ORDERED: ALBUT/IPRATROP 3MG/0.5MG NEB 3 ML VIAL NEB STA (08:44)
--- NOTE | 2023-03-03 09:12 | XRay Report ---
XR chest 1V portable HISTORY: Follow-up right Pleural effusion COMPARISON: Chest CT 03/02/2023. Chest 03/02/2023. FINDINGS: No pneumothorax. Stable blunting of the right lateral costophrenic sulcus. No definite pleu ral effusions. The heart is normal in size. Left-sided dual-chamber pacemaker. Advanced degenerative changes again noted within the right shoulder. No evidence for pulmonary edema. Hazy appearance to th e periphery of the right lung persists and likely corresponds to the pleural density/pleurodesis on t he prior chest CT. IMPRESSION: No significant change compared to the prior study. No acute process. ACT 112: Negative or not required by law. Electronically signed by: Tylor Phillip M.D. 03/03/2023 9:10 AM
[2023-03-03 09:14] LABS: Hematocrit (blood only) 43.2 % (37.0-47.0); Hemoglobin 14.6 g/dl (12.0-16.0); Mean Corpuscular Hemoglobin 30.2 pg (25.0-34.0); Mean Corpuscular Hgb Conc 33.8 g/dL (32.0-36.0); Mean Corpuscular Volume 89.4 fL (80.0-100.0); Mean Platelet Volume 12.2 fL (9.4-12.4); Platelet Count 170 K/uL (130-400); RDW Coefficient of Variation 13.8 % (11.5-14.5); RDW Standard Deviation 45.1 fL (36.4-46.3); Red Blood Count 4.83 M/uL (4.20-5.40); White Blood Count 4.64 K/ul (4.8-10.8)
[2023-03-03 09:32] LABS: BUN Creatinine Ratio 25.9 (10-20); Calcium 9.2 mg/dl (8.6-10.3); Creatinine Clr Calc Pharmacy 58.7 ml/min; Est GFR (African American) 45.3 ml/min; Est GFR (Non-African American) 39.1 ml/min; INR 2.2 (0.9-1.1); Magnesium 1.9 mg/dl (1.7-2.4); Phosphorus 3.9 mg/dl (2.5-4.9); Potassium 4.2 mmol/L (3.5-5.1); Prothrombin Time 22.4 Seconds (9.0-12.0)
[2023-03-03] MEDS: INSULIN ASPART PER UNIT CHARGE SC SCH ×4 (09:42→20:31)
[2023-03-03] MEDS: WARFARIN SOD 7.5 MG TAB PO SCH (16:33)
--- NOTE | 2023-03-03 16:37 | Pulmonary Consultation ---
Date of Consultation March 03, 2023 Assessment & Plan (1) Sleep apnea with use of continuous positive airway pressure (CPAP): (2) Dyspnea on exertion: (3) COPD (chronic obstructive pulmonary disease): (4) Abnormal chest CT: (5) Asthma: Asthma complication type: uncomplicated Asthma persistence: intermittent Asthma severity: mild Qualified Code(s): J45.20 - Mild intermittent asthma, uncomplicated (6) Tracheal deviation: Plan CT chest 03/02/2023 personally reviewed: Enlarged right thyroid lobe with tracheal deviation to the left Nodularity appreciated in the right fissure as well as the right pleura (unchanged 03/2016) No significant mediastinal lymphadenopathy 2D echo 03/02/2023: EF 60-65%, moderate concentric LVH, grade 2 diastolic dysfunction, RV not visualized Spirometry 03/03/2023: Moderate obstructive lung dysfunction FEV1 1.32 L 50%, FVC 2.06 L 60%, FEV1/FVC 64% -- Shortness of breath Multifactorial BMI 50 Obstruction on the PFT Likely pulmonary hypertension from DAVID and obesity Grade 2 diastolic dysfunction BNP 26 --Asthma Moderate obstruction Patient likely has restrictive component as well from underlying obesity Only on Albuterol as needed right now On discharge would recommend Symbicort 80-4.5 mcg 2 puffs twice a day -- DAVID Continue with CPAP -- Abnormal chest CT Nodularity on the right-sided pleural is most likely from pleurodesis which was done approximately 7 years ago Does not need any further follow-up --History of PE On warfarin --Morbid obesity Advised to lose with diet and exercise Incentive spirometry -- Likely pulmonary hypertension Likely combination of type II and type III Right ventricle was not visualized on the echo -- Tracheal deviation to the left Patient does have significant enlarged right side of the thyroid There is no stridor on the physical exam Flow-volume loop does not show any fixed obstruction Plan: Diuresis as tolerated Start the patient on Brovana and budesonide. On discharge would recommend Symbicort 80-4.5 mcg 2 puffs twice a day Continue with CPAP Incentive spirometry will be beneficial Case was discussed with primary team Please note the above document was generated using voice recognition software. It may contain grammatical, syntax or spelling errors.Any formal questions or concerns about the content, text or information contained within the body of this dictation should be directly addressed to the provider for clarification. History of Present Illness Attending Physician: Charlie Roper DO History of Present Illness 67-year-old female present to the hospital with complaints of worsening shortness of breath Past medical history: Diabetes type 2, asthma, history of pulmonary embolism. DAVID on CPAP Pulmonary consulted for the same At the time of examination patient was having her dinner She said that she has been having worsening shortness of breath which has been going on for approximately 1-2 months It is mostly on exertion associated with chest tightness and wheezing. Denies any chest pain, no dizziness, no palpitation, no diaphoresis at that time. Going up the stairs is also where she gets short of breath. Denies any unintentional weight loss. She has actually gained approximately 10- 15 pounds in the last 6 months or so. She does have sleep apnea and has been compliant with her sleep apnea machine Does complain of cough bringing up clear phlegm. Denies any hemoptysis. 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 Allergies Allergy/AdvReac Type Severity Reaction Status Date / Time Penicillins Allergy Intermediate HIVES Verified 03/01/23 19:49 benzocaine Allergy Mild water Verified 03/01/23 19:49 blisters fenofibrate AdvReac Intermediate diarrhea Verified 03/01/23 19:49 morphine AdvReac Intermediate vomiting Verified 03/01/23 19:49 WHEAT/GLUTEN Allergy Intermediate CELIAC Uncoded 03/01/23 19:49 DISEASE--GI UPSET Home Medications Medication Instructions Recorded Confirmed Type lancets 33 gauge (OneTouch Dellydia #100 ea 07/02/19 03/01/23 Rx Lancets) ipratropium 0.5 mg-albuterol 3 mg 3 ml inhalation Q6H PRN Shortness 09/13/19 03/01/23 History (2.5 mg base)/3 mL nebulization Of Breath #180 mL soln calcium citrate 200 mg (950 mg) 200 mg PO DAILY 11/02/21 03/01/23 History tablet amlodipine 10 mg tablet 10 mg PO PM #90 tabs 12/30/21 03/01/23 Rx vitamin B complex 1 tab PO DAILY 01/25/22 03/01/23 History insulin syringes (disposable) 1 mL #300 ea 01/26/22 03/01/23 Rx blood sugar diagnostic (OneTouch #100 ea 04/01/22 03/01/23 Rx Verio test strips) enalapril maleate 20 mg tablet 20 mg PO BID #180 tabs 06/28/22 03/01/23 Rx cetirizine 10 mg tablet 10 mg PO DAILY #30 tabs 08/30/22 03/01/23 Rx fluticasone propionate 50 2 spray intranasal DAILY #48 grams 09/20/22 03/01/23 Rx mcg/actuation nasal spray,suspension furosemide 40 mg tablet 40 mg PO DAILY #90 tabs 10/04/22 03/01/23 Rx atorvastatin 40 mg tablet (Lipitor) 40 mg PO DAILY #90 tabs 10/21/22 03/01/23 Rx citalopram 40 mg tablet (Celexa) 40 mg PO DAILY #90 tabs 11/24/22 03/01/23 Rx pantoprazole 40 mg tablet,delayed 40 mg PO DAILY #90 tabs 12/10/22 03/01/23 Rx release (Protonix) insulin glargine 100 unit/mL (3 100 unit subcut DAILY 90 days #90 01/28/23 03/01/23 Rx mL) subcutaneous pen (Basaglar mL KwikPen U-100 Insulin) albuterol sulfate 90 mcg/actuation 2 puff inhalation Q4H PRN 02/21/23 03/01/23 Rx aerosol inhaler (Ventolin HFA) Shortness Of Breath #18 grams insulin aspart U-100 100 unit/mL 120 unit (1.2 mL) subcut DAILY 30 02/23/23 03/01/23 Rx subcutaneous solution (Novo days #40 mL U-100 Insulin aspart) albuterol sulfate 1.25 mg/3 mL 1.25 mg (3 mL) inhalation QID PRN 02/24/23 03/01/23 Rx solution for nebulization shortness of breath or wheezing #75 mL omega-3 fatty acids 1,000 mg 1,000 mg PO DAILY 03/01/23 03/01/23 History capsule warfarin 10 mg tablet 5 mg PO 2XWK 03/01/23 03/01/23 History warfarin 7.5 mg tablet 7.5 mg PO 5XWK 03/01/23 03/01/23 History zinc gluconate 50 mg tablet 50 mg PO DAILY 03/01/23 03/01/23 History levalbuterol HCl 0.63 mg/3 mL 0.63 mg (3 mL) inhalation TID PRN 03/03/23 Rx solution for nebulization shortness of breath or wheezing #75 mL Patient History Medical History Carpal tunnel syndrome Chronic venous insufficiency Diabetic neuropathy Factor V Leiden mutation Frequent UTI Hepatic steatosis Lumbago Lyme disease Microalbuminuria due to type 2 diabetes mellitus Morbid obesity Multinodular goiter Other specified disorders of adrenal glands Pulmonary embolism Renal cyst Secondary hyperparathyroidism Type 2 diabetes mellitus Surgical History H/O cardiac catheterization H/O total adrenalectomy History of carpal tunnel release of both wrists History of hysterectomy History of lumbar laminectomy Pacemaker Status post laser ablation of incompetent vein (07/16/20) Family History Father Diabetes Hypertension Lung disease Sister Lung cancer Denies family history of Ovarian cancer Prostate cancer Coronary heart disease Heart disease Myocardial infarction Breast cancer Colorectal cancer Social History Smoking Status: Former smoker Tobacco Type: Cigarettes Age Started Using Tobacco: 16; Age Quit Using Tobacco: 28; packs per day: 0.5; Second Hand Exposure: No; Hx Alcohol Use: No Hx Substance Use: No Preferred Language: Vietnamese Communication Ability: Effective Visual Impairment: No Limitations Hearing Ability: Normal Leader Tier Required: No Beliefs That Will Affect Care: None marital status: Current Living Situation: Spouse current occupational status: retired 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 How many Children do You have: 2 Feels Safe at Home: Yes Childhood Exposure to Second-Hand Smoke: Yes caffeine: Yes during the past year weight has: remained stable Dental Care, Regularly: No Physical Activity Frequency: Does not Exercise Seatbelt Use: always Sunscreen Use: Yes Assistive Devices: Cane and CPAP Review of Systems 2 Review of Systems: All systems reviewed & are unremarkable except as noted in HPI & below Physical Exam Physical Exam: Constitutional: No acute distress HEENT: EOMI, PERRLA, enlarge right side of the thyroid, no stridor Respiratory system: Decreased air entry bilaterally, no rhonchi, no crackles, minimal expiratory wheeze CVS: S1-S2 positive, no murmurs or gallops, distant heart sounds Abdomen: Soft, nontender, nondistended, positive bowel sounds x4, obese Extremities: +2 pulses bilaterally radialis/ dorsalis pedis, no cyanosis, +2 pitting edema bilateral lower extremity Neuro: Awake alert oriented x3 Psych: Normal mood and affect G/U: No [place] Skin: no rashes, warm and dry Lymphatic: no cervical or axillary lymphadenopathy Results & Data Results & Data Vital Signs (Past 12 Hours) Vital Signs Temp Pulse Pulse Resp BP BP Pulse Ox 03/03/23 15:16 36.4 C L 85 18 146/78 H 96 03/03/23 08:00 03/03/23 09:07 84 18 95 03/03/23 07:07 36.4 C L 71 18 159/74 H 94 O2 Del Method 03/03/23 15:16 Room Air 03/03/23 08:00 Room Air 03/03/23 09:07 Room Air 03/03/23 07:07 Room Air Laboratory Results 03/03/23 08:37 03/03/23 08:37 PG Care Time/CCT Total # of Minutes Spent Total Time Spent with Patient: Total time spent is greater than 50% in coordination of care (as documented) at patient's floor/unit and/or counseling patient: Coding Level of Care Code 65102 INT INP/OBS CARE 3/75MIN Diagnoses Sleep apnea with use of continuous positive airway pressure (CPAP) G47.30 Dyspnea on exertion R06.09 COPD (chronic obstructive pulmonary disease) J44.[address] R93.89 Asthma J45.20 Asthma complication type: uncomplicated Asthma persistence: intermittent Asthma severity: mild Tracheal deviation J39.8
[2023-03-03] MEDS ORDERED: WARFARIN SOD 7.5 MG TAB PO SCH (17:30)
--- NOTE | 2023-03-03 18:35 | Billing Data ---
Date of Service March 03, 2023 Coding Level of Care Code 88821 SUB INP/OBS CARE MIN
[2023-03-03] MEDS: FORMOTEROL 20 MCG/2 ML VIAL NEB SCH (20:00)
[2023-03-03] MEDS: BUDESONIDE 0.25 MG/2 ML VIAL (PULMICORT) NEB SCH (20:00)
[2023-03-03] MEDS: ENALAPRIL MALEATE 10 MG TAB PO SCH (20:31)
[2023-03-03] MEDS ORDERED: amLODIPine BESYLATE 5 MG TAB PO SCH (21:00)
--- NOTE | 2023-03-04 07:11 | Discharge Summary ---
Date of Service March 04, 2023 Admission HPI Per Admitting Provider Sofia is a 67-year-old woman with a past medical history of asthma (as needed rescue inhalers, no daily maintenance therapy), T2DM, diabetic neuropathy, and previous pulmonary embolism who presented to the emergency room today from clinic with worsening dyspnea on exertion x1 month. Patient was initially treated outpatient for cough and shortness of breath but continued to report dyspnea on exertion (with walking) at outpatient follow-up this afternoon. She was then sent to the emergency room. She denies any incidence of chest pain, shortness of breath at rest, recent illness, abdominal pain, dizziness, or sy ncope. ROS + paroxysmal nocturnal dyspnea x1 month, and bilateral pedal edema. In the ED, vitals were notable for BPs in the 140s-160s systolic/70s-90s diastolic. Labs are notable for PT-22.2, INR-2.2 (patient is chronically on Coumadin, INR within goal range), PTT-37.4. CBC completely normal. CMP revealed creatinine of 1.82, which improved to 1.64 hours later. Glucose elevated at 204, but improved to 136. Transaminases, LFTs all within normal limits. Initial troponin negative. BNP-31. CXR showed cardiomegaly with pulmonary vascular congestion. She received a dose of IV Lasix 40 mg x 1 and attending hospitalist was contacted for admission. On admission, patient is resting comfortably on room air. She continues to report dyspnea with walking to and from the restroom, which is about 10 to 12 feet away from bedside. She continues to deny shortness of breath at rest. Though she has a history of asthma, she has not used any of her as needed inhalers for several years now. She admits to history of smoking but stopped almost 40 years ago. She denies med nonadherence. Principal Diagnosis Dyspnea on exertion Discharge Exam Constitutional + morbidly obese; no acute distress Eyes PERRL, conjunctivae normal, anicteric sclerae Respiratory normal respiratory effort, lungs clear to auscultation Auscultation: no rales, no rhonchi and no wheezes Cardiovascular Rate/Rhythm: regular rate Extremities: + edema (+2 pitting edema lower extremity) Gastrointestinal (Abdomen) normal bowel sounds, soft, nontender, no hepatosplenomegaly Skin no rashes, warm and dry Psychiatric A+Ox3, euthymic affect Discharge Data Allergies Allergy/AdvReac Type Severity Reaction Status Date / Time Penicillins Allergy Intermediate HIVES Verified 03/01/23 19:49 benzocaine Allergy Mild water Verified 03/01/23 19:49 blisters fenofibrate AdvReac Intermediate diarrhea Verified 03/01/23 19:49 morphine AdvReac Intermediate vomiting Verified 03/01/23 19:49 WHEAT/GLUTEN Allergy Intermediate CELIAC Uncoded 03/01/23 19:49 DISEASE--GI UPSET Consultations 03/01/23 20:54 ED Decision to Admit Stat 03/03/23 16:09 Consult Pulmonology Routine Ordered Studies Abnormal lab results 03/03/23 03/03/23 03/04/23 Range/Units 17:05 20:01 07:46 PT (9.0-12.0) Seconds INR (0.9-1.1) BUN 39 H (6-23) mg/dl Creatinine 1.42 H (0.6-1.2) mg/dl BUN/Creatinine Ratio 27.5 H (10-20) Glucose 170 H (70-99(Fasting)) mg/dl POC Glucose 121 H 147 H (70-99) mg/dl 03/04/23 03/04/23 03/04/23 Range/Units 07:46 08:31 12:16 PT 25.1 H (9.0-12.0) Seconds INR 2.5 H (0.9-1.1) BUN (6-23) mg/dl Creatinine (0.6-1.2) mg/dl BUN/Creatinine Ratio (10-20) Glucose (70-99(Fasting)) mg/dl POC Glucose 157 H 164 H (70-99) mg/dl Chest X-Ray 03/01/23 15:30 SINGLE VIEW CHEST CLINICAL HISTORY: Dyspnea. FINDINGS: 2 AP, portable, upright chest radiographs are compared to study dated 05/15/2020 and correlated with chest CT dated 04/15/2016. A 2-lead cardiac pacemaker is unchanged in position and partially obscures the left upper chest. The heart is enlarged and noting atherosclerotic calcification of the thoracic aorta. There is pulmonary vascular congestion. Scarring/atelectasis is noted at the lung bases. No large pleural effusion or pneumothorax is seen. The skeletal structures are osteopenic. The bony thorax is grossly intact. IMPRESSION: 1. Cardiomegaly and cardiac pacemaker with pulmonary vascular congestion. 2. No airspace consolidation or large pleural effusion is identified. ACT 112: Negative or not required by law. Electronically signed by: Eron Modi M.D. 03/01/2023 4:26 PM Chest X-Ray 03/02/23 01:11 XR chest 1V portable CLINICAL HISTORY: Pleural effusion TECHNIQUE: Single frontal radiograph of the chest was obtained. Comparison: Comparison is made to chest radiograph 03/01/2023 FINDINGS: Exam is limited by underpenetration. Pacemaker is seen. Cardiomegaly is noted. There is prominence and cephalization of the vasculature with Parminder B lines seen. No evidence of pleural effusion or pneumothorax. IMPRESSION: Cardiomegaly and moderate pulmonary edema. This appears somewhat increased from prior exam. ACT 112: Negative or not required by law. Electronically signed by: Nas Horton M.D. 03/02/2023 11:[address] 03/02/23 19:28 CT SCAN OF THE CHEST WITHOUT IV CONTRAST CLINICAL HISTORY: Dyspnea on exertion. COMPARISON STUDY: Chest CT dated 04/15/2016. Chest x-ray dated 03/02/2023. TECHNIQUE: CT scan of the thorax was performed from the thoracic inlet to the upper abdomen. Images are reviewed in the axial, sagittal, and coronal planes. IV contrast was not administered for this examination as per the referring clinician. A dose lowering technique was utilized adhering to the principles of ALARA. The examination is degraded by motion artifact, large body habitus, and by streak artifact from the body wall abutting the CT gantry. CT DOSE: 1226.96 mGy.cm FINDINGS: Thyroid: Markedly enlarged an heterogeneous thyroid goiter is similar to previous. Thoracic aorta: There is moderate atherosclerotic calcification of the thoracic aorta, which is normal in caliber and demonstrates 4-vessel variant arch anatomy. Heart: A pacemaker is present in the left chest wall. The heart is top normal in size and without pericardial effusion. Lungs and pleural spaces: Evaluation of the lung parenchyma is degraded by motion artifact. There is no airspace consolidation or pleural effusion. The trachea and central airways are clear. Hyperdense nodular pleural thickening is again seen throughout the right lung. This suggests previous pleurodesis. Mediastinum: There is no mediastinal lymphadenopathy. Sara: Not well assessed without IV contrast. Axillae: There is no axillary lymphadenopathy. Upper abdomen: Partially visualized upper abdominal viscera is within normal limits. Skeletal structures: The skeletal structures are osteopenic. Degenerative change is noted throughout the thoracic spine. Arthritic change is seen in the shoulders. No lytic or blastic bony lesions are seen. IMPRESSION: 1. There is no airspace consolidation or pleural effusion. 2. Findings suggest previous right-sided pleurodesis. Correlate clinically. 3. Additional findings as above. ACT 112: Negative or not required by law. Electronically signed by: Eron Modi M.D. 03/02/2023 9:09 PM Chest X-Ray 03/03/23 01:11 XR chest 1V portable HISTORY: Follow-up right Pleural effusion COMPARISON: Chest CT 03/02/2023. Chest 03/02/2023. FINDINGS: No pneumothorax. Stable blunting of the right lateral costophrenic sulcus. No definite pleural effusions. The heart is normal in size. Left-sided dual-chamber pacemaker. Advanced degenerative changes again noted within the right shoulder. No evidence for pulmonary edema. Hazy appearance to the periphery of the right lung persists and likely corresponds to the pleural density/pleurodesis on the prior chest CT. IMPRESSION: No significant change compared to the prior study. No acute process. ACT 112: Negative or not required by law. Electronically signed by: Tylor Phillip M.D. 03/03/2023 9:10 AM 03/02/23 19:28 CT chest diagnostic wo con Routine Hospital Course (1) Dyspnea on exertion: 67-year-old woman with history of type 2 diabetes with diabetic neuropathy, well-controlled asthma, and prior pulmonary embolism who presented to the hospital with worsening shortness of breath x1 month. Now admitted for further management of dyspnea on exertion. Dyspnea on exertion 1 month old. No prior episodes. No recent infections. Asthma is well controlled on as needed inhalers. Afebrile, no leukocytosis, no evidence of hypoxia or hypercapnia, breathing comfortably on room air. Troponin, BNP, within normal limits. Echo done on 03/02/2023 showed an EF of 60 to 65% and no significant change from prior study from 2016. May be related to patient's underlying asthma? Will order PFTs to confirm diagnosis. Most likely has a restrictive lung disease, does require CPAP at night for obstructive sleep apnea. Chest x-ray showed cardiomegaly and moderate pulmonary edema which was increased from chest x-ray on the day prior. CT of the chest did not show any pulmonary edema or pleural effusion. Did show thickening of the right lung. Initially started on IV Lasix 40 mg. We will switch back to 40 mg p.o. daily. Given the patient is most likely not in congestive heart failure. We will continue home inhalers. PFTs ordered which showed a possible mixed or obstructive pattern. We will consult pulmonary to have evaluation of proper diagnosis and management. Mild intermittent persistent asthma with moderate obstruction. Wanted to discharge on Symbicort 2 puffs twice a day. We will start her on Advair instead of Symbicort due to cost. Start Advair 2 puffs twice a day. RACHEL Creatinine of 1.82 on admission (baseline 1.0-1.2). Enalapril, amlodipine held on admission. Has gone Lasix during this admission. Creatinine improved to 1.3 on 03/02. DM2 Chronically managed on 100 units of Lantus daily, with mealtime NovoLog SQ Lantus 65 units daily SSI NovoLog per protocol (CF-15; CR 5) ACHS glucose checks Hemoglobin A1c of 7.5 on 03/02. Recommend patient follow-up with PCP as outpatient to discuss further management of her diabetes given not at goal currently. Hypertension Chronically managed on amlodipine 10 mg, enalapril 20 mg twice daily, Lasix 40 mg p.o daily. Restart hypertensive medications prior to discharge GERD IV Protonix 40 mg twice daily Asthma Well managed, on as needed inhalers. Last flare years ago. Pulmonary consulted As above. Started on Advair 2 puffs twice a day with rescue albuterol inhaler Given Pneumovax. History of pulmonary embolus, chronic use of anticoagulation Chronically on warfarin. INR at goal range on admission. We will continue monitoring PT/INR during admission. Anxiety Continue home citalopram 40 mg daily Hyperlipidemia Continue home atorvastatin 40 mg daily. Code: Full code Dispo: Med-Surg FEN/GI: Carb consistent DVT Prophylaxis: Coumadin PT/OT: Yes Consults: None (2) RACHEL (acute kidney injury): (3) Type 2 diabetes mellitus: (4) HTN (hypertension): (5) Asthma: (6) GERD without esophagitis: (7) terminal carman (current) use of anticoagulants: (8) Pulmonary embolism: (9) Sleep apnea with use of continuous positive airway pressure (CPAP): Total Time Total Time Spent Total Time Spent (In Minutes): Less than 30-minute Discharge Plan Discharge Items Patient Disposition: Home - Self-Care Reason For Visit: SHORTNESS OF BREATH Discharge Diagnosis: Dyspnea on exertion Activity: Resume your previous activity Non-emergency contact: Primary Care Provider Call non-emergency contact if: you have any medication questions, your pain is unusual for you and your temperature is above 101.5 Follow-up/Referrals: Gordo Peng CRNP [Primary Care Provider] - 03/14/23 10:00 am (In 1 to 2 weeks) Diet: Carb Consistent or DM2 Addtl Attending Provider Instructions: You were admitted to the hospital for dyspnea on exertion you were treated with breathing treatments and incentive spirometry. A discharge summary will be sent to your primary care physician to ensure continuity of care. Please bring this discharge summary with you to your next office appointment so that your provider can review it at that time. Follow-up appointments: * We have requested a follow-up appointment with your primary care physician within one week of discharge. Please call their office if you do not hear from them. Their number is [phone]. * Keep all your follow-up appointments as already scheduled. If you cannot make an appointment, notify your provider. Medications: Your medication list has been reviewed and reconciled upon discharge to ensure accuracy and continuity of care. An updated list of all your medications is included with your hospital discharge paperwork. Please review this list closely, and make note of any changes. * We sent a new medication called Symbicort to your pharmacy. Take Symbicort (80-4.5mcg ) 2 puffs twice a day. * If you have any issues filling these prescriptions, please call [phone] and ask to leave a message for Dr. Rahman. * Take your medications as instructed; do not skip a dose of your medicines. Make sure all of your doctors know every medicine you are taking (including o [id number] medicines, vitamins, and supplements). Call your primary care provider before taking any new medicines (including over- the-counter medicines, vitamins, and supplements), because some of these may interact with your current medications, or may make your symptoms worse. Tell your primary care provider if you cannot afford your medications. CONTACT YOUR PRIMARY CARE PROVIDER if you experience any of the following: * Worsening of symptoms * Fever, chills, or fatigue * Difficulty following your treatment plan, or difficulty taking medications CALL 911 OR GO TO THE EMERGENCY DEPARTMENT if you experience any of the following: * Sudden, severe abdominal pain or nausea/vomiting * Severe chest pain, or chest pain that radiates (moves) to your jaw or arm * Sudden, severe shortness of breath or difficulty breathing Thank you for allowing us to participate in your care. Pending Studies at Discharge: No Stand-Alone Forms: My [facility], Smoking Cessation Medications and DC Order Prescriptions: New budesonide-formoterol [Symbicort] 80-4.5 mcg/actuation HFA aerosol inhaler 2 inh inhalation BID Qty: 10.2 0RF fluticasone propion-salmeterol [Advair HFA] 115-21 mcg/actuation HFA aerosol inhaler 2 inh inhalation BID Qty: 12 0RF Continued calcium citrate 200 mg (950 mg) tablet 200 mg PO DAILY amlodipine 10 mg tablet 10 mg PO PM Qty: 90 3RF (DME) insulin syringes (disposable) 1 mL syringe See Rx Instructions .Route Qty: 300 2RF Rx Instructions: use for each injection at AM, afternoon, PM - 1 ml; 31G x 8" enalapril maleate 20 mg tablet 20 mg PO BID Qty: 180 3RF cetirizine 10 mg tablet 10 mg PO DAILY Qty: 30 11RF fluticasone propionate 50 mcg/actuation spray,suspension 2 spray intranasal DAILY Qty: 48 2RF Rx Instructions: administer into each nostril atorvastatin [Lipitor] 40 mg tablet 40 mg PO DAILY Qty: 90 1RF citalopram [Celexa] 40 mg tablet 40 mg PO DAILY Qty: 90 3RF pantoprazole [Protonix] 40 mg tablet,delayed release (DR/EC) 40 mg PO DAILY Qty: 90 1RF insulin glargine [Basaglar KwikPen U-100 Insulin] 100 unit/mL (3 mL) insulin pen 100 unit SQ DAILY 90 Days Qty: 90 1RF Rx Instructions: Inject 40 units in the AM and 60 units in the PM; TDD 100 units albuterol sulfate [Ventolin HFA] 90 mcg/actuation HFA aerosol inhaler 2 puff INH Q4H PRN (Reason: Shortness Of Breath) Qty: 18 6RF insulin aspart U-100 [Novolog U-100 Insulin aspart] 100 unit/mL solution 120 unit subcut DAILY 30 Days Qty: 40 2RF Rx Instructions: Inject with meals; TDD 120 units albuterol sulfate 1.25 mg/3 mL solution for nebulization 1.25 mg inhalation QID PRN (Reason: shortness of breath or wheezing) Qty: 75 5RF Rx Instructions: dx code: j45.20 levalbuterol HCl 0.63 mg/3 mL solution for nebulization 0.63 mg inhalation TID PRN (Reason: shortness of breath or wheezing) Qty: 75 2RF (DME) lancets [OneTouch Delica Lancets] 33 gauge misc See Dose Instructions .ROUTE .MEDSUPPLY Qty: 100 0RF Dose Instruction: As directed Rx Instructions: use 3 daily to test blood sugars ipratropium-albuterol 0.5 mg-3 mg(2.5 mg base)/3 mL solution for nebulization 3 ml inhalation Q6H PRN (Reason: Shortness Of Breath) Qty: 180 (DME) OneTouch Verio test strips Strip See Dose Instructions .ROUTE .MEDSUPPLY Qty: 100 5RF Dose Instruction: As directed Rx Instructions: use 3 strips daily to test blood sugars vitamin B complex Tablet 1 tab PO DAILY furosemide 40 mg tablet 40 mg PO DAILY Qty: 90 1RF omega-3 fatty acids 1,000 mg Capsule 1,000 mg PO DAILY zinc gluconate 50 mg Tablet 50 mg PO DAILY warfarin 10 mg tablet 5 mg PO 2XWK Protocol: Dose Management Condition: Tuesday Dose/Route: 7.5 mg Instruction: 1 x 7.5 mg tablet Condition: Tuesday Dose/Route: 5 mg Instruction: 0.5 x 10 mg tablets Condition: Tuesday Dose/Route: 5 mg Instruction: 0.5 x 10 mg tablets Condition: Tuesday Dose/Route: 7.5 mg Instruction: 1 x 7.5 mg tablet Condition: Dose/Route: 7.5 mg Instruction: 1 x 7.5 mg tablet Condition: Tuesday Dose/Route: 7.5 mg Instruction: 1 x 7.5 mg tablet Condition: Tuesday Dose/Route: 5 mg Instruction: 0.5 x 10 mg tablets Protocol Text: Adjustment Start Date: Tuesday10/06/22 INR Value: 2.2 INR Date: 10/04/22 Recheck Date: 10/20/22 Rx Instructions: TAKES TUESDAY & SATURDAYS PER PT. warfarin 7.5 mg tablet 7.5 mg PO [id number] Protocol: Dose Management Condition: Tuesday Dose/Route: 7.5 mg Instruction: 1 x 7.5 mg tablet Condition: Tuesday Dose/Route: 5 mg Instruction: 0.5 x 10 mg tablets Condition: Tuesday Dose/Route: 5 mg Instruction: 0.5 x 10 mg tablets Condition: Tuesday Dose/Route: 7.5 mg Instruction: 1 x 7.5 mg tablet Condition: Dose/Route: 7.5 mg Instruction: 1 x 7.5 mg tablet Condition: Tuesday Dose/Route: 7.5 mg Instruction: 1 x 7.5 mg tablet Condition: Tuesday Dose/Route: 5 mg Instruction: 0.5 x 10 mg tablets Protocol Text: Adjustment Start Date: Tuesday10/06/22 INR Value: 2.2 INR Date: 10/04/22 Recheck Date: 10/20/22 Rx Instructions: TAKES TUE, TUE, TUE, , & TUE. PER PT. Discharge Orders: Discharge Order (Routine); Ordered 03/04/23 Ordered By: Eron Gaona/Other Patient Handouts: Managing Type 2 Diabetes, Special Foot Care for Diabetes Admission Data Admit Date/Time: 03/01/23 21:34 Attending Provider: Charlie Roper Admit Provider: Daniel Garcia Primary Care Provider: Gordo Peng Other Providers: Esa Jackman ; Eron Guzman ; Cam Ramirez ; Tank Gomez ; Jong Malik ; Liliana Gauthier ; Kina Villa Other Interventions: Discharge Summary Assessment (RN) Last Done: 03/04/23 15:07 Supervising Physician Co-Signing Physician Notes I personally examined the patient and verified all reeder points of history and exam, discussed case, and agree with decision making with Dr Lacey Yeungs about the same. extensive discussion on OHS and weight loss - she expressed good understanding. outlined eating plan and exercise. Vitals noted, in general she is in no distress. HEENT normocephalic atraumatic mucous membranes moist. Breathing unlabored no accessory muscle use good effort. Skin shows no rashes no pallor or icterus. d/w pulmonary Dyspnea on exertioneverything pointing far more towards pulmonary sourceI suspect a mixed picture restrictive from OHS, as well as may be a degree of obstructive given the obstructive pattern of her flow-volume loop and her FEV1/FVC ratio, as well as her wheezing --discussed lifestyle change at length for ohs. already uses CPAP. basically 100% compliance. pulmonary follow-up to ensure settings are good -- Symbicort for asthma -- To be clear, with no pulmonary edema on chest CT, low BNPI really do not think she ever had diastolic CHF, although I admit this is up for debate. Otherwise as above
[2023-03-04] MEDS: BUDESONIDE 0.25 MG/2 ML VIAL (PULMICORT) NEB SCH (07:25)
[2023-03-04] MEDS: FORMOTEROL 20 MCG/2 ML VIAL NEB SCH (07:25)
[2023-03-04 08:21] LABS: Hematocrit (blood only) 40.8 % (37.0-47.0); Hemoglobin 13.7 g/dl (12.0-16.0); Mean Corpuscular Hemoglobin 29.8 pg (25.0-34.0); Mean Corpuscular Hgb Conc 33.6 g/dL (32.0-36.0); Mean Corpuscular Volume 88.9 fL (80.0-100.0); Mean Platelet Volume 11.5 fL (9.4-12.4); Platelet Count 158 K/uL (130-400); RDW Coefficient of Variation 13.6 % (11.5-14.5); RDW Standard Deviation 44.7 fL (36.4-46.3); Red Blood Count 4.59 M/uL (4.20-5.40); White Blood Count 4.82 K/ul (4.8-10.8)
[2023-03-04] MEDS: CALCIUM CITRATE 950 MG TAB PO SCH (08:26)
[2023-03-04] MEDS: ZINC SULFATE 220 MG CAPSULE PO SCH (08:27)
[2023-03-04] MEDS: ENALAPRIL MALEATE 10 MG TAB PO SCH (08:27)
[2023-03-04] MEDS: ATORVASTATIN 40 MG TAB PO SCH (08:27)
[2023-03-04] MEDS: CETIRIZINE HCL 10 MG TABLET PO SCH (08:27)
[2023-03-04] MEDS: PANTOprazole 40 MG TAB PO SCH (08:27)
[2023-03-04] MEDS: CITALOPRAM 40 MG TAB PO SCH (08:27)
[2023-03-04 08:34] LABS: BUN Creatinine Ratio 27.5 (10-20); Calcium 8.8 mg/dl (8.6-10.3); Creatinine Clr Calc Pharmacy 57.4 ml/min; Est GFR (African American) 44.2 ml/min; Est GFR (Non-African American) 38.1 ml/min; Magnesium 1.9 mg/dl (1.7-2.4); Phosphorus 3.8 mg/dl (2.5-4.9)
[2023-03-04 08:40] LABS: INR 2.5 (0.9-1.1); Prothrombin Time 25.1 Seconds (9.0-12.0)
[2023-03-04] MEDS ORDERED: FUROSEMIDE 40 MG TAB PO SCH (09:00)
[2023-03-04] MEDS: INSULIN ASPART PER UNIT CHARGE SC SCH ×2 (09:37→13:42)
[2023-03-04] MEDS: LANTUS PER UNIT CHARGE SQ SCH (09:37)
[2023-03-04] MEDS: FLUTICASONE PROPIONATE NA SPR 16 GM BTL SCH (10:26)
--- NOTE | 2023-03-04 12:08 | Pulmonology Progress Note ---
Date of Service March 04, 2023 Assessment & Plan (1) Sleep apnea with use of continuous positive airway pressure (CPAP): (2) Dyspnea on exertion: (3) COPD (chronic obstructive pulmonary disease): (4) Abnormal chest CT: (5) Asthma: Asthma complication type: uncomplicated Asthma persistence: intermittent Asthma severity: mild Qualified Code(s): J45.20 - Mild intermittent asthma, uncomplicated (6) Tracheal deviation: Plan CT chest 03/02/2023 personally reviewed: Enlarged right thyroid lobe with tracheal deviation to the left Nodularity appreciated in the right fissure as well as the right pleura (unchanged 03/2016) No significant mediastinal lymphadenopathy 2D echo 03/02/2023: EF 60-65%, moderate concentric LVH, grade 2 diastolic dysfunction, RV not visualized Spirometry 03/03/2023: Moderate obstructive lung dysfunction FEV1 1.32 L 50%, FVC 2.06 L 60%, FEV1/FVC 64% -- Shortness of breath Multifactorial BMI 50 Obstruction on the PFT Likely pulmonary hypertension from DAVID and obesity Grade 2 diastolic dysfunction BNP 26 --Asthma Moderate obstruction Patient likely has restrictive component as well from underlying obesity Only on Albuterol as needed right now On discharge would recommend Symbicort 80-4.5 mcg 2 puffs twice a day -- DAVID Continue with CPAP -- Abnormal chest CT Nodularity on the right-sided pleural is most likely from pleurodesis which was done approximately 7 years ago Does not need any further follow-up --History of PE On warfarin --Morbid obesity Advised to lose with diet and exercise Incentive spirometry -- Likely pulmonary hypertension Likely combination of type II and type III Right ventricle was not visualized on the echo -- Tracheal deviation to the left Patient does have significant enlarged right side of the thyroid There is no stridor on the physical exam Flow-volume loop does not show any fixed obstruction Plan: Diuresis as tolerated Continue with Brovana and budesonide. On discharge would recommend Symbicort 80-4.5 mcg 2 puffs twice a day Continue with CPAP Incentive spirometry will be beneficial Case was discussed with primary team Please note the above document was generated using voice recognition software. It may contain grammatical, syntax or spelling errors.Any formal questions or concerns about the content, text or information contained within the body of this dictation should be directly addressed to the provider for clarification. Admission and Anticipated Discharge Date Admission Date: March 01, 2023 Subjective Patient seen and examined at bedside. No acute distress, no adverse events overnight Patient stated she felt better after the nebulizer treatment was started She walked around in the corridor without any significant shortness of breath on exertion No chest pain, no chest tightness, no wheezing Occasional cough with clear phlegm Review of Systems Review of Systems: All systems reviewed & are unremarkable except as noted in Subjective Physical Exam Physical Exam: Constitutional: No acute distress HEENT: EOMI, PERRLA, enlarge right side of the thyroid, no stridor Respiratory system: Decreased air entry bilaterally, no rhonchi, no crackles, no wheeze CVS: S1-S2 positive, no murmurs or gallops, distant heart sounds Abdomen: Soft, nontender, nondistended, positive bowel sounds x4, obese Extremities: +2 pulses bilaterally radialis/ dorsalis pedis, no cyanosis, +2 pitting edema bilateral lower extremity Neuro: Awake alert oriented x3 Psych: Normal mood and affect G/U: No Avendano Skin: no rashes, warm and dry Lymphatic: no cervical or axillary lymphadenopathy Results & Data Results & Data Vital Signs (Past 12 Hours) Vital Signs Temp Pulse Pulse Pulse Resp BP Pulse Ox 03/04/23 10:36 03/04/23 07:59 36.6 C 67 16 127/71 93 03/04/23 07:25 65 18 95 03/04/23 03:29 71 15 92 03/04/23 00:25 73 16 90 O2 Del Method 03/04/23 10:36 Room Air 03/04/23 07:59 Room Air 03/04/23 07:25 Room Air 03/04/23 03:29 03/04/23 00:25 Laboratory Results 03/04/23 07:46 03/04/23 07:46 PG Care Time/CCT Total # of Minutes Spent Total Time Spent with Patient: Total time spent is greater than 50% in coordination of care (as documented) at patient's floor/unit and/or counseling patient: Coding Level of Care Code 15960 SUB INP/OBS CARE 3/50MIN Diagnoses Sleep apnea with use of continuous positive airway pressure (CPAP) G47.30 Dyspnea on exertion R06.09 COPD (chronic obstructive pulmonary disease) J44.[address] R93.89 Asthma J45.20 Asthma complication type: uncomplicated Asthma persistence: intermittent Asthma severity: mild Tracheal deviation J39.8
[2023-03-04] MEDS: WARFARIN SOD 7.5 MG TAB PO SCH (15:46)
--- NOTE | 2023-03-04 19:46 | Billing Data ---
Date of Service March 04, 2023 Coding Level of Care Code 14621 IN/OBS DISCH 30 MIN/LESS
[2023-03-05] MEDS ORDERED: WARFARIN SOD 5 MG TAB PO SCH (16:00)
== END 2023-03-04 16:13 | disposition home or self-care (01) | DRG 204 ==
LOC: ED 14:58 → 3N 21:34 → SUATTDRO 21:34 → 3N 23:29

== ENCOUNTER 2025-01-15 12:22 | Inpatient (IN) ==
--- NOTE | 2025-01-15 13:42 | XRay Report ---
XR chest 1V not portable CLINICAL HISTORY: Chest pain, nonspecific COMPARISON STUDY: 03/03/2023 FINDINGS: Stable pacemaker. Heart size and pulmonary vasculature are normal. There is mild blunting o f the right costophrenic angle. No other consolidation or pleural effusion. No pneumothorax. IMPRESSION: Possible mild consolidation/trace pleural effusion right lung base. ACT 112: Negative or not required by law. Electronically signed by: Andi Fournier M.D. 01/15/2025 1:41 PM
[2025-01-15 14:24] LABS: Basophils # (auto) 0.03 K/uL (0.00-0.20); Basophils % (auto) 0.6 %; Eosinophils # (auto) 0.11 K/uL (0.00-0.50); Eosinophils % (auto) 2.1 %; Hematocrit (blood only) 43.8 % (37.0-47.0); Hemoglobin 14.5 g/dl (12.0-16.0); Immature Granulocytes # (auto) 0.01 K/uL (0.01-0.20); Immature Granulocytes % (auto) 0.2 %; Lymphocytes # (auto) 1.01 K/uL (1.20-3.40); Lymphocytes % (auto) 19.4 %; Mean Corpuscular Hemoglobin 29.5 pg (25.0-34.0); Mean Corpuscular Hgb Conc 33.1 g/dL (32.0-36.0); Mean Corpuscular Volume 89.2 fL (80.0-100.0); Mean Platelet Volume 11.8 fL (9.4-12.4); Monocytes # (auto) 0.43 K/uL (0.11-0.59); Monocytes % (auto) 8.3 %; Neutrophils # (auto) 3.62 K/uL (1.40-6.50); Neutrophils % (auto) 69.4 %; Platelet Count 156 K/uL (130-400); RDW Coefficient of Variation 14.4 % (11.5-14.5); RDW Standard Deviation 46.5 fL (36.4-46.3); Red Blood Count 4.91 M/uL (4.20-5.40); White Blood Count 5.21 K/ul (4.8-10.8)
[2025-01-15 14:34] LABS: Albumin Globulin Ratio 0.9 (0.9-2); Albumin Level 3.6 gm/dl (3.4-5.0); BUN Creatinine Ratio 26.7 (10-20); Bilirubin,Total 0.9 mg/dl (0.2-1.0); Calcium 8.6 mg/dl (8.6-10.3); Creatinine Clr Calc Pharmacy 57.7 ml/min; Globulin 4.2 gm/dl (2.5-4.0); Potassium 4.5 mmol/L (3.5-5.1); Total Protein 7.8 gm/dl (6.0-8.3)
[2025-01-15 14:40] LABS: Troponin I High Sensitivity 11.7 pg/ml (0-14)
[2025-01-15 14:46] LABS: INR 2.5 (0.9-1.1); Partial Thromboplastin Ratio 1.6; Partial Thromboplastin Time 43 Seconds (21-31); Prothrombin Time 25.2 Seconds (9.0-12.0)
[2025-01-15 15:09] LABS: Adenovirus PCR Not Detected (NotDetected); Bordetella parapertussis PCR Not Detected (NotDetected); Bordetella pertussis PCR Not Detected (NotDetected); Chlamydia pneumoniae PCR Not Detected (NotDetected); Coronavirus 229E PCR Not Detected (NotDetected); Coronavirus CoV-2 (COVID19)PCR Not Detected (NotDetected); Coronavirus HKU1 PCR Not Detected (NotDetected); Coronavirus NL63 PCR Not Detected (NotDetected); Coronavirus OC43PCR Not Detected (NotDetected); Human Metapneumovirus PCR Not Detected (NotDetected); Influenza A (H3) PCR DETECTED (NotDetected); Influenza B PCR Not Detected (NotDetected); Mycoplasma pneumoniae PCR Not Detected (NotDetected); Parainfluenza Virus 1 PCR Not Detected (NotDetected); Parainfluenza Virus 2 PCR Not Detected (NotDetected); Parainfluenza Virus 3 PCR Not Detected (NotDetected); Parainfluenza Virus 4 PCR Not Detected (NotDetected); Respiratory Syncytial VirusPCR Not Detected (NotDetected); Rhinovirus/Enterovirus PCR Not Detected (NotDetected)
--- NOTE | 2025-01-15 15:15 | Emergency Department Note ---
Impression & Plan Pneumonia, Influenza A, Hypoxia ED Provider Note NAME: URIEL MORALES AGE: 69 SEX: F : 1955 ARRIVES VIA: Walk-In INFORMANT: Patient, ED PROVIDER(S): Eddi Franco DO CHIEF COMPLAINT: Cough and shortness of breath HPI: The patient is a 69-year-old female who presented to the emergency department for an evaluation of cough and shortness of breath. The patient has been noticing symptoms over the course the last few days. She denies having any vomiting or abdominal pain. She denies having any leg swelling. The patient started noticing dizziness upon standing who presented to the emergency department. The patient was noted to have hypoxia. The patient states that she did not see her family doctor today. ROS: See above HPI for pertinent positives & negatives. A total of 10 systems reviewed and were otherwise negative. PAST MEDICAL HISTORY: See Below PAST SURGICAL HISTORY: See Below FAMILY HISTORY: See Below SOCIAL HISTORY: See Below HOME MEDICATIONS: See Below ALLERGIES: See Below VITALS: See Below PHYSICAL EXAMINATION: GENERAL: Patient is awake alert in no acute distress patient is resting comfortably and showing no signs of anxiety EYES: The conjunctivae are clear. The pupils are round and reactive. EARS, NOSE, MOUTH AND THROAT: The nose is without any evidence of any deformity. Mucous membranes are moist. NECK: The neck is nontender and supple. RESPIRATORY: Diminished breath sounds are noted in the right lung field. There were fine rales in the left lung field. There is mild tachypnea with conversational dyspnea. CARDIOVASCULAR: Regular rate and rhythm noted there no murmurs rubs or gallops normal S1 normal S2. GASTROINTESTINAL: The abdomen is soft. Abdomen is nontender. MUSCULOSKELETAL/EXTREMITIES: There is no evidence of gross deformity full range of motion is noted in the hips and shoulders. SKIN: There is no obvious evidence of any rash. There are no petechiae, pallor or cyanosis noted. NEUROLOGIC: Patient is awake alert and oriented x3 MEDICAL DECISION MAKING: The patient is a 69-year-old female who presented to the emergency department for an evaluation of difficulty breathing. The patient was coughing. She states she has had symptoms for several days but started to get worse over the last couple days. She was found to have signs of pneumonia on chest x-ray. She was treated with IV antibiotics. She was also placed on supplemental oxygen. Her flu swab was positive for influenza A. Given her findings as well as her vital signs I do not feel the patient be a good candidate for outpatient management. For this reason I discussed her condition with the on-call [facility] hospitalist. They have agreed to evaluate the patient in the emergency department for further management and disposition. Triage Nursing notes reviewed. Prior medical records reviewed Vital Signs: reviewed and remarkable for hypoxia. Differential diagnosis: Reactive airway disease, pneumonia, pneumothorax, COPD, CHF, infections, cardiac ischemia, pulmonary embolism, musculoskeletal, gastrointestinal, as well as other pathologies. ER treatment provided: See below Diagnostics interpreted by me: ECG: EKG was obtained in the emergency department. My interpretation is normal sinus rhythm at 63 bpm. There is no ectopy. Poor R wave progression was noted. This was compared to a tracing from March 01, 2023. No changes were noted. Cardiac Monitoring: An order was placed for continuous cardiac monitoring. The monitor shows a rate of 66 bpm with sinus rhythm. Laboratory studies: As stated above and show below. Imaging studies: See below. Radiographic imaging was reviewed by myself Consultation(s): I discussed with Dr. Phan who is on-call for the [facility] hospitalist group. Past Med/Surg History Problem List Hypoxia (Acute) Influenza A (Acute) Pneumonia (Acute) Multinodular goiter (nontoxic) RIGHT Mass effect. Tracheal deviation Mass of right side of neck Hyperkalemia Atherosclerosis Lumbar radicular pain Statin-induced rhabdomyolysis Ischemic cerebrovascular disease LVH (left ventricular hypertrophy) Proteinuria Bilateral leg edema B12 deficiency Stage 3b chronic kidney disease Abnormal chest CT COPD (chronic obstructive pulmonary disease) Sleep apnea with use of continuous positive airway pressure (CPAP) RACHEL (acute kidney injury) (Acute) Diabetic neuropathy Type 2 diabetes mellitus Pacemaker Dyspnea on exertion Pulmonary embolism Hematuria, microscopic Frequent UTI Renal cyst Morbid obesity (Chronic) Multinodular goiter (Chronic) Chronic venous insufficiency (Chronic) Spinal stenosis, lumbar region with neurogenic claudication Arthritis (Chronic) Asthma (Chronic) Diabetic nephropathy (Chronic) GERD without esophagitis (Chronic) Vitamin D deficiency (Chronic) 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) Osteopenia (Chronic) Heart disease (Chronic) HTN (hypertension) (Chronic) Celiac disease (Chronic) Anxiety (Chronic) Depressive disorder (Chronic) Hyperlipidemia (Chronic) Hypothyroidism (Chronic) Sleep apnea (Chronic) Medical History Fluid overload Other specified disorders of adrenal glands Carpal tunnel syndrome Factor V Leiden mutation Hepatic steatosis Microalbuminuria due to type 2 diabetes mellitus Secondary hyperparathyroidism Lumbago Lyme disease Pulmonary embolism Surgical History Status post laser ablation of incompetent vein (07/16/20) L GSV ablation w/ VenaSeal closure History of lumbar laminectomy History of carpal tunnel release of both wrists H/O cardiac catheterization H/O total adrenalectomy History of hysterectomy Family History Father Diabetes Hypertension Lung disease Sister Lung cancer Denies family history of Ovarian cancer Prostate cancer Coronary heart disease Heart disease Myocardial infarction Breast cancer Colorectal cancer Social History Smoking Status: Former smoker Tobacco Type: Cigarettes Age Started Using Tobacco: 16; Age Quit Using Tobacco: 28; packs per day: 0.5; Second Hand Exposure: No; Do You Dip or Chew Tobacco: No; Hx Alcohol Use: No Hx Substance Use: No Preferred Language: Azeri Communication Ability: Effective Visual Impairment: No Limitations Hearing Ability: Normal Physical Security Engineer Required: No Beliefs That Will Affect Care: None marital status: Current Living Situation: Spouse current occupational status: retired 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 How many Children do You have: 2 Feels Safe at Home: Yes Childhood Exposure to Second-Hand Smoke: Yes Diet: regular Diet Comment: regular caffeine: Yes during the past year weight has: remained stable Dental Care, Regularly: No Physical Activity Frequency: 1-2 Times per Week Seatbelt Use: always Sunscreen Use: Yes Assistive Devices: Cane and CPAP Allergies Allergies Allergy/AdvReac Type Severity Reaction Status Date / Time Penicillins Allergy Intermediate HIVES Verified 01/15/25 17:05 benzocaine Allergy Mild water Verified 01/15/25 17:05 blisters fenofibrate AdvReac Intermediate diarrhea Verified 01/15/25 17:05 morphine AdvReac Intermediate vomiting Verified 01/15/25 17:05 WHEAT/GLUTEN Allergy Intermediate CELIAC Uncoded 01/15/25 17:05 DISEASE--GI UPSET Home Meds Home Medications Medication Instructions Recorded Confirmed ipratropium 0.5 mg-albuterol 3 mg 3 ml inhalation Q6H PRN Shortness 09/13/19 01/15/25 (2.5 mg base)/3 mL nebulization Of Breath #180 mL soln omega-3 fatty acids 1,000 mg 1,000 mg PO DAILY 03/01/23 01/15/25 capsule zinc gluconate 50 mg tablet 50 mg PO DAILY 03/01/23 01/15/25 Previous Rx's Medication Instructions Recorded lancets 33 gauge (OneTouch Delica #100 ea 07/02/19 Lancets) blood sugar diagnostic (OneTouch #100 ea 04/01/22 Verio test strips) albuterol sulfate 90 mcg/actuation 2 puff inhalation Q4H PRN 02/21/23 aerosol inhaler (Ventolin HFA) Shortness Of Breath #18 grams albuterol sulfate 1.25 mg/3 mL 1.25 mg (3 mL) inhalation QID PRN 02/24/23 solution for nebulization shortness of breath or wheezing #75 mL levalbuterol HCl 0.63 mg/3 mL 0.63 mg (3 mL) inhalation TID PRN 03/03/23 solution for nebulization shortness of breath or wheezing #75 mL fluticasone propionate 50 2 spray intranasal DAILY #48 grams 03/14/23 mcg/actuation nasal spray,suspension blood-glucose meter,continuous #3 ea 03/28/23 (Evoke Pharmacom G7 Rubber Vulcanizing Machine Operator) insulin syringes (disposable) 1 mL #300 ea 03/28/23 warfarin 10 mg tablet 5 mg PO 2XWK #30 tabs 01/10/24 insulin lispro 100 unit/mL 120 unit (1.2 mL) subcut DAILY #40 05/18/24 subcutaneous solution (Admelog U-) mL clotrimazole-betamethasone 1 1 applic topical BID 2 weeks #15 05/29/24 %-0.05 % topical cream grams furosemide 20 mg tablet 20 mg PO DAILY #90 tabs 07/11/24 famotidine 40 mg tablet 40 mg PO BID #180 tabs 07/16/24 enalapril maleate 5 mg tablet 5 mg PO DAILY #90 tabs 08/02/24 citalopram 40 mg tablet (Celexa) 40 mg PO DAILY #90 tabs 08/06/24 blood-glucose sensor (Dexcom G7 #3 ea 08/15/24 Sensor device) insulin glargine 100 unit/mL (3 100 unit subcut DAILY 90 days #90 08/15/24 mL) subcutaneous pen (Basaglar mL KwikPen U-100 Insulin) warfarin 7.5 mg tablet 7.5 mg PO 5XWK #90 tabs 11/06/24 Wixela Inhub 250 mcg-50 mcg/dose 1 inh inhalation BID #60 ea 11/07/24 powder for inhalation (fluticasone propion-salmeterol) ezetimibe 10 mg tablet 10 mg PO DAILY #90 tabs 11/26/24 cetirizine 10 mg tablet 10 mg PO DAILY #90 tabs 12/31/24 methylprednisolone 4 mg tablets in See Rx Instructions PO .COMPLEX 12/31/24 a dose pack (Medrol (Bro)) #21 ea triamcinolone acetonide 0.5 % 1 applic topical BID #30 grams 12/31/24 topical cream diazepam 5 mg tablet 5 mg PO .COMPLEX #3 tabs 01/10/25 rosuvastatin 10 mg tablet 10 mg PO HS #90 tabs 01/10/25 pregabalin 25 mg capsule 25 mg PO BID #60 caps 01/14/25 amlodipine 5 mg tablet 5 mg PO PM #30 tabs 01/15/25 Results & Data (ED) Vital Signs Vital Signs - 24 hr 01/15/25 12:33 01/15/25 13:57 01/15/25 15:09 Temperature 36.4 C L Temperature Source Temporal Artery Scan Pulse Rate 83 Pulse Rate [Apical] 81 Pulse Rhythm Regular Pulse Strength Normal Respiratory Rate 18 23 Respiratory Effort / Characteristics Non-Labored Spontaneous Respiratory Depth Normal Blood Pressure 171/65 H Blood Pressure [Right Arm] 165/84 H Blood Pressure Mean 100 Blood Pressure Mean [Right Arm] 111 Pulse Oximetry 89 L 95 96 Oxygen Delivery Method Room Air Room Air Nasal Cannula Room Air Oxygen Flow Rate 2 Sepsis Recent Fever Within 48 Hours No Sepsis New/Unexplained Change in Mental Status N/A Sepsis Action Taken by Nursing No Action Required 01/15/25 15:09 01/15/25 15:09 01/15/25 15:30 Temperature Temperature Source Pulse Rate Pulse Rate [Apical] Pulse Rhythm Pulse Strength Respiratory Rate Respiratory Effort / Characteristics Respiratory Depth Blood Pressure 148/72 H Blood Pressure [Right Arm] Blood Pressure Mean 105 Blood Pressure Mean [Right Arm] Pulse Oximetry 97 Oxygen Delivery Method Nasal Cannula Nasal Cannula Oxygen Flow Rate 4 4 Sepsis Recent Fever Within 48 Hours Sepsis New/Unexplained Change in Mental Status Sepsis Action Taken by Nursing 01/15/25 15:33 01/15/25 15:42 01/15/25 16:03 Temperature Temperature Source Pulse Rate 61 61 63 Pulse Rate [Apical] Pulse Rhythm Pulse Strength Respiratory Rate 20 18 16 Respiratory Effort / Characteristics Respiratory Depth Blood Pressure 132/73 Blood Pressure [Right Arm] Blood Pressure Mean 92 Blood Pressure Mean [Right Arm] Pulse Oximetry 98 97 96 Oxygen Delivery Method Nebulizer Nasal Cannula Nasal Cannula Oxygen Flow Rate 7 4 4 Sepsis Recent Fever Within 48 Hours Sepsis New/Unexplained Change in Mental Status Sepsis Action Taken by Nursing 01/15/25 16:15 01/15/25 16:39 01/15/25 16:42 Temperature Temperature Source Pulse Rate 65 65 66 Pulse Rate [Apical] Pulse Rhythm Pulse Strength Respiratory Rate 15 19 16 Respiratory Effort / Characteristics Respiratory Depth Blood Pressure Blood Pressure [Right Arm] Blood Pressure Mean Blood Pressure Mean [Right Arm] Pulse Oximetry 97 95 97 Oxygen Delivery Method Nasal Cannula Nasal Cannula Nasal Cannula Oxygen Flow Rate 4 4 4 Sepsis Recent Fever Within 48 Hours Sepsis New/Unexplained Change in Mental Status Sepsis Action Taken by Correction Medications Current Medication List: was personally reviewed by me Laboratory Data Attestation: I reviewed the patient's lab results. 01/15/25 14:01 01/15/25 14:01 Lab Results 01/15/25 01/15/25 01/15/25 Range/Units 13:55 14:01 14:52 WBC 5.21 (4.8-10.8) K/ul RBC 4.91 (4.20-5.40) M/uL Hgb 14.5 (12.0-16.0) g/dl Hct 43.8 (37.0-47.0) % MCV 89.2 (80.0-100.0) fL MCH 29.5 (25.0-34.0) pg MCHC 33.1 (32.0-36.0) g/dL RDW Std Deviation 46.5 H (36.4-46.3) fL RDW Coeff of Tyler 14.4 (11.5-14.5) % Plt Count 156 (130-400) K/uL MPV 11.8 (9.4-12.4) fL Immature Gran % (Auto) 0.2 % Neut % (Auto) 69.4 % Lymph % (Auto) 19.4 % Becker % (Auto) 8.3 % Eos % (Auto) 2.1 % Baso % (Auto) 0.6 % Neut # (Auto) 3.62 (1.40-6.50) K/uL Lymph # (Auto) 1.01 L (1.20-3.40) K/uL Becker # (Auto) 0.43 (0.11-0.59) K/uL Eos # (Auto) 0.11 (0.00-0.50) K/uL Baso # (Auto) 0.03 (0.00-0.20) K/uL Immature Gran # (Auto) 0.01 (0.01-0.20) K/uL PT 25.2 H (9.0-12.0) Seconds INR 2.5 H (0.9-1.1) APTT 43 H (21-31) Seconds PTT Ratio 1.6 Sodium 139 (136-145) mmol/L Potassium 4.5 (3.5-5.1) mmol/L Chloride 106 (98-107) mmol/L Carbon Dioxide 29 (21-32) mmol/L Anion Gap 4 (3-11) BUN 35 H (6-23) mg/dl Creatinine 1.31 H (0.6-1.2) mg/dl Est Cr Clr Drug Dosing 57.7 ml/min eGFR 44.10 BUN/Creatinine Ratio 26.7 H (10-20) Glucose 172 H (70-99(Fasting)) mg/dl POC Glucose 137 H (70-99) mg/dl Calcium 8.6 (8.6-10.3) mg/dl Total Bilirubin 0.9 (0.2-1.0) mg/dl AST 26 (13-39) U/L ALT 17 (7-52) U/L Alkaline Phosphatase 59 (34-104) U/L Troponin I High Sens 11.7 (0-14) pg/ml Total Protein 7.8 (6.0-8.3) gm/dl Albumin 3.6 (3.4-5.0) gm/dl Globulin 4.2 H (2.5-4.0) gm/dl Albumin/Globulin Ratio 0.9 (0.9-2) Adenovirus (PCR) Not Detected (NotDetected) B. pertussis DNA (PCR) Not Detected (NotDetected) B.parapertussis DNA PCR Not Detected (NotDetected) C. pneumoniae DNA (PCR) Not Detected (NotDetected) Coronavirus OC43 (PCR) Not Detected (NotDetected) Coronavirus HKU1 (PCR) Not Detected (NotDetected) Coronavirus 229E (PCR) Not Detected (NotDetected) SARS-CoV-2 (PCR) Not Detected (NotDetected) Coronavirus NL63 (PCR) Not Detected (NotDetected) Human Metapneumovir PCR Not Detected (NotDetected) Influenza A (H3) PCR DETECTED A (NotDetected) Influenza Type B (PCR) Not Detected (NotDetected) M. pneumoniae (PCR) Not Detected (NotDetected) Parainfluenza 1 (PCR) Not Detected (NotDetected) Parainfluenza 2 (PCR) Not Detected (NotDetected) Parainfluenza 3 (PCR) Not Detected (NotDetected) Parainfluenza 4 (PCR) Not Detected (NotDetected) RSV (PCR) Not Detected (NotDetected) Entero/Rhino (PCR) Not Detected (NotDetected) Administered Medications Oseltamivir Phosphate (Oseltamivir Phosphate 75 Mg Cap) 75 mg PO BID [facility] Stop: 01/20/25 17:14 Last Admin: 01/15/25 17:19 Dose: 75 mg Documented By: ROSSY Discontinued Medications Albuterol (Albut/Ipratrop 3mg/0.5mg Neb 3 Ml Vial) 3 ml NEB NOW STA; Protocol Stop: 01/15/25 15:13 Last Admin: 01/15/25 15:21 Dose: 3 ml Documented By: LUMA Ceftriaxone Sodium (Rocephin) 2,000 mg in 50 mls @ 100 mls/hr IV NOW STA Stop: 01/15/25 15:41 Last Infusion: 01/15/25 16:18 Dose: Infused Documented By: Admin: 01/15/25 15:21 Dose: 100 mls/hr Documented By: LUMA Doxycycline Hyclate 100 mg/ (Dextrose) 100 mls @ 50 mls/hr IV NOW STA Stop: 01/15/25 17:11 Last Infusion: 01/15/25 18:20 Dose: Infused Documented By: Admin: 01/15/25 16:17 Dose: 50 mls/hr Documented By: SUSAN Insulin Aspart (Insulin Aspart Per Unit Charge) 4 units SC NOW STA Stop: 01/15/25 19:33 Last Admin: 01/15/25 19:42 Dose: 4 units Documented By: LUMA Co-signed By: WALKER Imaging Data Attestation: I personally reviewed and interpreted this imaging study as follows: My Impression: 1 chest x-ray was obtained in the emergency department. My interpretation is right-sided infiltrate noted, final report below. Radiologist's Impression: Chest X-Ray 01/15/25 12:38 XR chest 1V not portable CLINICAL HISTORY: Chest pain, nonspecific COMPARISON STUDY: 03/03/2023 FINDINGS: Stable pacemaker. Heart size and pulmonary vasculature are normal. There is mild blunting of the right costophrenic angle. No other consolidation or pleural effusion. No pneumothorax. IMPRESSION: Possible mild consolidation/trace pleural effusion right lung base. ACT 112: Negative or not required by law. Electronically signed by: Andi Fournier M.D. 01/15/2025 1:41 PM Discharge Plan Visit Data Chief Complaint: Shortness of Breath/Dyspnea Stated Complaint: SOB, CONGESTION ED Provider: Eddi Franco Discharge Problem: Pneumonia, Influenza A, Hypoxia Patient Disposition: Admitted As Inpatient Discharge Instructions Interventions: ED Discharge Assessment Last Done: 01/15/25 19:57
[2025-01-15] MEDS: ALBUT/IPRATROP 3MG/0.5MG NEB 3 ML VIAL NEB STA (15:21)
[2025-01-15] MEDS: cefTRIAXone SODIUM 2,000 MG/50 ML BAG IV STA (15:21)
[2025-01-15] MEDS: DOXYCYCLINE HYCLATE 100 MG in DEXTROSE 5% MINI-B 100 ML IV STA (16:17)
--- NOTE | 2025-01-15 16:21 | Electrocardiogram Report ---
Test Reason : Blood Pressure : */* mmHG Vent. Rate : 63 BPM Atrial Rate : 63 BPM P-R Int : 174 ms QRS Dur : 88 ms QT Int : 410 ms P-R-T Axes : 56 -31 90 degrees QTcB Int : 419 ms Normal sinus rhythm Left axis deviation Low voltage QRS Possible Anterolateral infarct (cited on or before 28-Sep-2015) Abnormal ECG When compared with ECG of 01-Mar-2023 19:29, No significant change was found Confirmed by Eddi Reza ([id number]) on 01/15/2025 4:20:47 PM Referred By: Confirmed By: Eddi Reza
--- NOTE | 2025-01-15 16:37 | History & Physical Report ---
Date of Service January 15, 2025 Assessment & Plan (1) Hypoxia: (2) Influenza A: (3) Pneumonia: (4) Stage 3b chronic kidney disease: (5) COPD (chronic obstructive pulmonary disease): Plan This pt is a 69 yo female with a h/o multinodular goiter, obesity, pacemaker for sinus node dysfunction,DM with neuropathy, chronic back pain w/ radiculopathy, Anxiety/depression, venous insufficiency, CKD stage III, HTN, HLD, hypothyroidism, GERD, asthma, celiac disease, h/o Factor V Leiden def/PE on warfarin, DAVID, and recurrent UTI, who presents to the ED with cough, SOB x 2-3 days and then had lightheadedness. Home POx showed 88%. In ED, found to be hypoxic, requiring 4LNC and with possible RLL PNA on CXR and positive for Flu A. In the ED, she was given ceftriaxone, azithromycin, nebs. Denies fevers, headache, sore throat, N/V/D or abdominal pain. SHe is admitted with Influenza A, COPD exacerbation, acute respiratory failure with hypoxia, and PNA #Influenza A/COPD/Asthma exacerbation/acute respiratory failure with hypoxia/PNA -admit to med tele -start Tamiflu -start IV SOlumedrol 40mg bid -start DUonebs q6h and maintenance inhalers (which she has not been using at home) -continue supplemental O2 to keep POx> 90% -start ceftriaxone and azithro for CAP x 7 and 5 day course, respectively #Multinodular goiter-large, saw ENT and planning for thyroidectomy due to impingement on trachea TSH normal #Pacemaker/HTN/HLD-no acute issues, BPs normal -continue home enalapril, amlodipine -continue home Zetia, Crestor #CKD Stage III/Venous insufficiency-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-at baseline currently -follow BMP -continue enalapril #GERD/Celiac-no acute issues -continue pepcid #Obesity-BMI 46 -needs weight loss #DAVID-can use home CPAP #DMII, neuropathy-no acute issues -continue home Lyrica, duloxetine #Factor V Leiden Def/PE on warfarin-current INR therapeutic -continue home coumadin dose and follow daily INR while on abx and steroids DVT Proph-Coumadin Dispo-Admit to [facility] History of Present Illness Chief Complaint: Cough, SOB, lightheadedness Primary Care Provider: RONNIE Torres This pt is a 69 yo female with a h/o multinodular goiter, obesity, pacemaker for sinus node dysfunction,DM with neuropathy, chronic back pain w/ radiculopathy, Anxiety/depression, venous insufficiency, CKD stage III, HTN, HLD, hypothyroidism, GERD, asthma, celiac disease, h/o Factor V Leiden def/PE on w arfarin, DAVID, and recurrent UTI, who presents to the ED with cough, SOB x 2-3 days and then had lightheadedness. Home POx showed 88%. In ED, found to be hypoxic, requiring 4LNC and with possible RLL PNA on CXR and positive for Flu A. In the ED, she was given ceftriaxone, azithromycin, nebs. Denies fevers, headache, sore throat, N/V/D or abdominal pain. Allergies Allergy/AdvReac Type Severity Reaction Status Date / Time Penicillins Allergy Intermediate HIVES Verified 01/15/25 17:05 benzocaine Allergy Mild water Verified 01/15/25 17:05 blisters fenofibrate AdvReac Intermediate diarrhea Verified 01/15/25 17:05 morphine AdvReac Intermediate vomiting Verified 01/15/25 17:05 WHEAT/GLUTEN Allergy Intermediate CELIAC Uncoded 01/15/25 17:05 DISEASE--GI UPSET Home Medications Medication Instructions Recorded Confirmed Type lancets 33 gauge ([facility] 07/02/19 12/31/24 Rx Lancets) ipratropium 0.5 mg-albuterol 3 mg 3 ml inhalation Q6H PRN Shortness 09/13/19 01/15/25 History (2.5 mg base)/3 mL nebulization Of Breath #180 mL soln blood sugar diagnostic ([facility] #100 ea 04/01/22 12/31/24 Rx Verio test strips) albuterol sulfate 90 mcg/actuation 2 puff inhalation Q4H PRN 02/21/23 01/15/25 Rx aerosol inhaler (Ventolin HFA) Shortness Of Breath #18 grams albuterol sulfate 1.25 mg/3 mL 1.25 mg (3 mL) inhalation QID PRN 02/24/23 01/15/25 Rx solution for nebulization shortness of breath or wheezing #75 mL omega-3 fatty acids 1,000 mg 1,000 mg PO DAILY 03/01/23 01/15/25 History capsule zinc gluconate 50 mg tablet 50 mg PO DAILY 03/01/23 01/15/25 History levalbuterol HCl 0.63 mg/3 mL 0.63 mg (3 mL) inhalation TID PRN 03/03/23 01/15/25 Rx solution for nebulization shortness of breath or wheezing #75 mL fluticasone propionate 50 2 spray intranasal DAILY #48 grams 03/14/23 01/15/25 Rx mcg/actuation nasal spray,suspension blood-glucose meter,continuous #3 ea 03/28/23 12/31/24 Rx (Dexcom G7 Philosophy Faculty Member) insulin syringes (disposable) 1 mL #300 ea 03/28/23 12/31/24 Rx warfarin 10 mg tablet 5 mg PO 2XWK #30 tabs 01/10/24 01/15/25 Rx insulin lispro 100 unit/mL 120 unit (1.2 mL) subcut DAILY #40 05/18/24 01/15/25 Rx subcutaneous solution (Admelog U-) mL clotrimazole-betamethasone 1 1 applic topical BID 2 weeks #15 05/29/24 01/15/25 Rx %-0.05 % topical cream grams furosemide 20 mg tablet 20 mg PO DAILY #90 tabs 07/11/24 01/15/25 Rx famotidine 40 mg tablet 40 mg PO BID #180 tabs 07/16/24 01/15/25 Rx enalapril maleate 5 mg tablet 5 mg PO DAILY #90 tabs 08/02/24 01/15/25 Rx citalopram 40 mg tablet (Celexa) 40 mg PO DAILY #90 tabs 08/06/24 01/15/25 Rx blood-glucose sensor (Dexcom G7 #3 ea 08/15/24 12/31/24 Rx Sensor device) insulin glargine 100 unit/mL (3 100 unit subcut DAILY 90 days #90 08/15/24 01/15/25 Rx mL) subcutaneous pen (Basaglar mL KwikPen U-100 Insulin) warfarin 7.5 mg tablet 7.5 mg PO 5XWK #90 tabs 11/06/24 01/15/25 Rx Wixela Inhub 250 mcg-50 mcg/dose 1 inh inhalation BID #60 ea 11/07/24 01/15/25 Rx powder for inhalation (fluticasone propion-salmeterol) ezetimibe 10 mg tablet 10 mg PO DAILY #90 tabs 11/26/24 01/15/25 Rx cetirizine 10 mg tablet 10 mg PO DAILY #90 tabs 12/31/24 01/15/25 Rx methylprednisolone 4 mg tablets in See Rx Instructions PO .COMPLEX 12/31/24 01/15/25 Rx a dose pack (Medrol (Bro)) #21 ea triamcinolone acetonide 0.5 % 1 applic topical BID #30 grams 12/31/24 01/15/25 Rx topical cream diazepam 5 mg tablet 5 mg PO .COMPLEX #3 tabs 01/10/25 01/15/25 Rx rosuvastatin 10 mg tablet 10 mg PO HS #90 tabs 01/10/25 01/15/25 Rx pregabalin 25 mg capsule 25 mg PO BID #60 caps 01/14/25 01/15/25 Rx amlodipine 5 mg tablet 5 mg PO PM #30 tabs 01/15/25 01/15/25 Rx Past Med/Surg History Problem List Hypoxia (Acute) Influenza A (Acute) Pneumonia (Acute) Multinodular goiter (nontoxic) RIGHT Mass effect. Tracheal deviation Mass of right side of neck Hyperkalemia Atherosclerosis Lumbar radicular pain Statin-induced rhabdomyolysis Ischemic cerebrovascular disease LVH (left ventricular hypertrophy) Proteinuria Bilateral leg edema B12 deficiency Stage 3b chronic kidney disease Abnormal chest CT COPD (chronic obstructive pulmonary disease) Sleep apnea with use of continuous positive airway pressure (CPAP) RACHEL (acute kidney injury) (Acute) Diabetic neuropathy Type 2 diabetes mellitus Pacemaker Dyspnea on exertion Pulmonary embolism Hematuria, microscopic Frequent UTI Renal cyst Morbid obesity (Chronic) Multinodular goiter (Chronic) Chronic venous insufficiency (Chronic) Spinal stenosis, lumbar region with neurogenic claudication Arthritis (Chronic) Asthma (Chronic) Diabetic nephropathy (Chronic) GERD without esophagitis (Chronic) Vitamin D deficiency (Chronic) MCC (current) use of anticoagulants (Chronic) Osteopenia (Chronic) Heart disease (Chronic) HTN (hypertension) (Chronic) Celiac disease (Chronic) Anxiety (Chronic) Depressive disorder (Chronic) Hyperlipidemia (Chronic) Hypothyroidism (Chronic) Sleep apnea (Chronic) Medical History Fluid overload Other specified disorders of adrenal glands Carpal tunnel syndrome Factor V Leiden mutation Hepatic steatosis Microalbuminuria due to type 2 diabetes mellitus Secondary hyperparathyroidism Lumbago Lyme disease Pulmonary embolism Surgical History Status post laser ablation of incompetent vein (07/16/20) L GSV ablation w/ VenaSeal closure History of lumbar laminectomy History of carpal tunnel release of both wrists H/O cardiac catheterization H/O total adrenalectomy History of hysterectomy Family History Father Diabetes Hypertension Lung disease Sister Lung cancer Denies family history of Ovarian cancer Prostate cancer Coronary heart disease Heart disease Myocardial infarction Breast cancer Colorectal cancer Social History Smoking Status: Former smoker Tobacco Type: Cigarettes Age Started Using Tobacco: 16; Age Quit Using Tobacco: 28; packs per day: 0.5; Second Hand Exposure: No; Do You Dip or Chew Tobacco: No; Hx Alcohol Use: No Hx Substance Use: No Preferred Language: French Communication Ability: Effective Visual Impairment: No Limitations Hearing Ability: Normal Supervisor Rod Placing Required: No Beliefs That Will Affect Care: None marital status: Current Living Situation: Spouse current occupational status: retired 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 How many Children do You have: 2 Feels Safe at Home: Yes Childhood Exposure to Second-Hand Smoke: Yes Diet: regular Diet Comment: regular caffeine: Yes during the past year weight has: remained stable Dental Care, Regularly: No Physical Activity Frequency: 1-2 Times per Week Seatbelt Use: always Sunscreen Use: Yes Assistive Devices: Cane and CPAP Review of Systems Review of Systems: All systems reviewed & are unremarkable except as noted in HPI & below Physical Exam Constitutional: WD/WN, vitals as above Eyes: PERRL, conjunctivae normal, anicteric sclerae ENMT: external ear and nose normal, oropharynx normal Neck: trachea midline, no thyromegaly Respiratory: normal respiratory effort and + cough Auscultation: + diminished lung sounds (at right base); no crackles, no rhonchi and no wheezes Cardiovascular: RRR, no murmur, no edema Chest (Breasts): Chest: normal inspection of chest Gastrointestinal (Abdomen): normal bowel sounds, soft, nontender, no h epatosplenomegaly Musculoskeletal: Extremities: extremities normal to inspection; no cyanosis and no clubbing Skin: no rashes, warm and dry Neurologic: moves all extremities and awake; no focal motor deficits Psychiatric: A+Ox3, euthymic affect Lymphatic: no lymphedema Results & Data Results & Data Vital Signs (Past 12 Hours) Vital Signs Temp Pulse Pulse Resp BP BP Pulse Ox 01/15/25 15:09 97 01/15/25 15:09 01/15/25 15:09 81 23 165/84 H 96 01/15/25 13:57 95 01/15/25 12:33 36.4 C L 83 18 171/65 H 89 L O2 Del Method O2 Flow Rate 01/15/25 15:09 Nasal Cannula 4 01/15/25 15:09 Nasal Cannula 4 01/15/25 15:09 Room Air 01/15/25 13:57 Room Air, Nasal Cannula 2 01/15/25 12:33 Room Air Laboratory Results CBC, PT/PTT/INR, BMP, LFTs, Troponin, Biofire resp panel all reviewed Diagnostic Findings CXR reviewed ECG Additional Comments: ECG 01/15/25 at 1357 with NSR, rate 63, left axis deviation, no change from previous Code Status & VTE Plan Code Status FULL CODE VTE Prophylaxis Plan VTE Prophylaxis will be ordered: Yes PG Care Time/CCT Total # of Minutes Spent Total Time Spent with Patient: Total time spent is greater than 50% in coordination of care (as documented) at patient's floor/unit and/or counseling patient: Coding Level of Care Code 55200 INT INP/OBS CARE 3/75MIN Diagnoses Hypoxia R09.02 Influenza A J10.1 Pneumonia J18.9 Stage 3b chronic kidney disease N18.32 COPD (chronic obstructive pulmonary disease) J44.9
[2025-01-15] MEDS: OSELTAMIVIR PHOSPHATE 75 MG CAP PO SCH (17:19)
[2025-01-15] MEDS: INSULIN ASPART PER UNIT CHARGE SC STA (19:42)
[2025-01-15] MEDS ORDERED: GLUCOSE 10 TAB/TUBE PO PRN (19:57)
[2025-01-15] MEDS ORDERED: CARBOHYDRATES FOR HYPOGLYCEMIA PO PRN (19:57)
[2025-01-15] MEDS ORDERED: DEXTROSE 50% 50 ML SYRINGE IV PRN (19:57)
[2025-01-15] MEDS ORDERED: GLUCAGON FOR INJ 1 MG VIAL SQ PRN (19:57)
[2025-01-15] MEDS ORDERED: ONDANSETRON INJ 2 MG/ML 2 ML VIAL IV PRN (19:57)
[2025-01-15] MEDS ORDERED: POLYETHYLENE (MIRALAX) 17 GM PACK PO PRN (19:57)
[2025-01-15] MEDS ORDERED: MAGNESIUM HYDROXIDE SUSP 30 ML UDC PO PRN (19:57)
[2025-01-15] MEDS ORDERED: ALUMINUM/MAGNESIUM SUSP 30 ML UDC PO PRN (19:57)
[2025-01-15] MEDS ORDERED: GLUCOSE 40% GEL 15 GM TUBE PO PRN (19:57)
[2025-01-15] MEDS ORDERED: NON-FORMULARY MEDICATION (Insulin Glargine [Basaglar Kwikpen U-100 Insulin] 100 unit/mL (3 SQ SCH (21:00)
[2025-01-15] MEDS: ALBUT/IPRATROP 3MG/0.5MG NEB 3 ML VIAL INH SCH (21:19)
[2025-01-15] MEDS: AZITHROMYCIN 250 MG TAB PO ONE (21:43)
[2025-01-15] MEDS: amLODIPine BESYLATE 5 MG TAB PO SCH (21:43)
[2025-01-15] MEDS: FAMOTIDINE 40 MG TABLET PO SCH (21:43)
[2025-01-15] MEDS: PREGABALIN 25 MG CAP PO SCH (21:43)
[2025-01-15] MEDS: ROSUVASTATIN CALCIUM 10 MG TAB PO SCH (21:44)
[2025-01-15] MEDS: INSULIN ASPART PER UNIT CHARGE SC SCH (23:03)
[2025-01-16] MEDS ORDERED: methylPREDNISolone 125 MG/2 ML VIAL IV SCH (00:40)
[2025-01-16] MEDS: methylPREDNISolone 40 MG in SYRINGE 0 ML IV SCH (00:59)
[2025-01-16 04:47] LABS: Basophils # (auto) 0.02 K/uL (0.00-0.20); Basophils % (auto) 0.4 %; Eosinophils # (auto) 0.03 K/uL (0.00-0.50); Eosinophils % (auto) 0.5 %; Hematocrit (blood only) 41.3 % (37.0-47.0); Hemoglobin 13.6 g/dl (12.0-16.0); Immature Granulocytes # (auto) 0.02 K/uL (0.01-0.20); Immature Granulocytes % (auto) 0.4 %; Lymphocytes # (auto) 0.73 K/uL (1.20-3.40); Lymphocytes % (auto) 13.1 %; Mean Corpuscular Hemoglobin 29.1 pg (25.0-34.0); Mean Corpuscular Hgb Conc 32.9 g/dL (32.0-36.0); Mean Corpuscular Volume 88.4 fL (80.0-100.0); Mean Platelet Volume 12.1 fL (9.4-12.4); Monocytes # (auto) 0.19 K/uL (0.11-0.59); Monocytes % (auto) 3.4 %; Neutrophils # (auto) 4.59 K/uL (1.40-6.50); Neutrophils % (auto) 82.2 %; Platelet Count 142 K/uL (130-400); RDW Coefficient of Variation 14.2 % (11.5-14.5); Red Blood Count 4.67 M/uL (4.20-5.40); White Blood Count 5.58 K/ul (4.8-10.8)
[2025-01-16 05:01] LABS: Calcium 8.5 mg/dl (8.6-10.3); Creatinine Clr Calc Pharmacy 55.2 ml/min; Magnesium 1.9 mg/dl (1.7-2.4); Potassium 4.4 mmol/L (3.5-5.1)
[2025-01-16 05:14] LABS: INR 2.9 (0.9-1.1); Prothrombin Time 28.9 Seconds (9.0-12.0)
[2025-01-16] MEDS: LANTUS PER UNIT CHARGE SQ SCH (08:46)
[2025-01-16] MEDS: FLUTICASONE/VILANTEROL 200/25MCG 14 PUFFS/INHALER INH SCH (08:48)
[2025-01-16] MEDS: FLUTICASONE PROPIONATE NA SPR 16 GM BTL NAE SCH (08:55)
[2025-01-16] MEDS: ENALAPRIL MALEATE 5 MG TAB PO SCH (08:56)
[2025-01-16] MEDS: CETIRIZINE HCL 10 MG TABLET PO SCH (08:57)
[2025-01-16] MEDS: CITALOPRAM 40 MG TAB PO SCH (08:58)
[2025-01-16] MEDS: EZETIMIBE 10 MG TAB PO SCH (08:58)
[2025-01-16] MEDS: AZITHROMYCIN 250 MG TAB PO SCH (09:52)
[2025-01-16] MEDS ORDERED: LANTUS PER UNIT CHARGE SC SCH ×2 (13:45→21:00)
--- NOTE | 2025-01-16 14:06 | Hospitalist Progress Note ---
Date of Service January 16, 2025 Assessment & Plan (1) Hypoxia: (2) Influenza A: (3) Pneumonia: (4) Stage 3b chronic kidney disease: (5) COPD (chronic obstructive pulmonary disease): Plan This pt is a 69 yo female with a h/o multinodular goiter, obesity, pacemaker for sinus node dysfunction,DM with neuropathy, chronic back pain w/ radiculopathy, Anxiety/depression, venous insufficiency, CKD stage III, HTN, HLD, hypothyroidism, GERD, asthma, celiac disease, h/o Factor V Leiden def/PE on warfarin, DAVID, and recurrent UTI, who presents to the ED with cough, SOB x 2-3 days and then had lightheadedness. Home POx showed 88%. In ED, found to be hypoxic, requiring 4LNC and with possible RLL PNA on CXR and positive for Flu A. In the ED, she was given ceftriaxone, azithromycin, nebs. Denies fevers, headache, sore throat, N/V/D or abdominal pain. SHe is admitted with Influenza A, COPD exacerbation, acute respiratory failure with hypoxia, and PNA #Influenza A/COPD/Asthma exacerbation/acute respiratory failure with hypoxia/PNA -improving, now weaned off O2 to room air at rest. -continue Tamiflu x 5 day course-adjust to renal dosing -continue IV Solumedrol 40mg bid -continue DUonebs q6h and maintenance inhalers (which she has not been using at home) -continue supplemental O2 to keep POx> 90%-weaned off fo rnow but may need 2 step walk test prior to discharge -cont ceftriaxone and azithro for CAP x 7 and 5 day course, respectively through 01/21 and 01/19 #DMII, neuropathy-With hyperglycemia from steroids, also pharmacy inadvertently cancelled her Lantus dose last evening so she did not receive the 60 units. 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 Blood sugars have been high. Feeling better. Tele with NSR normal rates Physical Exam Constitutional: WD/WN, vitals as above Neck: trachea midline, no thyromegaly Respiratory: normal respiratory effort and + cough Auscultation: + diminished lung sounds (at right base); no crackles, no rhonchi and no wheezes Cardiovascular: RRR, no murmur, no edema Chest (Breasts): Chest: normal inspection of chest Gastrointestinal (Abdomen): normal bowel sounds, soft, nontender, no hepatosplenomegaly Musculoskeletal: Extremities: extremities normal to inspection; no cyanosis and no clubbing Skin: no rashes, warm and dry Neurologic: moves all extremities and awake; no focal motor deficits Psychiatric: A+Ox3, euthymic affect Lymphatic: no lymphedema Results & Data Results & Data Vital Signs (Past 12 Hours) Vital Signs Pulse Pulse Resp BP Pulse Ox O2 Del Method O2 Flow Rate 01/16/25 10:15 93 Room Air 01/16/25 09:03 16 92 Nasal Cannula 1 01/16/25 08:21 75 16 96 Nasal Cannula 2 01/16/25 08:00 75 18 96 Nasal Cannula 2 01/16/25 07:06 18 96 Nasal Cannula, Other 2 01/16/25 06:59 69 01/16/25 06:42 72 20 94 Nasal Cannula 2 01/16/25 05:48 67 15 95 Nasal Cannula 2 01/16/25 05:47 138/55 L 01/16/25 05:45 66 17 93 Nasal Cannula 2 01/16/25 05:33 105 H 22 95 4 01/16/25 05:12 63 17 95 4 01/16/25 04:48 65 19 94 4 01/16/25 04:09 68 20 96 4 01/16/25 03:51 66 18 96 Nasal Cannula 4 01/16/25 03:27 78 18 01/16/25 03:03 68 16 91 01/16/25 02:51 65 18 92 Laboratory Results CBC, BMP, HgbA1C, INR, magnesium level reviewed PG Care Time/CCT Total # of Minutes Spent Total Time Spent with Patient: Total time spent is greater than 50% in coordination of care (as documented) at patient's floor/unit and/or counseling patient: Coding Level of Care Code 12331 SUB INP/OBS CARE 2/35MIN Diagnoses Hypoxia R09.02 Influenza A J10.1 Pneumonia J18.9 Stage 3b chronic kidney disease N18.32 COPD (chronic obstructive pulmonary disease) J44.9
[2025-01-16] MEDS: cefTRIAXone SODIUM 2,000 MG/50 ML BAG IV SCH (15:18)
[2025-01-16] MEDS: WARFARIN SOD 7.5 MG TAB PO SCH (16:39)
[2025-01-16] MEDS: FUROSEMIDE 40 MG TAB PO SCH (18:12)
[2025-01-16] MEDS: LANTUS PER UNIT CHARGE SC SCH (20:52)
[2025-01-16] MEDS: OSELTAMIVIR PHOSPHATE SUSP 30 MG/5 ML UDP PO SCH (21:00)
[2025-01-17 08:31] LABS: Basophils # (auto) 0.02 K/uL (0.00-0.20); Basophils % (auto) 0.2 %; Hematocrit (blood only) 40.4 % (37.0-47.0); Hemoglobin 13.6 g/dl (12.0-16.0); Immature Granulocytes # (auto) 0.05 K/uL (0.01-0.20); Immature Granulocytes % (auto) 0.4 %; Lymphocytes # (auto) 0.89 K/uL (1.20-3.40); Lymphocytes % (auto) 7.3 %; Mean Corpuscular Hemoglobin 29.6 pg (25.0-34.0); Mean Corpuscular Hgb Conc 33.7 g/dL (32.0-36.0); Mean Platelet Volume 11.8 fL (9.4-12.4); Monocytes # (auto) 0.35 K/uL (0.11-0.59); Monocytes % (auto) 2.9 %; Neutrophils % (auto) 89.2 %; Platelet Count 164 K/uL (130-400); RDW Coefficient of Variation 14.1 % (11.5-14.5); RDW Standard Deviation 45.4 fL (36.4-46.3); Red Blood Count 4.59 M/uL (4.20-5.40); White Blood Count 12.21 K/ul (4.8-10.8)
[2025-01-17 08:47] LABS: BUN Creatinine Ratio 28.2 (10-20); Calcium 8.4 mg/dl (8.6-10.3); Creatinine Clr Calc Pharmacy 50.8 ml/min; Magnesium 1.9 mg/dl (1.7-2.4); Potassium 4.6 mmol/L (3.5-5.1)
[2025-01-17 08:57] LABS: INR 3.5 (0.9-1.1); Prothrombin Time 34.4 Seconds (9.0-12.0)
[2025-01-17] MEDS: LANTUS PER UNIT CHARGE SQ SCH (09:38)
[2025-01-17] MEDS: INSULIN HUMAN REGULAR PER UNIT 10 UNITS in SYRINGE 9.9 ML IV ONE (12:44)
--- NOTE | 2025-01-17 14:23 | Hospitalist Progress Note ---
Date of Service January 17, 2025 Assessment & Plan (1) Hypoxia: (2) Influenza A: (3) Pneumonia: (4) COPD (chronic obstructive pulmonary disease): Plan This pt is a 69 yo female with a h/o multinodular goiter, obesity, pacemaker for sinus node dysfunction,DM with neuropathy, chronic back pain w/ radiculopathy, Anxiety/depression, venous insufficiency, CKD stage III, HTN, HLD, hypothyroidism, GERD, asthma, celiac disease, h/o Factor V Leiden def/PE on warfarin, DAVID, and recurrent UTI, who presents to the ED with cough, SOB x 2-3 days and then had lightheadedness. Home POx showed 88%. In ED, found to be hypoxic, requiring 4LNC and with possible RLL PNA on CXR and positive for Flu A. In the ED, she was given ceftriaxone, azithromycin, nebs. Denies fevers, headache, N/V/D or abdominal pain. Is now having a sore throat SHe is admitted with Influenza A, COPD exacerbation, acute respiratory failure with hypoxia, and PNA #Influenza A/COPD/Asthma exacerbation/acute respiratory failure with hypoxia/PNA -improving, now weaned off O2 to room air at rest and with exertion but continues w/ significant MERLOS despite POx 92% on RA with exertion. Sore throat has developed, some mild rhonchi. -continue Tamiflu x 5 day course- renal dosing -continue IV Solumedrol 40mg bid and plan to convert to prednisone on discharge -continue DUonebs q6h and maintenance inhalers (which she has not been using at home) -no O2 needed as per 2 step walk test -cont ceftriaxone and azithro for CAP x 7 and 5 day course, respectively through 01/21 and 01/19 (convert to po cefdinir on discharge) #DMII, neuropathy-With hyperglycemia from steroids ongoing. 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-remains at baseline, resumed home lasix on 01/16 -follow BMP periodically -continue enalapril #GERD/Celiac-no acute issues -continue pepcid #Obesity-BMI 46 -needs weight loss #DAVID-continue CPAP hs #Factor V Leiden Def/PE on warfarin- INR now supratherapeutic at 3.5-likely due to interaction with steroids and antibiotics -hold coumadin and follow daily INR while on abx and steroids DVT Proph-Coumadin Dispo-continued stay but can downgrade to medical status off tele, hopeful for dc to home on 01/18 Admission and Anticipated Discharge Date Admission Date: January 15, 2025 Subjective Pt weaned off O2 but still having MERLOS and some wheezing. Does not feel ready to go home yet. Blood glucose also running quite high with the steroids. Denies N/V/D. Is having a sore throat. Tele with NSR rates 60-70s Physical Exam Constitutional: WD/WN, vitals as above + morbidly obese ENMT: very large tongue, cannot visualize entire posterior OP No erythema or exudate in OP Right side of neck large goiter Neck: Thyroid: + thyromegaly (large goiter right side) Respiratory: normal respiratory effort Auscultation: + diminished lung sounds (at right base) and + rhonchi (right base); no crackles and no wheezes Cardiovascular: RRR, no murmur, no edema Chest (Breasts): Chest: normal inspection of chest Gastrointestinal (Abdomen): normal bowel sounds, soft, nontender, no hepatosplenomegaly Musculoskeletal: Extremities: extremities normal to inspection; no cyanosis and no clubbing Skin: no rashes, warm and dry Neurologic: moves all extremities and awake; no focal motor deficits Psychiatric: A+Ox3, euthymic affect Lymphatic: no lymphedema Results & Data Results & Data Vital Signs (Past 12 Hours) Vital Signs Temp Pulse Pulse Pulse Pulse Resp Resp 01/17/25 13:50 82 01/17/25 13:20 75 16 01/17/25 11:04 36.6 C 70 18 01/17/25 09:00 108 H 72 25 H 01/17/25 07:44 36.4 C L 73 20 01/17/25 07:40 01/17/25 07:09 71 16 01/17/25 07:00 60 01/17/25 02:44 36.6 C 69 18 Resp BP Pulse Ox Pulse Ox Pulse Ox O2 Del Method 01/17/25 13:50 01/17/25 13:20 93 Room Air 01/17/25 11:04 124/64 94 Room Air 01/17/25 09:00 18 92 92 01/17/25 07:44 120/77 91 Room Air 01/17/25 07:40 Room Air 01/17/25 07:09 94 Room Air 01/17/25 07:00 01/17/25 02:44 122/71 92 Room Air Laboratory Results CBC, BMP, INR, mag level reviewed PG Care Time/CCT Total # of Minutes Spent Total Time Spent with Patient: Total time spent is greater than 50% in coordination of care (as documented) at patient's floor/unit and/or counseling patient: Coding Level of Care Code 81362 SUB INP/OBS CARE 2/35MIN Diagnoses Hypoxia R09.02 Influenza A J10.1 Pneumonia J18.9 COPD (chronic obstructive pulmonary disease) J44.9
[2025-01-17] MEDS: ACETAMINOPHEN 325 MG TAB PO PRN (14:59)
[2025-01-17] MEDS: LANTUS PER UNIT CHARGE SC SCH (21:21)
[2025-01-18 07:17] VITALS: PULSE 65; RESP 16; TEMP 97.7; O2SAT 95
[2025-01-18 07:39] LABS: BUN Creatinine Ratio 34.8 (10-20); Calcium 8.6 mg/dl (8.6-10.3); Creatinine Clr Calc Pharmacy 53.7 ml/min; Potassium 4.8 mmol/L (3.5-5.1)
[2025-01-18 10:18] LABS: INR 3.5 (0.9-1.1)
[2025-01-18] MEDS ORDERED: ALBUT/IPRATROP 3MG/0.5MG NEB 3 ML VIAL INH PRN (12:06)
--- NOTE | 2025-01-18 13:16 | Discharge Summary ---
Discharge Summary Date of Service January 18, 2025 Principal Dx & Hospital Course #1 = Principal Diagnosis (1) Hypoxia: (2) Influenza A: (3) Pneumonia: (4) COPD (chronic obstructive pulmonary disease): Plan This pt is a 69 yo female with a h/o multinodular goiter, obesity, pacemaker for sinus node dysfunction,DM with neuropathy, chronic back pain w/ radiculopathy, Anxiety/depression, venous insufficiency, CKD stage III, HTN, HLD, hypothyroidism, GERD, asthma, celiac disease, h/o Factor V Leiden def/PE on warfarin, DAVID, and recurrent UTI, who presents to the ED with cough, SOB x 2-3 days and then had lightheadedness. Home POx showed 88%. In ED, found to be hypoxic, requiring 4LNC and with possible RLL PNA on CXR and positive for Flu A. In the ED, she was given ceftriaxone, azithromycin, nebs. Denies fevers, headache, N/V/D or abdominal pain. Is now having a sore throat She is admitted with Influenza A, COPD exacerbation, acute respiratory failure with hypoxia, and PNA #Influenza A/COPD/Asthma exacerbation/acute respiratory failure with hypoxia/PNA -much improved-now weaned off O2 to room air at rest and with exertion. MERLOS improved, sore throat improved and no further wheezing or rhonchi -continue Tamiflu x 5 day course- renal dosing-needs 2 more days after discharge -received IV Solumedrol 40mg bid and plan to convert to prednisone on discharge- 40mg daily x 4 more days -continue albuterol with spacer on discharge-gave Rx and she will resume home Wixela maintenance inhaler -no O2 needed as per 2 step walk test -received ceftriaxone and azithro for CAP -finish out course x 7 days total with po cefdinir and azithro after discharge #DMII, neuropathy-With hyperglycemia from steroids now improved. HgbA1C fairly well controlled at 7.3% -Continue home doses of Lantus and sliding scale Novolog, call PCP if glucose over 300 after return home -continue home Lyrica, duloxetine #Multinodular goiter-large, saw ENT and planning for possible thyroidectomy due to impingement on trachea TSH normal. FNA scheduled for next week I asked out Nurse Navigator to assist with Endocrine referral as outpt as requested by ENT #Pacemaker/HTN/HLD-no acute issues, BPs normal -continue home enalapril, amlodipine, lasix -continue home Zetia, Crestor #CKD Stage III/Venous insufficiency-baseline verification rep 1.3-1.4-remains at baseline, resumed home lasix on 01/16 -follow BMP periodically as outpt -continue enalapril #GERD/Celiac-no acute issues -continue pepcid #Obesity-BMI 46 -needs weight loss #DAVID-continue CPAP hs #Factor V Leiden Def/PE on warfarin- INR now supratherapeutic again at 3.5- likely due to interaction with steroids and antibiotics -hold coumadin 01/18 and 01/19, resume on 01/20 at 5mg daily and follow INR on Tuesday with PCP DVT Proph-Coumadin Dispo- dc to home Notes For Next Care Provider Check INR Sunday 01/21 Medication Changes From Visit See list Admission HPI Per Admitting Provider This pt is a 69 yo female with a h/o multinodular goiter, obesity, pacemaker for sinus node dysfunction,DM with neuropathy, chronic back pain w/ radiculopathy, Anxiety/depression, venous insufficiency, CKD stage III, HTN, HLD, hypothyroidism, GERD, asthma, celiac disease, h/o Factor V Leiden def/PE on warfarin, DAVID, and recurrent UTI, who presents to the ED with cough, SOB x 2-3 days and then had lightheadedness. Home POx showed 88%. In ED, found to be hypoxic, requiring 4LNC and with possible RLL PNA on CXR and positive for Flu A. In the ED, she was given ceftriaxone, azithromycin, nebs. Denies fevers, headache, sore throat, N/V/D or abdominal pain. Discharge Exam Constitutional WD/WN, vitals as above + morbidly obese Neck trachea midline, no thyromegaly Thyroid: + thyromegaly (large goiter right side) Respiratory normal respiratory effort Auscultation: lungs clear to auscultation bilaterally Cardiovascular RRR, no murmur, no edema Chest (Breasts) Chest: normal inspection of chest Gastrointestinal (Abdomen) normal bowel sounds, soft, nontender, no hepatosplenomegaly Musculoskeletal Extremities: extremities normal to inspection; no cyanosis and no clubbing Skin no rashes, warm and dry Neurologic moves all extremities and awake; no focal motor deficits Psychiatric A+Ox3, euthymic affect Lymphatic no lymphedema Discharge Plan Discharge Items Patient Disposition: Home - Self-Care Reason For Visit: FLU A,HYPOXIA,PNA Discharge Diagnosis: Influenza A Community acquired pneumonia COPD exacerbation Hypoxia-resolved Condition on Discharge: Good Activity: As commented below Lifting: Gradually increase as tolerated Bathing: No limitations Exercise/Sports: Gradually increase as tolerated Non-emergency contact: Primary Care Provider Call non-emergency contact if: you have any medication questions and your symptoms worsen Follow-up/Referrals: Gordo Peng CRNP [Primary Care Provider] - 01/25/25 8:20 am Diet: Carb Consistent or DM2 and Low Sodium (2gm) Addtl Attending Provider Instructions: Please finish out 4 more days of prednisone for your COPD exacerbation. You should start using your daily maintenance inhaler called Wixela and can use albuterol with a spacer as needed for cough or wheezing.You were weaned off of supplemental oxygen and will not need this at home. Please finish out 2 more days of the Tamiflu for the anti-viral treatment of influenza. You will also need 1 more dose of azithromycin and 4 more days of cefdinir as antibiotics for your pneumonia. Your blood glucose will be higher than usual due to taking prednisone. Please continue to use your sliding scale but call your doctor if your blood glucose goes above 300. Your INR was high at 3.5 on the day of discharge. Please HOLD your Coumadin on 01/18 and again on 01/19. You can resume taking Coumadin on 01/20 at 5mg daily and have your INR checked at the lab on Tuesday. Pending Studies at Discharge: No Stand-Alone Forms: My [facility] [employer] ([place]), Smoking Cessation Medications and DC Order Prescriptions: New azithromycin 250 mg Tablet 250 mg PO QAM Qty: 1 0RF oseltamivir 30 mg capsule 30 mg PO BID Qty: 4 0RF prednisone 20 mg tablet 40 mg PO DAILY 4 Days Qty: 8 0RF (DME) Space Chamber Spacer See Rx Instructions .Route Qty: 1 0RF Rx Instructions: As directed with albuterol inhaler cefdinir 300 mg capsule 300 mg PO BID Qty: 8 0RF Continued (DME) Dexcom G7 Linotype Mechanic Misc See Rx Instructions .Route Qty: 3 3RF Rx Instructions: As directed (DME) insulin syringes (disposable) 1 mL syringe See Rx Instructions .Route Qty: 300 2RF Rx Instructions: use for each injection at AM, afternoon, PM - 1 ml; 31G x 8" warfarin 10 mg tablet 5 mg PO 2XWK Qty: 30 1RF Protocol: Dose Management Condition: Tuesday Dose/Route: 7.5 mg Instruction: 1 x 7.5 mg tablet Condition: Tuesday Dose/Route: 7.5 mg Instruction: 1 x 7.5 mg tablet Condition: Tuesday Dose/Route: 7.5 mg Instruction: 1 x 7.5 mg tablet Condition: Tuesday Dose/Route: 7.5 mg Instruction: 1 x 7.5 mg tablet Condition: Dose/Route: 7.5 mg Instruction: 1 x 7.5 mg tablet Condition: Tuesday Dose/Route: 7.5 mg Instruction: 1 x 7.5 mg tablet Condition: Tuesday Dose/Route: 5 mg Instruction: 0.5 x 10 mg tablets Protocol Text: Adjustment Start Date: 01/10/25 INR Value: 2.4 INR Date: 01/03/25 Recheck Date: 01/24/25 Rx Instructions: TAKES TUESDAY & SATURDAYS PER PT. insulin lispro [Admelog U-100 Insulin lispro] 100 unit/mL solution 120 unit subcut DAILY Qty: 40 3RF citalopram [Celexa] 40 mg tablet 40 mg PO DAILY Qty: 90 3RF (DME) Dexcom G7 Sensor Device See Rx Instructions .Route Qty: 3 4RF Rx Instructions: As directed insulin glargine [Basaglar KwikPen U-100 Insulin] 100 unit/mL (3 mL) insulin pen 100 unit SQ DAILY 90 Days Qty: 90 1RF Rx Instructions: Inject 40 units in the AM and 60 units in the PM; TDD 100 units warfarin 7.5 mg tablet 7.5 mg PO 5XWK Qty: 90 1RF Protocol: Dose Management Condition: Tuesday Dose/Route: 7.5 mg Instruction: 1 x 7.5 mg tablet Condition: Tuesday Dose/Route: 7.5 mg Instruction: 1 x 7.5 mg tablet Condition: Tuesday Dose/Route: 7.5 mg Instruction: 1 x 7.5 mg tablet Condition: Tuesday Dose/Route: 7.5 mg Instruction: 1 x 7.5 mg tablet Condition: Dose/Route: 7.5 mg Instruction: 1 x 7.5 mg tablet Condition: Tuesday Dose/Route: 7.5 mg Instruction: 1 x 7.5 mg tablet Condition: Tuesday Dose/Route: 5 mg Instruction: 0.5 x 10 mg tablets Protocol Text: Adjustment Start Date: 01/10/25 INR Value: 2.4 INR Date: 01/03/25 Recheck Date: 01/24/25 Rx Instructions: TAKES SUN, TUE, TUE, , & TUE. PER PT. fluticasone propion-salmeterol [Wixela Inhub] 250-50 mcg/dose blister with device 1 inh inhalation BID Qty: 60 3RF ezetimibe 10 mg tablet 10 mg PO DAILY Qty: 90 1RF rosuvastatin 10 mg tablet 10 mg PO HS Qty: 90 3RF Rx Instructions: TAKE WITH OTC Co-Q10 100 MG NIGHTLY pregabalin 25 mg capsule 25 mg PO BID Qty: 60 0RF amlodipine 5 mg tablet 5 mg PO PM Qty: 30 6RF (DME) lancets [OneTouch Delica Lancets] 33 gauge misc See Dose Instructions .ROUTE .MEDSUPPLY Qty: 100 0RF Dose Instruction: As directed Rx Instructions: use 3 daily to test blood sugars (DME) OneTouch Verio test strips Strip See Dose Instructions .ROUTE .MEDSUPPLY Qty: 100 5RF Dose Instruction: As directed Rx Instructions: use 3 strips daily to test blood sugars fluticasone propionate 50 mcg/actuation spray,suspension 2 spray intranasal DAILY Qty: 48 2RF Rx Instructions: administer into each nostril clotrimazole-betamethasone 1-0.05 % cream 1 applic topical BID 14 Days Qty: 15 2RF famotidine 40 mg tablet 40 mg PO BID Qty: 180 3RF enalapril maleate 5 mg tablet 5 mg PO DAILY Qty: 90 3RF triamcinolone acetonide 0.5 % cream 1 applic topical BID Qty: 30 2RF cetirizine 10 mg tablet 10 mg PO DAILY Qty: 90 11RF omega-3 fatty acids 1,000 mg Capsule 1,000 mg PO DAILY zinc gluconate 50 mg Tablet 50 mg PO DAILY furosemide 40 mg tablet 40 mg PO QAM albuterol sulfate [Ventolin HFA] 90 mcg/actuation HFA aerosol inhaler 2 puff INH Q4H PRN (Reason: Shortness Of Breath) Qty: 18 6RF Discontinued albuterol sulfate 1.25 mg/3 mL solution for nebulization 1.25 mg inhalation QID PRN (Reason: shortness of breath or wheezing) Qty: 75 5RF Rx Instructions: dx code: j45.20 levalbuterol HCl 0.63 mg/3 mL solution for nebulization 0.63 mg inhalation TID PRN (Reason: shortness of breath or wheezing) Qty: 75 2RF diazepam 5 mg tablet 5 mg PO .COMPLEX Qty: 3 0RF Rx Instructions: 5 mg PO 1 PO qhs night prior, then 1.5 hours before procedure. ipratropium-albuterol 0.5 mg-3 mg(2.5 mg base)/3 mL solution for nebulization 3 ml inhalation Q6H PRN (Reason: Shortness Of Breath) Qty: 180 methylprednisolone [Medrol (Bro)] 4 mg tablets,dose pack See Rx Instructions PO .COMPLEX Qty: 21 0RF Rx Instructions: PO Per pack instructions; Discharge Orders: Discharge Order (Routine); Ordered 01/18/25 Ordered By: Jennifer Phan Admission Data Admit Date/Time: 01/15/25 16:57 Attending Provider: Jennifer Phan Admit Provider: Jennifer Phan Primary Care Provider: Gordo Peng Other Providers: Jennifer Phan Hospital Stay Data Consultations 01/15/25 15:42 ED Decision to Admit Stat Pending Results Patient Have Any Pending Studies at Discharge: No Discharge Instructions Given to Patient (Per Discharging Provider) Please finish out 4 more days of prednisone for your COPD exacerbation. You should start using your daily maintenance inhaler called Wixela and can use albuterol with a spacer as needed for cough or wheezing.You were weaned off of supplemental oxygen and will not need this at home. Please finish out 2 more days of the Tamiflu for the anti-viral treatment of influenza. You will also need 1 more dose of azithromycin and 4 more days of cefdinir as antibiotics for your pneumonia. Your blood glucose will be higher than usual due to taking prednisone. Please continue to use your sliding scale but call your doctor if your blood glucose goes above 300. Your INR was high at 3.5 on the day of discharge. Please HOLD your Coumadin on 01/18 and again on 01/19. You can resume taking Coumadin on 01/20 at 5mg daily and have your INR checked at the lab on Tuesday. Total Time Total Time Spent Total Time Spent (In Minutes): 35 min Total Time Includes: Examination of the Patient, Discharge Planning and Medication Reconciliation Coding Level of Care Code 62761 INP/OBS DISCH >30 MIN Diagnoses Hypoxia R09.02 Influenza A J10.1 Pneumonia J18.9 COPD (chronic obstructive pulmonary disease) J44.9
[2025-01-18 14:56] VITALS: BP 144/66
[2025-01-18] MEDS ORDERED: WARFARIN SOD 5 MG TAB PO SCH (16:00)
== END 2025-01-18 15:57 | disposition home or self-care (01) | DRG 193 ==
LOC: ED 12:22 → EDINP 16:57 → 2N 01-16 16:56 → 3E 01-17 18:14